=== PATIENT | male | born 1935 | race Caucasian/White ===

== ENCOUNTER 2016-11-02 01:30 | Inpatient (IN) | payer MEDICARE, OTHER ==
[2016-11-02] MEDS ORDERED: methylPREDNISolone SOD SUCC* 125 MG 2 ML VIAL IV ONE (01:32)
[2016-11-02] MEDS ORDERED: Albuterol/Ipratropium NEB.SOL* Albuterol 2.5 MG/Ipratropium 0.5 MG 3 ML INH ONE ×2 (01:32→02:02)
[2016-11-02] MEDS ORDERED: NS 0.9% 1000 ML* 1,000 ML IV SCH (01:45)
[2016-11-02 01:57] LABS: Hematocrit 37 % (42-52); Hemoglobin 11.3 g/dl (14.0-18.0); Mean Corpuscular HGB Conc 31 g/dl (31-36); Mean Corpuscular Hemoglobin 25 pg (27-31); Mean Corpuscular Volume 82 fL (80-94); Mean Platelet Volume 8 um3 (7.4-10.4); Red Blood Count 4.49 10^6/ul (4.0-5.4); Red Cell Distribution Width 19 % (10.5-15); White Blood Count 9.9 10^3/ul (3.5-10.8)
[2016-11-02] MEDS ORDERED: Albuterol/Ipratropium NEB.SOL* Albuterol 2.5 MG/Ipratropium 0.5 MG 3 ML ONE (01:59)
[2016-11-02 02:14] LABS: BUN/Creatinine Ratio 19.6 (8-20); C Reactive Protein 116.6 mg/L (< 5.00); EGFR African American 80.7 (>60); EGFR Non-African American 62.8 (>60); Globulin 3.2 g/dL (2-4); Magnesium 1.9 mg/dL (1.9-2.7); Potassium 4.2 mmol/L (3.5-5.0); Total Protein 7.2 g/dL (6.4-8.9)
[2016-11-02] MEDS ORDERED: NS 0.9% 1000 ML* 1,000 ML IV ONE (02:20)
[2016-11-02 02:23] LABS: TSH (Thyroid Stimulating Horm) 2.51 mcIU/mL (0.34-5.60); Troponin I 0.05 ng/mL (<0.04)
[2016-11-02 02:26] LABS: FIO2 100
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
[2016-11-02 02:28] LABS: PCO2 Arterial 42 mmHg (35-45)
[2016-11-02] MEDS ORDERED: CMCS: Melatonin (NF) 3 MG TAB PO PRN (03:17)
[2016-11-02] MEDS ORDERED: Ondansetron INJ* 2 MG/ML VIAL IV PRN (03:17)
[2016-11-02] MEDS ORDERED: Acetaminophen TAB* 325 MG PO PRN (03:17)
[2016-11-02] MEDS ORDERED: Albuterol 2.5 MG/3 ML NEB.SOL* (0.083%) INH PRN (03:17)
[2016-11-02] MEDS ORDERED: Diltiazem DRIP* 100 MG/100 ML ADDV.BAG IVPB ONE ×2 (04:30→04:58)
[2016-11-02] MEDS ORDERED: guaiFENesin ER TAB 600 MG PO PRN (04:53)
--- NOTE | 2016-11-02 04:57 | PN ---
Progress Note - Progress Note Note: Patient attempted to be transitioned from BiPap to VapoTherm. Work of breathing increasing precipitously within 5minutes while he maintained oxygenation. He was able to be re-stabilized back on BiPap. Situation reviewed with Clarissa Patterson MD supervisor telephone clerks re: continued monitoring on BiPap vs intubation given RML pneumonia. Dr Patterson recommended continued BiPap for now with close monitoring and conversion to intubation should he decompensate.
[2016-11-02] MEDS ORDERED: Rosuvastatin (NF) 5 MG TAB PO SCH (05:00)
[2016-11-02] MEDS: cefTRIAXone VIAL(*) 1,000 MG in NS 0.9% 50 ML* 50 ML IVPB SCH (05:07)
[2016-11-02] MEDS: Azithromycin IV(*) 500 MG in NS 0.9% 250 ML* 250 ML IVPB SCH (05:10)
[2016-11-02] MEDS: Levothyroxine TAB* 100 MCG TAB PO SCH (05:46)
[2016-11-02] MEDS ORDERED: Atorvastatin* 10 MG TAB ONE (05:48)
[2016-11-02 05:53] LABS: Hematocrit 33 % (42-52); Hemoglobin 10.2 g/dl (14.0-18.0); Mean Corpuscular HGB Conc 31 g/dl (31-36); Mean Corpuscular Hemoglobin 25 pg (27-31); Mean Corpuscular Volume 81 fL (80-94); Mean Platelet Volume 8 um3 (7.4-10.4); Red Blood Count 4.01 10^6/ul (4.0-5.4); Red Cell Distribution Width 18 % (10.5-15); White Blood Count 10.2 10^3/ul (3.5-10.8)
[2016-11-02 06:01] LABS: Urine Bacteria Absent (Absent); Urine Bilirubin Negative (Negative); Urine Glucose Negative (Negative); Urine Nitrite Negative (Negative)
[2016-11-02 06:12] LABS: BUN/Creatinine Ratio 21.8 (8-20); EGFR Non-African American 70.7 (>60)
[2016-11-02 06:23] LABS: Troponin I 0.22 ng/mL (<0.04)
[2016-11-02 07:02] LABS: Calcium 8.7 mg/dL (8.6-10.3)
--- NOTE | 2016-11-02 07:42 | RAD ---
INDICATION: Shortness of breath. COMPARISON: Comparison is made with a prior study from March 25, 2016. TECHNIQUE: A portable view of the chest was obtained. FINDINGS: The heart is mildly enlarged and unchanged from the prior exam. There is diffuse prominence of the interstitial markings with slightly more focal infiltrates at both lung bases. IMPRESSION: BIBASILAR INFILTRATES.
[2016-11-02] MEDS: Albuterol 2.5 MG/3 ML NEB.SOL* (0.083%) INH SCH ×3 (08:10→19:22)
[2016-11-02] MEDS ORDERED: predniSONE TAB* 20 MG PO SCH (08:30)
--- NOTE | 2016-11-02 08:30 | ED ---
Navi Miller Alok, scribed for Juan A Church MD on 11/02/16 at 0138 . Shortness of Breath - HPI Summary HPI Summary: 81 y/o male presents to the ED BIBA for severe SOB. Pt was given dual nebulizer by EMS en route. EMS recorded no fever. EMS recorded highest O2 sat of 87. Pt states he has been sick for a cough for a while now. PMHx includes asthma, COPD , a fib and CAD. - History of Current Complaint Hx Obtained From: Patient Onset/Duration: Lasting Hours, Still Present Current Severity: Severe Dyspnea At: Rest Alleviating Factors: EMS Tx - Dual Nebulizer Associated Signs & Symptoms: Cough (Nonproductive) - Allergy/Home Medications Allergies/Adverse Reactions: Allergies Allergy/AdvReac Type Severity Reaction Status Date / Time Milk Protein Extract Allergy Unknown Rash Verified 09/10/15 08:55 [From Spiriva] Tiotropium [From Spiriva] Allergy Unknown Rash Verified 09/10/15 08:55 Atorvastatin [From Lipitor] AdvReac Unknown Muscle Ache Verified 09/10/15 08:55 Ezetimibe [From Zetia] AdvReac Unknown Muscle Ache Verified 09/10/15 08:55 Rosuvastatin [From Crestor] AdvReac Unknown Muscle Ache Verified 09/10/15 08:55 Simvastatin [From Zocor] AdvReac Unknown Muscle Ache Verified 09/10/15 08:55 Penicillins [PCN] AdvReac See Comment Verified 09/10/15 09:44 PMH/Surg Hx/FS Hx/Imm Hx Endocrine/Hematology History: Reports: Hx Diabetes, Hx Thyroid Disease Cardiovascular History: Reports: Hx Angina, Hx Coronary Artery Disease, Hx Hypercholesterolemia, Hx Hypertension, Other Cardiovascular Problems/Disorders - cardiomyopathy Denies: Hx Myocardial Infarction, Hx Valvular Heart Disease Respiratory History: Reports: Hx Asthma, Hx Chronic Obstructive Pulmonary Disease (COPD), Hx Lung Cancer History: Denies: Hx Renal Disease Sensory History: Reports: Hx Contacts or Glasses Opthamlomology History: Reports: Hx Contacts or Glasses - Cancer History Cancer Type, Location and Year: throat 2004 Hx Chemotherapy: No Hx Radiation Therapy: Yes - Surgical History Surgery Procedure, Year, and Place: throat for throat cancer 2004 Hx Anesthesia Reactions: No Infectious Disease History: Reports: Hx Hepatitis - HEPATITIS A Denies: Hx Clostridium Difficile, Hx Human Immunodeficiency Virus (HIV), Hx of Known/Suspected MRSA, Hx Shingles, Hx Tuberculosis, Hx Known/Suspected VRE, Hx Known/Suspected VRSA, History Other Infectious Disease - Family History Known Family History: Positive: Other - Mother from rheumatic fever. - Social History Occupation: Retired Alcohol Use: Rare Alcohol Amount: occas glass of wine Substance Use Type: Reports: None Hx Tobacco Use: Yes Smoking Status (MU): Former Smoker Type: Cigarettes Have You Smoked in the Last Year: No Review of Systems Negative: Fever Positive: Shortness Of Breath, Cough All Other Systems Reviewed And Are Negative: Yes Physical Exam Triage Information Reviewed: Yes Vital Signs On Initial Exam: Initial Vital Signs Temp 98 F 11/02/16 01:34 Pulse 135 11/02/16 01:34 Resp 38 11/02/16 01:34 BP 193/149 11/02/16 01:34 Pulse Ox 89 11/02/16 01:34 Vital Signs Reviewed: Yes Appearance: Positive: Ill-Appearing - Mottled, Pain Distress - Severe respiratory distress Skin: Positive: Warm, Skin Color Reflects Adequate Perfusion, Dry Head/Face: Positive: Normal Head/Face Inspection Eyes: Positive: EOMI, ARCENIO ENT: Positive: Normal ENT inspection Neck: Positive: Supple, Nontender Respiratory/Lung Sounds: Positive: Other - Poor air movement Cardiovascular: Positive: Tachycardia Abdomen Description: Positive: Nontender, Soft Bowel Sounds: Positive: Present Musculoskeletal: Positive: Normal, Strength/ROM Intact Neurological: Positive: Normal, Sensory/Motor Intact, Alert, Oriented to Person Place, Time Psychiatric: Positive: Affect/Mood Appropriate Procedures - Central Line Central Line Lumen: triple Central Line Procedure: betadine prep, sterile drapes applied, sterile dressing applied Central Line Position: femoral (R) Anesthesia: Lidocaine Complications: none Central Line Post Position: sutured, good blood return Diagnostics - Vital Signs Vital Signs Temp Pulse Resp BP Pulse Ox 11/02/16 02:04 134 28 107/60 96 11/02/16 02:02 128 28 99/79 95 11/02/16 02:00 30 78/43 11/02/16 01:58 32 11/02/16 01:49 136 11/02/16 01:42 98 F 124 27 108/81 96 11/02/16 01:35 138 35 92 11/02/16 01:34 98 F 135 38 193/149 89 - Laboratory Lab Results: Lab Results 11/02/16 11/02/16 11/02/16 Range/Units 01:45 01:45 01:45 WBC 9.9 (3.5-10.8) 10^3/ul RBC 4.49 (4.0-5.4) 10^6/ul Hgb 11.3 L (14.0-18.0) g/dl Hct 37 L (42-52) % MCV 82 (80-94) fL MCH 25 L (27-31) pg MCHC 31 (31-36) g/dl RDW 19 H (10.5-15) % Plt Count 445 (150-450) 10^3/ul MPV 8 (7.4-10.4) um3 Neut % (Auto) 71.8 (38-83) % Lymph % (Auto) 13.3 L (25-47) % [place] % (Auto) 8.5 (1-9) % Eos % (Auto) 4.5 (0-6) % Baso % (Auto) 1.9 (0-2) % Absolute Neuts (auto) 7.1 (1.5-7.7) 10^3/ul Absolute Lymphs (auto) 1.3 (1.0-4.8) 10^3/ul Absolute Monos (auto) 0.8 (0-0.8) 10^3/ul Absolute Eos (auto) 0.4 (0-0.6) 10^3/ul Absolute Basos (auto) 0.2 (0-0.2) 10^3/ul Absolute Nucleated RBC 0.01 10^3/ul Nucleated RBC % 0.1 INR (Anticoag Therapy) 2.62 H (0.89-1.11) APTT 33.8 (26.0-36.3) seconds Patient Temperature ABG pH (7.35-7.45) ABG pCO2 (35-45) mmHg ABG pO2 (80-100) mmHg ABG HCO3 (19-31) mmol/L ABG O2 Saturation (95-98) % ABG Base Excess (-2.0-2.0) Respiration Rate O2 Delivery Device Ventilator Type Vent Mode FiO2 Inspiratory Time PEEP Pressure Support Pressure Control EPAP IPAP BiPAP Sodium 139 (133-145) mmol/L Potassium 4.2 (3.5-5.0) mmol/L Chloride 104 (101-111) mmol/L Carbon Dioxide 27 (22-32) mmol/L Anion Gap 8 (2-11) mmol/L BUN 22 (6-24) mg/dL Creatinine 1.12 (0.67-1.17) mg/dL Est GFR ( Amer) 80.7 (>60) Est GFR (Non-Af Amer) 62.8 (>60) BUN/Creatinine Ratio 19.6 (8-20) Glucose 323 H (70-100) mg/dL Hemoglobin A1c (Less than 6.0) % Lactic Acid (0.5-2.0) mmol/L Calcium 9.0 (8.6-10.3) mg/dL Magnesium 1.9 (1.9-2.7) mg/dL Total Bilirubin 1.00 (0.2-1.0) mg/dL AST 12 L (13-39) U/L ALT 9 (7-52) U/L Alkaline Phosphatase 68 (34-104) U/L Total Creatine Kinase 87 (10-223) U/L CK-MB (CK-2) 9.0 H (0.6-6.3) ng/mL Troponin I 0.05 H* (<0.04) ng/mL C-Reactive Protein 116.60 H (< 5.00) mg/L B-Natriuretic Peptide ( - 100) pg/mL Total Protein 7.2 (6.4-8.9) g/dL Albumin 4.0 (3.2-5.2) g/dL Globulin 3.2 (2-4) g/dL Albumin/Globulin Ratio 1.3 (1-3) Lipase 34 (11.0-82.0) U/L TSH 2.51 (0.34-5.60) mcIU/mL 11/02/16 11/02/16 11/02/16 Range/Units 01:45 01:45 01:45 WBC (3.5-10.8) 10^3/ul RBC (4.0-5.4) 10^6/ul Hgb (14.0-18.0) g/dl Hct (42-52) % MCV (80-94) fL MCH (27-31) pg MCHC (31-36) g/dl RDW (10.5-15) % Plt Count (150-450) 10^3/ul MPV (7.4-10.4) um3 Neut % (Auto) (38-83) % Lymph % (Auto) (25-47) % [place] % (Auto) (1-9) % Eos % (Auto) (0-6) % Baso % (Auto) (0-2) % Absolute Neuts (auto) (1.5-7.7) 10^3/ul Absolute Lymphs (auto) (1.0-4.8) 10^3/ul Absolute Monos (auto) (0-0.8) 10^3/ul Absolute Eos (auto) (0-0.6) 10^3/ul Absolute Basos (auto) (0-0.2) 10^3/ul Absolute Nucleated RBC 10^3/ul Nucleated RBC % INR (Anticoag Therapy) (0.89-1.11) APTT (26.0-36.3) seconds Patient Temperature ABG pH (7.35-7.45) ABG pCO2 (35-45) mmHg ABG pO2 (80-100) mmHg ABG HCO3 (19-31) mmol/L ABG O2 Saturation (95-98) % ABG Base Excess (-2.0-2.0) Respiration Rate O2 Delivery Device Ventilator Type Vent Mode FiO2 Inspiratory Time PEEP Pressure Support Pressure Control EPAP IPAP BiPAP Sodium (133-145) mmol/L Potassium (3.5-5.0) mmol/L Chloride (101-111) mmol/L Carbon Dioxide (22-32) mmol/L Anion Gap (2-11) mmol/L BUN (6-24) mg/dL Creatinine (0.67-1.17) mg/dL Est GFR ( Amer) (>60) Est GFR (Non-Af Amer) (>60) BUN/Creatinine Ratio (8-20) Glucose (70-100) mg/dL Hemoglobin A1c 6.9 H (Less than 6.0) % Lactic Acid 2.3 H* (0.5-2.0) mmol/L Calcium (8.6-10.3) mg/dL Magnesium (1.9-2.7) mg/dL Total Bilirubin (0.2-1.0) mg/dL AST (13-39) U/L ALT (7-52) U/L Alkaline Phosphatase (34-104) U/L Total Creatine Kinase (10-223) U/L CK-MB (CK-2) (0.6-6.3) ng/mL Troponin I (<0.04) ng/mL C-Reactive Protein (< 5.00) mg/L B-Natriuretic Peptide 411 H ( - 100) pg/mL Total Protein (6.4-8.9) g/dL Albumin (3.2-5.2) g/dL Globulin (2-4) g/dL Albumin/Globulin Ratio (1-3) Lipase (11.0-82.0) U/L TSH (0.34-5.60) mcIU/mL 11/02/16 Range/Units 02:21 WBC (3.5-10.8) 10^3/ul RBC (4.0-5.4) 10^6/ul Hgb (14.0-18.0) g/dl Hct (42-52) % MCV (80-94) fL MCH (27-31) pg MCHC (31-36) g/dl RDW (10.5-15) % Plt Count (150-450) 10^3/ul MPV (7.4-10.4) um3 Neut % (Auto) (38-83) % Lymph % (Auto) (25-47) % [place] % (Auto) (1-9) % Eos % (Auto) (0-6) % Baso % (Auto) (0-2) % Absolute Neuts (auto) (1.5-7.7) 10^3/ul Absolute Lymphs (auto) (1.0-4.8) 10^3/ul Absolute Monos (auto) (0-0.8) 10^3/ul Absolute Eos (auto) (0-0.6) 10^3/ul Absolute Basos (auto) (0-0.2) 10^3/ul Absolute Nucleated RBC 10^3/ul Nucleated RBC % INR (Anticoag Therapy) (0.89-1.11) APTT (26.0-36.3) seconds Patient Temperature Not Reportable ABG pH 7.36 (7.35-7.45) ABG pCO2 42 (35-45) mmHg ABG pO2 341 H (80-100) mmHg ABG HCO3 23.6 (19-31) mmol/L ABG O2 Saturation 100.0 H (95-98) % ABG Base Excess -1.7 (-2.0-2.0) Respiration Rate Not Reportable O2 Delivery Device Bipap Ventilator Type Not Reportable Vent Mode Not Reportable FiO2 100 Inspiratory Time Not Reportable PEEP Not Reportable Pressure Support Not Reportable Pressure Control Not Reportable EPAP Not Reportable IPAP Not Reportable BiPAP Not Reportable Sodium (133-145) mmol/L Potassium (3.5-5.0) mmol/L Chloride (101-111) mmol/L Carbon Dioxide (22-32) mmol/L Anion Gap (2-11) mmol/L BUN (6-24) mg/dL Creatinine (0.67-1.17) mg/dL Est GFR ( Amer) (>60) Est GFR (Non-Af Amer) (>60) BUN/Creatinine Ratio (8-20) Glucose (70-100) mg/dL Hemoglobin A1c (Less than 6.0) % Lactic Acid (0.5-2.0) mmol/L Calcium (8.6-10.3) mg/dL Magnesium (1.9-2.7) mg/dL Total Bilirubin (0.2-1.0) mg/dL AST (13-39) U/L ALT (7-52) U/L Alkaline Phosphatase (34-104) U/L Total Creatine Kinase (10-223) U/L CK-MB (CK-2) (0.6-6.3) ng/mL Troponin I (<0.04) ng/mL C-Reactive Protein (< 5.00) mg/L B-Natriuretic Peptide ( - 100) pg/mL Total Protein (6.4-8.9) g/dL Albumin (3.2-5.2) g/dL Globulin (2-4) g/dL Albumin/Globulin Ratio (1-3) Lipase (11.0-82.0) U/L TSH (0.34-5.60) mcIU/mL Result Diagrams: 11/02/16 05:40 11/02/16 05:40 Lab Statement: Any lab studies that have been ordered have been reviewed, and results considered in the medical decision making process. - Radiology CXR Xray Interpretation: Positive (See Comments) - No comment. Radiology Interpretation Completed By: ED Physician - Dr. Church - EKG 0142 Cardiac Rate: Tachycardia - 142 bpm EKG Rhythm: Sinus Tachycardia Course/Dx - Course Assessment/Plan: ADMIT HOSPITALIST GUARDED - Diagnoses Provider Diagnoses: Respiratory failure, acute, COPD (chronic obstructive pulmonary disease), CHF ( congestive heart failure) - Physician Notifications Discussed Care of Patient With: Dr. Bellamy @ 0214 - Will admit pt - Critical Care Time Critical Care Time: 30-74 min Discharge - Discharge Plan Condition: Guarded Disposition: ADMITTED TO [facility] The documentation as recorded by the Navi germain Alok accurately reflects the service I personally performed and the decisions made by me, Juan A Church MD.
[2016-11-02] MEDS ORDERED: Metoprolol Tartrate TAB* 25 MG PO SCH (09:00)
[2016-11-02] MEDS: Aspirin Low Dose CHEW TAB* 81 MG PO SCH (09:37)
[2016-11-02] MEDS: Clopidogrel TAB* 75 MG PO SCH (09:37)
[2016-11-02] MEDS: Docusate CAP* 100 MG PO SCH ×2 (09:37→20:09)
[2016-11-02] MEDS: CMCS: Pantoprazole TAB (NF) 40 MG TAB PO SCH (09:38)
[2016-11-02] MEDS ORDERED: NS 0.9% 1000 ML* 2,000 ML IV ONE (11:10)
--- NOTE | 2016-11-02 11:15 | PN ---
Progress Note - Progress Note Note: CRITICAL CARE MEDICINE Date: 11/02/16 Time: 1030 SUBJECTIVE: Patient seen and examined. PHYSICAL EXAM: Vital Signs: Reviewed. Neurologic: awake, communicating. HEENT: pupils equal. Sclera anicteric. Trachea midline. Cardiovascular: S1 S2, irr Respiratory: coarse bl with rales Abdomen: Soft, nt. No r/g/r. Extremities: Warm. Access: fem cvc LABS: Reviewed. IMAGING: Reviewed. MEDICATIONS: Reviewed. ASSESSMENT: 81 M Acute hypoxic resp failure Septic shock sec to CAP Aspiration pneumonitis Emphysema ALTHEA on nocturnal O2 chronically Afib rvr, on chronic anticoag PLAN: Neurologic: stable enough. prn morphine Cardiovascular: Perfusiing but high metabolic demands. Afib rvr sec to wob. on low dose cardizem for now. Receiving volume and will still need today. Bolus now and then cut back if volume met. Respiratory: wob too high. MV close to 20 lpm, on 60% with bipap. still early and dry in his course. discussed early intubation needs today and he expresses understanding. Desires to have his come in first, and I discussed with her on the phone and she is on her way. Gastrointestinal: npo for now. ogt post intubation and early nutrition. Renal/Metabolic: stable, f/u needs. travis Infectious Disease: on ceftriaxone and azithro. adequete as this is much more likely aspiration and nonbacterial, but keep at present. Can obtain better sputum with trach aspirate to f/u. Hematology: stable, can stay on his xeralto Endocrine: may benefit from low dose steroid course Musculoskeletal: bedrest Psych/Social: will update on arrival Supportive and preventative care as ordered. SUP: H2 VTE prophylaxis: xeralto Travis catheter given critical illness, monitoring needs for accurate assessment of MARII and KDIGO criteria for critically ill patients and to avoid potential harms of urinary retention, skin breakdown/ulcers. Disposition: ICU Code Status: Full presently Critical Care Time: 35min Bakari Newton DO
[2016-11-02] MEDS ORDERED: Propofol* 100 ML ONE (11:28)
[2016-11-02] MEDS ORDERED: fentaNYL* 50 MCG/ML 5 ML VIAL (250 MCG VIAL) ONE (11:36)
[2016-11-02] MEDS ORDERED: Propofol* 10 MG/ML 20 ML BTL IV PUSH ONE (11:40)
[2016-11-02] MEDS ORDERED: fentaNYL* 50 MCG/ML 2 ML VIAL (100 MCG VIAL) IV SLOW PU PRN (11:48)
[2016-11-02] MEDS: Propofol* 100 ML IV SCH ×2 (11:50→20:33)
[2016-11-02] MEDS ORDERED: Diltiazem TAB* 30 MG PO SCH (12:00)
[2016-11-02] MEDS ORDERED: fentaNYL* 50 MCG/ML 2 ML VIAL (100 MCG VIAL) ONE ×2 (12:38→15:01)
[2016-11-02] MEDS: fentaNYL* 50 MCG/ML 2 ML VIAL (100 MCG VIAL) ONE ×2 (12:41→12:58)
[2016-11-02] MEDS: Mometasone/Formoter 200/5 MDI INH SCH ×2 (12:55→19:10)
[2016-11-02] MEDS: NS 0.9% 1000 ML* 1,000 ML IV SCH (13:12)
[2016-11-02] MEDS: CMC: Rosuvastatin (NF) 5 MG TAB PO SCH (14:26)
[2016-11-02] MEDS: Chlorhexidine MOUTHWASH 0.12%* 15 ML UDC TOPICAL SCH ×4 (14:26→23:44)
--- NOTE | 2016-11-02 14:52 | RAD ---
Indication: Post intubation. Comparison: 0155 hours November 02, 2016. Technique: Upright AP 1400 hours Report: Endotracheal tube tip is 6 cm above the Cheryl. Nasogastric tube passes through the level of the esophagogastric junction and outside caudally. Small to moderate RIGHT pneumothorax with the pleural line displaced 1.7 cm from the parietal pleura laterally is new compared with the 0155 hours exam of the same date. Negative for mediastinal shift. Elevated lung volumes and coarse interstitial markings as well as patchy upper lung zone rarefaction. Alveolar opacity at the bilateral lung bases may represent atelectasis or inflammatory infiltrate. Cardiomegaly. Unremarkable central pulmonary vasculature. IMPRESSION: 1. New small to moderate RIGHT pneumothorax without associated mediastinal shift. 2. Stigmata of advanced chronic obstructive pulmonary disease and emphysema with bibasilar atelectasis versus inflammatory infiltrates. 3. The endotracheal tube could be advanced. Results discussed with Dr. Newton 11/02/2016 2:30 PM EDT
[2016-11-02] MEDS ORDERED: fentaNYL* 50 MCG/ML 2 ML VIAL (100 MCG VIAL) IV SLOW PU ONE (14:59)
--- NOTE | 2016-11-02 15:34 | PN ---
Progress Note - Progress Note Note: CRITICAL CARE MEDICINE PROCEDURE NOTE DATE OF PROCEDURE: SERVICE: Critical Care Medicine LOCATION OF PROCEDURE: ICU PROCEDURE: Chest tube placement PROCEDURALIST: Dr. Newton Consent obtain: Unable to obtain. Called patient's but did not answer nor call back from message left. A reasonable person would consent to this procedure need and procedure deemed emergent. Time out held: Yes INDICATION: RIGHT Pneumothorax PROCEDURE: Oxygenation maintained and vitals monitored. Patient in supine position Site and side marked with initials and date. Pre-medication with fentanyl 50mcg total for pain. Chlorhexidine prep x 2 at site and full sterile drape, gown, and gloves utilized. Total 10ml 1% lidocaine utilized locally. Small incision via scalpel at skin. Standard sterile technique utilized. Needle retracted when air aspirated via advanced negative pressure technique. Catheter was inserted to 15cm and heimlick valve applied. Minimal to Nil blood loss. Site covered with tegaderm and re-enforced with tape. Portable chest x-ray pending. Patient otherwise tolerated well. Bakari Newton DO
--- NOTE | 2016-11-02 15:59 | RAD ---
HISTORY: Follow-up pneumothorax COMPARISONS: November 02, 2016 at 12:50 PM VIEWS:1: Single frontal portable view of the chest at 3:50 PM FINDINGS: LINES AND TUBES: An endotracheal tube is noted with the tip overlying the trachea at the level clavicles. A gastric tube is noted. The side port is in the left upper quadrant in a prepyloric position. There is a right-sided chest tube. CARDIOMEDIASTINAL SILHOUETTE: The cardiomediastinal silhouette is normal for portable technique. PLEURA: There is trace residual right apical pneumothorax, decreased from the previous examination. LUNG PARENCHYMA: There is confluent alveolar opacification lung bases bilaterally. There is a diffuse reticular pattern with indistinct pulmonary vessels. ABDOMEN: The upper abdomen is clear. There is no subphrenic gas. BONES AND SOFT TISSUES: No bone or soft tissue abnormalities are noted. IMPRESSION: 1. LINES AND TUBES ABOVE. 2. TRACE RESIDUAL RIGHT APICAL PNEUMOTHORAX. 3. PULMONARY INTERSTITIAL EDEMA WITH BIBASILAR AIRSPACE DISEASE
[2016-11-02] MEDS: Rivaroxaban TAB(*) 20 MG TAB PO SCH (17:32)
[2016-11-02] MEDS: Insulin REGULAR(*) 1 UNITS UNIT SUBCUT SCH (17:46)
[2016-11-02] MEDS ORDERED: Norepinephrine 16MCG/ML IVPRE* 4,000 MCG/250 ML BAG IV SCH (19:30)
[2016-11-02] MEDS ORDERED: Norepinephrine VIAL* 1 MG/ML 4 ML VIAL ONE (19:43)
[2016-11-02] MEDS: Hydrocortisone INJ* 100 MG VIAL IV SCH (21:49)
[2016-11-03] MEDS: Insulin REGULAR(*) 1 UNITS UNIT SUBCUT SCH ×4 (00:21→17:48)
[2016-11-03] MEDS: Albuterol 2.5 MG/3 ML NEB.SOL* (0.083%) INH SCH ×4 (00:33→19:31)
[2016-11-03] MEDS ORDERED: Norepinephrine VIAL* 4 MG in NS 0.9% 250 ML* 246 ML IVPB SCH ×2 (01:30→09:42)
[2016-11-03] MEDS: NS 0.9% 1000 ML* 1,000 ML IV SCH (02:15)
--- NOTE | 2016-11-03 03:39 | PRO ---
DATE OF PROCEDURE: 11/02/16 - ROOM #ICU-08 SERVICE: Critical Care Medicine. LOCATION OF PROCEDURE: ICU. PROCEDURE PERFORMED: Endotracheal intubation. PROCEDURALIST: Janet Clemens NP, Dr. Newton supervised. CONSENT OBTAINED: Yes. TIME-OUT HELD: None indicated. INDICATION: Acute respiratory failure secondary to COPD exacerbation. DESCRIPTION OF PROCEDURE: Oxygenation was maintained and vitals were monitored. The patient was placed in the supine position. He was pre-medicated with 200 mcg of fentanyl and 50 mg of propofol. The GlideScope #3 was inserted with a grade 3 view. An 8.0 endotracheal tube was inserted to 24 at the lip. He had good chest rise with breath sounds bilaterally. No air movement heard over the stomach. He had positive color change on his end-tidal CO2. The patient tolerated the procedure well. TIME SPENT: Critical care time spent was approximately 30 minutes with [place] [id number]/[facility] #: [id number] MTDD
[2016-11-03] MEDS: Propofol* 100 ML IV SCH ×4 (04:13→23:38)
[2016-11-03] MEDS: Azithromycin IV(*) 500 MG in NS 0.9% 250 ML* 250 ML IVPB SCH (04:14)
[2016-11-03] MEDS: Chlorhexidine MOUTHWASH 0.12%* 15 ML UDC TOPICAL SCH ×5 (04:14→20:29)
[2016-11-03] MEDS: Hydrocortisone INJ* 100 MG VIAL IV SCH ×4 (04:14→20:29)
[2016-11-03] MEDS: cefTRIAXone VIAL(*) 1,000 MG in NS 0.9% 50 ML* 50 ML IVPB SCH (05:54)
[2016-11-03 06:07] LABS: Hematocrit 31 % (42-52); Hemoglobin 9.6 g/dl (14.0-18.0); Mean Corpuscular HGB Conc 31 g/dl (31-36); Mean Corpuscular Hemoglobin 25 pg (27-31); Mean Corpuscular Volume 82 fL (80-94); Mean Platelet Volume 8 um3 (7.4-10.4); Red Blood Count 3.79 10^6/ul (4.0-5.4); Red Cell Distribution Width 19 % (10.5-15); White Blood Count 13.1 10^3/ul (3.5-10.8)
[2016-11-03 06:23] LABS: BUN/Creatinine Ratio 30.1 (8-20); Calcium 7.7 mg/dL (8.6-10.3); EGFR African American 114.1 (>60); EGFR Non-African American 88.7 (>60); Magnesium 1.8 mg/dL (1.9-2.7); Phosphorus 3.1 mg/dL (2.5-5.0); Potassium 4.6 mmol/L (3.5-5.0)
[2016-11-03] MEDS: Levothyroxine TAB* 100 MCG TAB PO SCH (06:27)
[2016-11-03 06:42] LABS: Troponin I 0.08 ng/mL (<0.04)
--- NOTE | 2016-11-03 07:53 | RAD ---
Indication: Follow-up pneumothorax Comparison: November 02, 2016 1447 hours Technique: Upright AP 0615 hours Report: Heimlich valve RIGHT apical chest tube in place. Gross complete resolution of pneumothorax. Diffuse moderate prominence of the interstitial markings. Decreased opacity at the RIGHT lung base most consistent with resolution of atelectasis. Persistent opacity at the LEFT lung base which may represent atelectasis or pneumonia. Suggestion of trace RIGHT and small LEFT dependent pleural effusions without change. Endotracheal tube tip approximately 3.5 cm above the Cheryl. Nasogastric tube passes to the gastric body antrum junction. IMPRESSION: Negative for recurrence of pneumothorax. Persistent opacity at the LEFT lung base which may represent atelectasis or pneumonia. Suggestion of trace RIGHT and small LEFT dependent pleural effusions without change.
[2016-11-03] MEDS: CMCS: Pantoprazole TAB (NF) 40 MG TAB PO SCH (09:03)
[2016-11-03] MEDS: Aspirin Low Dose CHEW TAB* 81 MG PO SCH (09:03)
[2016-11-03] MEDS: Clopidogrel TAB* 75 MG PO SCH (09:03)
[2016-11-03] MEDS: Docusate CAP* 100 MG PO SCH ×3 (09:04→20:36)
[2016-11-03] MEDS: Mometasone/Formoter 200/5 MDI INH SCH ×2 (09:05→19:32)
[2016-11-03] MEDS ORDERED: Magnesium Sulfate 2 GM IV* 2 GM/50 ML BAG IVPB ONE (09:45)
--- NOTE | 2016-11-03 10:48 | PN ---
Progress Note - Progress Note Note: CRITICAL CARE MEDICINE Date: 11/03/16 Time: 930 SUBJECTIVE: Patient seen and examined. PHYSICAL EXAM: Vital Signs: Reviewed. Neurologic: awake, communicating. HEENT: pupils equal. Sclera anicteric. Trachea midline. Cardiovascular: S1 S2, irr Respiratory: coarse byut better bl fine rales Abdomen: Soft, nt. No r/g/r. Extremities: Warm. Access: fem cvc LABS: Reviewed. IMAGING: Reviewed. MEDICATIONS: Reviewed. ASSESSMENT: 81 M Acute hypoxic resp failure Septic shock sec to CAP Aspiration pneumonitis Emphysema Cardiac demand ischemia/NSTEMI type 2 ALTHEA on nocturnal O2 chronically Afib rvr, on chronic anticoag Spont Right Pneumothorax sec to emphysema and ppv Relative adrenal insuff PLAN: Neurologic: rass -2. gtt, prns Cardiovascular: Perfusing. Hr better. troponins down and no surprise for demand ischemia but high metabolic demands; but better. Afib rate control. May still need levo especially in his setting of pulm htn and hopefully can come off post vent liberation tomorrow. Respiratory: wob better. cpap today. not ready to liberate yet today but hopefully tomorrow to HFo2. needs chest tube for now. Gastrointestinal: tf. sup. Renal/Metabolic: better. bun up post steroids. travis Infectious Disease: on ceftriaxone and azithro for CAP. cx ngtd Hematology: stable, on his xeralto Endocrine: pulse steroid course Musculoskeletal: bedrest today Psych/Social: updated Supportive and preventative care as ordered. SUP: H2 VTE prophylaxis: xeralto Travis catheter given critical illness, monitoring needs for accurate assessment of MARII and KDIGO criteria for critically ill patients and to avoid potential harms of urinary retention, skin breakdown/ulcers. Disposition: ICU Code Status: Full Critical Care Time: 35min Bakari Newton DO
[2016-11-03] MEDS ORDERED: Insulin GLARGINE(*) 1 UNITS UNIT SUBCUT ONE (12:00)
[2016-11-03] MEDS ORDERED: Norepinephrine 16MCG/ML IVPRE* 4,000 MCG/250 ML BAG IV SCH (16:00)
[2016-11-03] MEDS: Rivaroxaban TAB(*) 20 MG TAB PO SCH (17:16)
[2016-11-04] MEDS: Insulin REGULAR(*) 1 UNITS UNIT SUBCUT SCH ×4 (00:08→18:06)
[2016-11-04] MEDS: Chlorhexidine MOUTHWASH 0.12%* 15 ML UDC TOPICAL SCH ×5 (00:09→14:46)
[2016-11-04] MEDS: Albuterol 2.5 MG/3 ML NEB.SOL* (0.083%) INH SCH ×4 (01:37→20:22)
[2016-11-04] MEDS: Hydrocortisone INJ* 100 MG VIAL IV SCH ×3 (02:28→15:18)
[2016-11-04] MEDS: Azithromycin IV(*) 500 MG in NS 0.9% 250 ML* 250 ML IVPB SCH (04:07)
[2016-11-04 05:43] LABS: Hematocrit 29 % (42-52); Hemoglobin 9.1 g/dl (14.0-18.0); Mean Corpuscular HGB Conc 32 g/dl (31-36); Mean Corpuscular Hemoglobin 26 pg (27-31); Mean Corpuscular Volume 82 fL (80-94); Mean Platelet Volume 8 um3 (7.4-10.4); Red Blood Count 3.52 10^6/ul (4.0-5.4); Red Cell Distribution Width 19 % (10.5-15); White Blood Count 11.9 10^3/ul (3.5-10.8)
[2016-11-04] MEDS: cefTRIAXone VIAL(*) 1,000 MG in NS 0.9% 50 ML* 50 ML IVPB SCH (05:49)
[2016-11-04 06:26] LABS: BUN/Creatinine Ratio 28.9 (8-20); Calcium 8.2 mg/dL (8.6-10.3); EGFR African American 126.3 (>60); EGFR Non-African American 98.2 (>60); Magnesium 2.5 mg/dL (1.9-2.7); Phosphorus 2.6 mg/dL (2.5-5.0); Potassium 4.8 mmol/L (3.5-5.0)
[2016-11-04] MEDS: Levothyroxine TAB* 100 MCG TAB PO SCH (07:13)
[2016-11-04] MEDS: Aspirin Low Dose CHEW TAB* 81 MG PO SCH (07:57)
[2016-11-04] MEDS: Lansoprazole SOLUTAB* 30 MG G TUBE SCH (07:57)
[2016-11-04] MEDS: Clopidogrel TAB* 75 MG PO SCH (07:57)
[2016-11-04] MEDS: Docusate CAP* 100 MG PO SCH ×2 (08:16→21:13)
[2016-11-04] MEDS ORDERED: Furosemide IV* 10 MG/ML VIAL (40 MG) IV SLOW PU ONE (08:41)
--- NOTE | 2016-11-04 09:11 | PN ---
Progress Note - Progress Note Note: CRITICAL CARE MEDICINE Date: 11/04/16 Time: 800 SUBJECTIVE: Patient seen and examined. off levo; tf held PHYSICAL EXAM: Vital Signs: Reviewed. Neurologic: awake, communicating but lethargic on prop HEENT: pupils equal. Sclera anicteric. Trachea midline. Cardiovascular: S1 S2, irr Respiratory: distant; ct in place; cpap 10/10 Abdomen: Soft, nt. Extremities: Warm. Access: fem cvc LABS: Reviewed. IMAGING: Reviewed. MEDICATIONS: Reviewed. ASSESSMENT: 81 M Acute hypoxic resp failure Septic shock sec to CAP Aspiration pneumonitis Emphysema Cardiac demand ischemia/NSTEMI type 2 ALTHEA on nocturnal O2 chronically Afib rvr, on chronic anticoag Spont Right Pneumothorax sec to emphysema and ppv Relative adrenal insuff PLAN: Neurologic: rass -1, lighten further. Cardiovascular: Perfusing. lasix today. will f/u afib rate control needs. remains off levo Respiratory: michael high level cpap and wob dissipated. liberate today to HFO2 to help flow states. chest tube out later today or tomorrow perhaps. Gastrointestinal: tf held. sup. eval swallow post liberation Renal/Metabolic: stable, lasix today Infectious Disease: on ceftriaxone and azithro for course for CAP and can dc C3 and simply complete 5 days azithro. Hematology: stable, xeralto Endocrine: pulse steroid course taper Musculoskeletal: oob today Psych/Social: updated yesterday Supportive and preventative care as ordered. SUP: H2 VTE prophylaxis: xeralto Humphreys catheter out later today Disposition: ICU Code Status: Full Critical Care Time: 35min Bakari Newton DO
[2016-11-04] MEDS: CMC: Rosuvastatin (NF) 5 MG TAB PO SCH (12:53)
[2016-11-04] MEDS: Mometasone/Formoter 200/5 MDI INH SCH ×2 (14:46→20:23)
[2016-11-04] MEDS: Rivaroxaban TAB(*) 20 MG TAB PO SCH (15:26)
[2016-11-05] MEDS: Insulin REGULAR(*) 1 UNITS UNIT SUBCUT SCH ×4 (00:05→17:50)
[2016-11-05] MEDS: Albuterol 2.5 MG/3 ML NEB.SOL* (0.083%) INH SCH ×4 (01:18→19:59)
[2016-11-05] MEDS: Azithromycin IV(*) 500 MG in NS 0.9% 250 ML* 250 ML IVPB SCH (04:45)
[2016-11-05] MEDS: Levothyroxine TAB* 100 MCG TAB PO SCH (06:08)
[2016-11-05] MEDS: Mometasone/Formoter 200/5 MDI INH SCH ×2 (07:43→20:00)
[2016-11-05] MEDS: Aspirin Low Dose CHEW TAB* 81 MG PO SCH (08:14)
[2016-11-05] MEDS: Clopidogrel TAB* 75 MG PO SCH (08:15)
[2016-11-05] MEDS: predniSONE TAB* 20 MG PO SCH (08:15)
[2016-11-05] MEDS: Docusate CAP* 100 MG PO SCH (08:15)
[2016-11-05] MEDS: Lansoprazole SOLUTAB* 30 MG G TUBE SCH (08:16)
--- NOTE | 2016-11-05 08:29 | RAD ---
Indication: Follow-up pneumothorax. Hypoxic respiratory failure. Cardiac disease and COPD. Comparison: November 03, 2016 Technique: Upright AP 0633 hours Report: Endotracheal tube and nasogastric tube no longer present. Interval enlargement of RIGHT pneumothorax with the pleural line now visible at the level of the posterior segment of the RIGHT fourth rib. Heimlich valve RIGHT apical chest tube remains in place. Negative for significant mediastinal shift. Increased consolidation at the bilateral lung bases increased consolidation at the bilateral lung bases may represent atelectasis given relative decreased lung volumes or inflammatory infiltrates. Small bilateral pleural effusions appear increased. Upper normal heart size. Grossly unremarkable central pulmonary vasculature. IMPRESSION: Interval enlargement of RIGHT pneumothorax with the pleural line now visible at the level of the posterior segment of the RIGHT fourth rib.
[2016-11-05] MEDS ORDERED: Furosemide IV* 10 MG/ML VIAL (40 MG) IV SLOW PU ONE (09:58)
[2016-11-05] MEDS: Potassium Chlor TAB* 20 MEQ TAB.ER PO SCH ×2 (10:46→21:40)
[2016-11-05] MEDS ORDERED: Docusate CAP* 100 MG PO PRN (10:47)
--- NOTE | 2016-11-05 11:04 | PN ---
Progress Note - Progress Note Note: CRITICAL CARE MEDICINE Date: 11/05/16 Time: 900 SUBJECTIVE: Patient seen and examined. PHYSICAL EXAM: Vital Signs: Reviewed. Neurologic: awake, communicating and improved. HEENT: pupils equal. Sclera anicteric. Trachea midline. Cardiovascular: S1 S2, irr, tachy Respiratory: distant; and dec on R with few crackles in R bases. ct in place. 8L Abdomen: Soft, nt. Extremities: Warm. Dep edema Access: fem cvc intact LABS: Reviewed. IMAGING: Reviewed. CXR with inc ptx, despite ct in place. Further atelectasis and fluid sequestration to R base (reviewed cxr with pts ) MEDICATIONS: Reviewed. ASSESSMENT: 81 M Acute hypoxic resp failure Septic shock sec to CAP Aspiration pneumonitis Emphysema Cardiac demand ischemia/NSTEMI type 2 ALTHEA on nocturnal O2 chronically Afib rvr, on chronic anticoag Spont Right Pneumothorax sec to emphysema and ppv Relative adrenal insuff PLAN: Neurologic: stable. Cardiovascular: Perfusing. lasix again today. start back on bb as he needs to maintain rate control Respiratory: weaning on O2 but still needs some flow. Avoiding ppv. ct to suction today. repeat cxr. IS. puljaleel gutiérrez. Gastrointestinal: passed swallow. advance diet. Renal/Metabolic: stable, lasix today with k and f/u labs in am. kelley travis Infectious Disease: azithro to complete after saad dose. this really isn't an abx fix Hematology: stable, on xeralto Endocrine: prednisone taper. glu better. no long acting insulin needs. Musculoskeletal: oob today and pt eval/ Psych/Social: updated Supportive and preventative care as ordered. SUP: H2 VTE prophylaxis: xeralto Disposition: ICU today and potential floor 24-48h Code Status: Full Critical Care Time: 32min Bakari Newton DO
[2016-11-05] MEDS: Metoprolol Tartrate TAB* 25 MG PO SCH ×2 (11:55→21:36)
[2016-11-05] MEDS: PARoxetine HCL TAB* 10 MG PO SCH (11:55)
[2016-11-05] MEDS: Famotidine TAB* 20 MG PO SCH (17:04)
[2016-11-05] MEDS: Rivaroxaban TAB(*) 20 MG TAB PO SCH (17:04)
[2016-11-05] MEDS ORDERED: Fluticasone-Salmeterol 100-50* DISKUS INH SCH (21:00)
[2016-11-06] MEDS: Insulin REGULAR(*) 1 UNITS UNIT SUBCUT SCH ×5 (00:10→20:55)
[2016-11-06] MEDS: Albuterol 2.5 MG/3 ML NEB.SOL* (0.083%) INH SCH ×4 (00:51→19:46)
[2016-11-06] MEDS: Azithromycin IV(*) 500 MG in NS 0.9% 250 ML* 250 ML IVPB SCH (04:30)
[2016-11-06 05:19] LABS: Hematocrit 30 % (42-52); Hemoglobin 9.5 g/dl (14.0-18.0); Mean Corpuscular HGB Conc 32 g/dl (31-36); Mean Corpuscular Hemoglobin 25 pg (27-31); Mean Corpuscular Volume 80 fL (80-94); Mean Platelet Volume 7 um3 (7.4-10.4); Red Blood Count 3.75 10^6/ul (4.0-5.4); Red Cell Distribution Width 19 % (10.5-15); White Blood Count 9.7 10^3/ul (3.5-10.8)
[2016-11-06 05:34] LABS: BUN/Creatinine Ratio 33.3 (8-20); Calcium 8.4 mg/dL (8.6-10.3); EGFR African American 117.3 (>60); EGFR Non-African American 91.2 (>60); Magnesium 1.9 mg/dL (1.9-2.7); Phosphorus 2.5 mg/dL (2.5-5.0); Potassium 4.4 mmol/L (3.5-5.0)
[2016-11-06] MEDS: Levothyroxine TAB* 100 MCG TAB PO SCH (05:45)
[2016-11-06] MEDS: Clopidogrel TAB* 75 MG PO SCH (08:44)
[2016-11-06] MEDS: Metoprolol Tartrate TAB* 25 MG PO SCH ×2 (08:44→20:54)
[2016-11-06] MEDS: Aspirin Low Dose CHEW TAB* 81 MG PO SCH (08:44)
[2016-11-06] MEDS: PARoxetine HCL TAB* 10 MG PO SCH (08:44)
[2016-11-06] MEDS: predniSONE TAB* 20 MG PO SCH (08:44)
[2016-11-06] MEDS: Potassium Chlor TAB* 20 MEQ TAB.ER PO SCH (08:44)
[2016-11-06] MEDS: Mometasone/Formoter 200/5 MDI INH SCH ×2 (08:57→19:46)
--- NOTE | 2016-11-06 09:19 | RAD ---
Indication: Follow-up atelectasis. Comparison: 0544 hours November 05, 2016 Technique: Upright AP 1210 hours Report: The RIGHT pneumothorax has resolved. Heimlich valve RIGHT apical chest tube remains in place. Only mild improvement in opacities in the bilateral mid to lower lung zones despite mildly improved lung volumes. Small bilateral pleural effusions without change. Upper normal limits heart size. The central pulmonary vasculature is mildly prominent. IMPRESSION: 1. Resolved RIGHT pneumothorax. 2. Persistent lower lung zone opacities despite improved lung volumes. Consider pulmonary edema as well as inflammatory infiltrates.
--- NOTE | 2016-11-06 11:47 | PN ---
Progress Note - Progress Note Note: CRITICAL CARE MEDICINE Date: 11/06/16 Time: 900 SUBJECTIVE: Patient seen and examined. PHYSICAL EXAM: Vital Signs: Reviewed. Neurologic: awake, communicating well. HEENT: pupils equal. Sclera anicteric. Trachea midline. Cardiovascular: S1 S2, irr, tachy Respiratory: distant but good Abdomen: Soft, nt. Extremities: Warm. Dep edema better. Access: fem site well and line out. LABS: Reviewed. IMAGING: Reviewed. MEDICATIONS: Reviewed. ASSESSMENT: 81 M Acute hypoxic resp failure Septic shock sec to CAP Aspiration pneumonitis Emphysema Cardiac demand ischemia/NSTEMI type 2 ALTHEA on nocturnal O2 chronically Afib rvr, on chronic anticoag Spont Right Pneumothorax sec to emphysema and ppv Relative adrenal insuff PLAN: Neurologic: stable. Cardiovascular: Perfusing. hr better back on his bb that he had recently been weaned off of. would keep as is for now and outpt revisit with Dr. Munoz. lasix iv given last two days but allow him to handle from now. consider prn. Respiratory: weaning on O2 but still with high needs but improving dynamics. ct to water seal today. repeat cxr in am tomorrow. If well, can dc chest tube at that time. IS. pulm toliet continued. Gastrointestinal: doing well with diet. Renal/Metabolic: stable. Infectious Disease: azithro completing. Hematology: stable, on xeralto Endocrine: prednisone taper. glu ok. on his t4 Musculoskeletal: oob today and pt eval Psych/Social: updated Supportive and preventative care as ordered. SUP: H2 VTE prophylaxis: xeralto Disposition: can transfer to floor; hopefully can meet disposition mon out of hosp come wednesday Code Status: Full Critical Care Time: 25min Bakari Newton DO
[2016-11-06] MEDS: CMC: Rosuvastatin (NF) 5 MG TAB PO SCH (12:34)
[2016-11-06] MEDS: Famotidine TAB* 20 MG PO SCH (16:45)
[2016-11-06] MEDS: Rivaroxaban TAB(*) 20 MG TAB PO SCH (16:45)
[2016-11-07] MEDS: Albuterol 2.5 MG/3 ML NEB.SOL* (0.083%) INH SCH ×2 (03:13→07:21)
[2016-11-07] MEDS: Levothyroxine TAB* 100 MCG TAB PO SCH (05:39)
[2016-11-07] MEDS: Mometasone/Formoter 200/5 MDI INH SCH (07:18)
[2016-11-07] MEDS: Insulin REGULAR(*) 1 UNITS UNIT SUBCUT SCH ×4 (08:35→22:03)
[2016-11-07] MEDS ORDERED: Mometasone/Formoter 200/5 MDI INH SCH (09:00)
--- NOTE | 2016-11-07 09:00 | PN ---
Subjective Date of Service: 11/07/16 Interval History: Mild cough, not productive. Walks some. Good appetite. No new c/o. Objective Active Medications: Acetaminophen (Tylenol Tab*) 650 mg PO Q6H PRN PRN Reason: FEVER/PAIN Last Admin: 11/05/16 08:15 Dose: 650 mg Albuterol (Ventolin 2.5 Mg/3 Ml Neb.Maria Luisa*) 2.5 mg INH Q2H PRN PRN Reason: SOB/WHEEZING Last Admin: 11/02/16 04:11 Dose: 2.5 mg Albuterol (Ventolin 2.5 Mg/3 Ml Neb.Maria Luisa*) 2.5 mg INH [id number] AWAKE [facility] Last Admin: 11/07/16 07:21 Dose: 2.5 mg Aspirin (Aspirin Low Dose Tab*) 81 mg PO DAILY [facility] Last Admin: 11/06/16 08:44 Dose: 81 mg Clopidogrel Bisulfate (Plavix Tab*) 75 mg PO DAILY [facility] Last Admin: 11/06/16 08:44 Dose: 75 mg Docusate Sodium (Colace Cap*) 200 mg PO BID PRN PRN Reason: CONSTIPATION Famotidine (Pepcid Tab*) 20 mg PO QPM [facility] Last Admin: 11/06/16 16:45 Dose: 20 mg Guaifenesin (Mucinex*) 600 mg PO DAILY PRN PRN Reason: COUGH Last Admin: 11/02/16 05:46 Dose: 600 mg Insulin Human Regular (Insulin Regular(*)) 0 units SUBCUT ACHS [facility] PRN Reason: Protocol Last Admin: 11/07/16 08:35 Dose: Not Given Levothyroxine Sodium (Synthroid Tab*) 100 mcg PO DAILY@0600 [facility] Last Admin: 11/07/16 05:39 Dose: 100 mcg Melatonin (Melatonin (Nf)) 3 mg PO BEDTIME PRN; Protocol PRN Reason: Sleep Metoprolol Tartrate (Lopressor Tab*) 25 mg PO BID [facility] Last Admin: 11/06/16 20:54 Dose: 25 mg Mometasone Furoate/Formoterol Fumar (Dulera 200/5 Mdi*) 2 puff INH BID [facility] Last Admin: 11/07/16 07:18 Dose: 2 puff Ondansetron HCl (Zofran Inj*) 4 mg IV Q6H PRN PRN Reason: NAUSEA Paroxetine HCl (Paxil Tab*) 10 mg PO DAILY [facility] Last Admin: 11/06/16 08:44 Dose: 10 mg Prednisone (Deltasone Tab*) 10 mg PO DAILY [facility] Rivaroxaban (Xarelto (*)) 20 mg PO DAILY@1700 [facility] Last Admin: 11/06/16 16:45 Dose: 20 mg Rosuvastatin Calcium (Crestor (Nf)) 5 mg PO MoWeFr@0900 [facility] PRN Reason: Protocol Last Admin: 11/06/16 12:34 Dose: 5 mg Vital Signs 11/06/16 11/06/16 11/06/16 08:57 08:58 09:00 Temperature Pulse Rate 96 23 73 Respiratory 23 88 25 Rate Blood Pressure 127/73 (mmHg) O2 Sat by Pulse 88 98 100 Oximetry 11/06/16 11/06/16 11/06/16 10:00 11:00 12:00 Temperature 98.7 F Pulse Rate 86 77 83 Respiratory 24 23 22 Rate Blood Pressure 107/89 101/62 100/64 (mmHg) O2 Sat by Pulse 100 100 91 Oximetry 11/06/16 11/06/16 11/06/16 13:00 13:30 14:21 Temperature 97.5 F Pulse Rate 90 84 120 Respiratory 22 20 22 Rate Blood Pressure 93/60 90/53 (mmHg) O2 Sat by Pulse 91 92 100 Oximetry 11/06/16 11/06/16 11/06/16 14:37 15:37 16:42 Temperature 97.5 F 97.6 F Pulse Rate 94 84 Respiratory 22 20 Rate Blood Pressure 90/53 91/54 (mmHg) O2 Sat by Pulse 100 96 95 Oximetry 11/06/16 11/06/16 11/06/16 19:48 20:00 20:09 Temperature 97.0 F Pulse Rate 93 90 Respiratory 16 20 20 Rate Blood Pressure 113/54 (mmHg) O2 Sat by Pulse 96 93 Oximetry 11/06/16 11/06/16 11/07/16 20:45 23:22 00:22 Temperature 97.0 F 97.5 F Pulse Rate 78 Respiratory 18 Rate Blood Pressure 114/59 (mmHg) O2 Sat by Pulse 98 96 Oximetry 11/07/16 11/07/16 03:42 07:21 Temperature 97.5 F Pulse Rate 83 81 Respiratory 18 17 Rate Blood Pressure 121/71 (mmHg) O2 Sat by Pulse 92 97 Oximetry Oxygen Devices in Use Now: Nasal Cannula Appearance: Alert, sitting up in bed. In good spirits. Looks comfortable. Eyes: No Scleral Icterus Ears/Nose/Mouth/Throat: Clear Oropharnyx, Mucous Membranes Moist Neck: NL Appearance and Movements; NL JVP, No Thyroid Enlargement, Masses Respiratory: Clear to Auscultation, Clear to Percussion Cardiovascular: NL Sounds; No Murmurs; No JVD, RRR, No Edema, - Extremities: No Edema, No Clubbing, Cyanosis, - Skin: No Rash or Ulcers, No Nodules or Sclerosis, - Neurological: Alert and Oriented x 3, NL Sensation Result Diagrams: 11/06/16 05:08 11/06/16 05:08 Additional Lab and Data: Lab Results 11/02/16 11/02/16 11/02/16 Range/Units 01:45 01:45 01:45 WBC 9.9 (3.5-10.8) 10^3/ul RBC 4.49 (4.0-5.4) 10^6/ul Hgb 11.3 L (14.0-18.0) g/dl Hct 37 L (42-52) % MCV 82 (80-94) fL MCH 25 L (27-31) pg MCHC 31 (31-36) g/dl RDW 19 H (10.5-15) % Plt Count 445 (150-450) 10^3/ul MPV 8 (7.4-10.4) um3 Neut % (Auto) 71.8 (38-83) % Lymph % (Auto) 13.3 L (25-47) % Dodge % (Auto) 8.5 (1-9) % Eos % (Auto) 4.5 (0-6) % Baso % (Auto) 1.9 (0-2) % Absolute Neuts (auto) 7.1 (1.5-7.7) 10^3/ul Absolute Lymphs (auto) 1.3 (1.0-4.8) 10^3/ul Absolute Monos (auto) 0.8 (0-0.8) 10^3/ul Absolute Eos (auto) 0.4 (0-0.6) 10^3/ul Absolute Basos (auto) 0.2 (0-0.2) 10^3/ul Absolute Nucleated RBC 0.01 10^3/ul Nucleated RBC % 0.1 INR (Anticoag Therapy) 2.62 H (0.89-1.11) APTT 33.8 (26.0-36.3) seconds Patient Temperature ABG pH (7.35-7.45) ABG pCO2 (35-45) mmHg ABG pO2 (80-100) mmHg ABG HCO3 (19-31) mmol/L ABG O2 Saturation (95-98) % ABG Base Excess (-2.0-2.0) Respiration Rate O2 Delivery Device Ventilator Type Vent Mode FiO2 Inspiratory Time PEEP Pressure Support Pressure Control EPAP IPAP BiPAP Sodium 139 (133-145) mmol/L Potassium 4.2 (3.5-5.0) mmol/L Chloride 104 (101-111) mmol/L Carbon Dioxide 27 (22-32) mmol/L Anion Gap 8 (2-11) mmol/L BUN 22 (6-24) mg/dL Creatinine 1.12 (0.67-1.17) mg/dL Est GFR ( Amer) 80.7 (>60) Est GFR (Non-Af Amer) 62.8 (>60) BUN/Creatinine Ratio 19.6 (8-20) Glucose 323 H (70-100) mg/dL Hemoglobin A1c (Less than 6.0) % Lactic Acid (0.5-2.0) mmol/L Calcium 9.0 (8.6-10.3) mg/dL Magnesium 1.9 (1.9-2.7) mg/dL Total Bilirubin 1.00 (0.2-1.0) mg/dL AST 12 L (13-39) U/L ALT 9 (7-52) U/L Alkaline Phosphatase 68 (34-104) U/L Total Creatine Kinase 87 (10-223) U/L CK-MB (CK-2) 9.0 H (0.6-6.3) ng/mL Troponin I 0.05 H* (<0.04) ng/mL C-Reactive Protein 116.60 H (< 5.00) mg/L B-Natriuretic Peptide ( - 100) pg/mL Total Protein 7.2 (6.4-8.9) g/dL Albumin 4.0 (3.2-5.2) g/dL Globulin 3.2 (2-4) g/dL Albumin/Globulin Ratio 1.3 (1-3) Lipase 34 (11.0-82.0) U/L TSH 2.51 (0.34-5.60) mcIU/mL 11/02/16 11/02/16 11/02/16 Range/Units 01:45 01:45 01:45 WBC (3.5-10.8) 10^3/ul RBC (4.0-5.4) 10^6/ul Hgb (14.0-18.0) g/dl Hct (42-52) % MCV (80-94) fL MCH (27-31) pg MCHC (31-36) g/dl RDW (10.5-15) % Plt Count (150-450) 10^3/ul MPV (7.4-10.4) um3 Neut % (Auto) (38-83) % Lymph % (Auto) (25-47) % Dodge % (Auto) (1-9) % Eos % (Auto) (0-6) % Baso % (Auto) (0-2) % Absolute Neuts (auto) (1.5-7.7) 10^3/ul Absolute Lymphs (auto) (1.0-4.8) 10^3/ul Absolute Monos (auto) (0-0.8) 10^3/ul Absolute Eos (auto) (0-0.6) 10^3/ul Absolute Basos (auto) (0-0.2) 10^3/ul Absolute Nucleated RBC 10^3/ul Nucleated RBC % INR (Anticoag Therapy) (0.89-1.11) APTT (26.0-36.3) seconds Patient Temperature ABG pH (7.35-7.45) ABG pCO2 (35-45) mmHg ABG pO2 (80-100) mmHg ABG HCO3 (19-31) mmol/L ABG O2 Saturation (95-98) % ABG Base Excess (-2.0-2.0) Respiration Rate O2 Delivery Device Ventilator Type Vent Mode FiO2 Inspiratory Time PEEP Pressure Support Pressure Control EPAP IPAP BiPAP Sodium (133-145) mmol/L Potassium (3.5-5.0) mmol/L Chloride (101-111) mmol/L Carbon Dioxide (22-32) mmol/L Anion Gap (2-11) mmol/L BUN (6-24) mg/dL Creatinine (0.67-1.17) mg/dL Est GFR ( Amer) (>60) Est GFR (Non-Af Amer) (>60) BUN/Creatinine Ratio (8-20) Glucose (70-100) mg/dL Hemoglobin A1c 6.9 H (Less than 6.0) % Lactic Acid 2.3 H* (0.5-2.0) mmol/L Calcium (8.6-10.3) mg/dL Magnesium (1.9-2.7) mg/dL Total Bilirubin (0.2-1.0) mg/dL AST (13-39) U/L ALT (7-52) U/L Alkaline Phosphatase (34-104) U/L Total Creatine Kinase (10-223) U/L CK-MB (CK-2) (0.6-6.3) ng/mL Troponin I (<0.04) ng/mL C-Reactive Protein (< 5.00) mg/L B-Natriuretic Peptide 411 H ( - 100) pg/mL Total Protein (6.4-8.9) g/dL Albumin (3.2-5.2) g/dL Globulin (2-4) g/dL Albumin/Globulin Ratio (1-3) Lipase (11.0-82.0) U/L TSH (0.34-5.60) mcIU/mL 11/02/16 Range/Units 02:21 WBC (3.5-10.8) 10^3/ul RBC (4.0-5.4) 10^6/ul Hgb (14.0-18.0) g/dl Hct (42-52) % MCV (80-94) fL MCH (27-31) pg MCHC (31-36) g/dl RDW (10.5-15) % Plt Count (150-450) 10^3/ul MPV (7.4-10.4) um3 Neut % (Auto) (38-83) % Lymph % (Auto) (25-47) % Dodge % (Auto) (1-9) % Eos % (Auto) (0-6) % Baso % (Auto) (0-2) % Absolute Neuts (auto) (1.5-7.7) 10^3/ul Absolute Lymphs (auto) (1.0-4.8) 10^3/ul Absolute Monos (auto) (0-0.8) 10^3/ul Absolute Eos (auto) (0-0.6) 10^3/ul Absolute Basos (auto) (0-0.2) 10^3/ul Absolute Nucleated RBC 10^3/ul Nucleated RBC % INR (Anticoag Therapy) (0.89-1.11) APTT (26.0-36.3) seconds Patient Temperature Not Reportable ABG pH 7.36 (7.35-7.45) ABG pCO2 42 (35-45) mmHg ABG pO2 341 H (80-100) mmHg ABG HCO3 23.6 (19-31) mmol/L ABG O2 Saturation 100.0 H (95-98) % ABG Base Excess -1.7 (-2.0-2.0) Respiration Rate Not Reportable O2 Delivery Device Bipap Ventilator Type Not Reportable Vent Mode Not Reportable FiO2 100 Inspiratory Time Not Reportable PEEP Not Reportable Pressure Support Not Reportable Pressure Control Not Reportable EPAP Not Reportable IPAP Not Reportable BiPAP Not Reportable Sodium (133-145) mmol/L Potassium (3.5-5.0) mmol/L Chloride (101-111) mmol/L Carbon Dioxide (22-32) mmol/L Anion Gap (2-11) mmol/L BUN (6-24) mg/dL Creatinine (0.67-1.17) mg/dL Est GFR ( Amer) (>60) Est GFR (Non-Af Amer) (>60) BUN/Creatinine Ratio (8-20) Glucose (70-100) mg/dL Hemoglobin A1c (Less than 6.0) % Lactic Acid (0.5-2.0) mmol/L Calcium (8.6-10.3) mg/dL Magnesium (1.9-2.7) mg/dL Total Bilirubin (0.2-1.0) mg/dL AST (13-39) U/L ALT (7-52) U/L Alkaline Phosphatase (34-104) U/L Total Creatine Kinase (10-223) U/L CK-MB (CK-2) (0.6-6.3) ng/mL Troponin I (<0.04) ng/mL C-Reactive Protein (< 5.00) mg/L B-Natriuretic Peptide ( - 100) pg/mL Total Protein (6.4-8.9) g/dL Albumin (3.2-5.2) g/dL Globulin (2-4) g/dL Albumin/Globulin Ratio (1-3) Lipase (11.0-82.0) U/L TSH (0.34-5.60) mcIU/mL Microbiology and Other Data: Microbiology 11/06/16 20:30 Gram Stain - Final Sputum Expectorated 11/02/16 05:35 Legionella Urinary Antigen - Final Urine Negative Legionella Streptococcus pneumoniae Ag Screen - Final Negative S. pneumo Antigen 11/02/16 05:50 Nasal Screen MRSA (PCR)([place]) - Final Nasal Mrsa Positive 11/02/16 05:50 Influenza Types A,B Antigen ([place]) - Final Nasal Specimen received for Influenza A/B Molecular testing Assess/Plan/Problems-Billing Assessment: - Patient Problems (1) CAP (community acquired pneumonia) Current Visit: Yes Status: Acute Code(s): J18.9 - PNEUMONIA, UNSPECIFIED ORGANISM SNOMED Code(s): 094512632 Comment: He had 3 days IV ceftriaxone, 5 days IV azithromycin. Stable. (2) COPD (chronic obstructive pulmonary disease) Current Visit: No Status: Acute Code(s): J44.9 - CHRONIC OBSTRUCTIVE PULMONARY DISEASE, UNSPECIFIED SNOMED Code(s): 81244030 Comment: Continue albuterol by [facility] PRN. Resume Advair. I spoke to his and she will bring in his inhaler. Change guaifenesin to scheduled bid. Taper prednisone. (3) Pneumothorax Current Visit: Yes Status: Acute Code(s): J93.9 - PNEUMOTHORAX, UNSPECIFIED SNOMED Code(s): 17082641 Comment: Dr. Newton to manage CT. (4) Hyperglycemia Current Visit: Yes Status: Acute Code(s): R73.9 - HYPERGLYCEMIA, UNSPECIFIED SNOMED Code(s): 21045461 Comment: Should improve as prednisone tapered. Note A1C 6.9% 11/02/16. (5) Hypothyroid Current Visit: Yes Status: Acute Code(s): E03.9 - HYPOTHYROIDISM, UNSPECIFIED SNOMED Code(s): 82721645 Comment: Continue home dose levo. Note TSH wnl 11/02/16. (6) PAF (paroxysmal atrial fibrillation) Current Visit: Yes Status: Acute Code(s): I48.0 - PAROXYSMAL ATRIAL FIBRILLATION SNOMED Code(s): 289509047 Comment: Continue rivaroxaban.
--- NOTE | 2016-11-07 09:04 | PN ---
Progress Note - Progress Note Note: Time spent on patient cre over 45 minutes.
[2016-11-07] MEDS: PARoxetine HCL TAB* 10 MG PO SCH (09:13)
[2016-11-07] MEDS: Aspirin Low Dose CHEW TAB* 81 MG PO SCH (09:13)
[2016-11-07] MEDS: Clopidogrel TAB* 75 MG PO SCH (09:13)
[2016-11-07] MEDS: predniSONE TAB* 10 MG PO SCH (09:13)
[2016-11-07] MEDS: Metoprolol Tartrate TAB* 25 MG PO SCH ×2 (09:13→22:02)
[2016-11-07] MEDS: guaiFENesin ER TAB 600 MG PO SCH ×2 (09:15→22:02)
--- NOTE | 2016-11-07 11:41 | PN ---
Progress Note - Progress Note Note: CRITICAL CARE MEDICINE Date: 11/07/16 Time: 1130 CXR today with maybe sliver of residual ptx. chest tube pulled. tegaderm dressing placed. pt and updated in the watchful signs. repeat cxr in am for f/u. remains on O2. Dr. Quesada aware. No charge. Bakari Newton,
--- NOTE | 2016-11-07 13:07 | RAD ---
INDICATION: Follow-up pneumothorax status post chest tube placement COMPARISON: Multiple previous chest x-rays, most recently dated November 05, 2016 TECHNIQUE: Single AP portable view of the chest was obtained. FINDINGS: Image quality is compromised due to the relative inferiority of a portable chest x-ray. Again noted is an 8-Bengali chest tube overlying the right lateral upper lung. There is evidence of a tiny pneumothorax. There is persistent elevation of the left hemidiaphragm with blunting of the left costophrenic angle. IMPRESSION: Evidence of tiny persistent right-sided pneumothorax in the presence of an 8-Bengali chest tube.
[2016-11-07] MEDS: Rivaroxaban TAB(*) 20 MG TAB PO SCH (17:15)
[2016-11-07] MEDS: Famotidine TAB* 20 MG PO SCH (17:17)
[2016-11-07] MEDS: MDI INH SCH (22:38)
[2016-11-07] MEDS: FLUTICAS INH SCH (22:38)
[2016-11-07] MEDS: SALMET INH SCH (22:38)
[2016-11-08] MEDS: Levothyroxine TAB* 100 MCG TAB PO SCH (05:42)
[2016-11-08 05:54] LABS: Hematocrit 31 % (42-52); Hemoglobin 9.8 g/dl (14.0-18.0); Mean Corpuscular HGB Conc 32 g/dl (31-36); Mean Corpuscular Hemoglobin 25 pg (27-31); Mean Corpuscular Volume 80 fL (80-94); Mean Platelet Volume 8 um3 (7.4-10.4); Red Blood Count 3.87 10^6/ul (4.0-5.4); Red Cell Distribution Width 18 % (10.5-15); White Blood Count 8.4 10^3/ul (3.5-10.8)
[2016-11-08 06:15] LABS: BUN/Creatinine Ratio 34.2 (8-20); Calcium 8.7 mg/dL (8.6-10.3); EGFR African American 126.3 (>60); EGFR Non-African American 98.2 (>60); Potassium 4.3 mmol/L (3.5-5.0)
[2016-11-08] MEDS: Insulin REGULAR(*) 1 UNITS UNIT SUBCUT SCH ×2 (07:13→12:37)
[2016-11-08] MEDS: SALMET INH SCH (07:54)
[2016-11-08] MEDS: MDI INH SCH (07:54)
[2016-11-08] MEDS: FLUTICAS INH SCH (07:54)
[2016-11-08] MEDS: Aspirin Low Dose CHEW TAB* 81 MG PO SCH (07:57)
[2016-11-08] MEDS: guaiFENesin ER TAB 600 MG PO SCH (07:57)
[2016-11-08] MEDS: Clopidogrel TAB* 75 MG PO SCH (07:57)
[2016-11-08] MEDS: predniSONE TAB* 10 MG PO SCH (07:57)
[2016-11-08] MEDS: Metoprolol Tartrate TAB* 25 MG PO SCH (07:57)
[2016-11-08] MEDS: PARoxetine HCL TAB* 10 MG PO SCH (07:58)
[2016-11-08 11:54] VITALS: BP 100/54
--- NOTE | 2016-11-08 13:10 | RAD ---
INDICATION: Follow-up pneumothorax after chest tube removal. COMPARISON: Most recent comparison chest x-ray dated November 07, 2016 TECHNIQUE: Single AP portable view of the chest was obtained. FINDINGS: Image quality is compromised due to the relative inferiority of a portable chest x-ray. The heart and mediastinum exhibit normal size and contour. There has been interval removal of the 8-Monegasque right upper chest tube. There is no significant residual pneumothorax. There is a small degree of right costophrenic angle blunting as well as density continue to obscure the left hemidiaphragm and left costophrenic angle. Visualized bones are normal for the patient's age. IMPRESSION: No significant pneumothorax status post chest tube removal. Persistent left greater than right pleural effusions may be present.
--- NOTE | 2016-11-08 13:48 | PN ---
Subjective Date of Service: 11/08/16 Interval History: Pt is feeling well. He states he is ready to go home today. He denies any significant SOB. He states he has walked in the halls without difficulty. He has some cough with a scant amount of sputum. Objective Active Medications: Acetaminophen (Tylenol Tab*) 650 mg PO Q6H PRN PRN Reason: FEVER/PAIN Last Admin: 11/05/16 08:15 Dose: 650 mg Albuterol (Ventolin 2.5 Mg/3 Ml Neb.Maria Luisa*) 2.5 mg INH Q2H PRN PRN Reason: SOB/WHEEZING Last Admin: 11/02/16 04:11 Dose: 2.5 mg Aspirin (Aspirin Low Dose Tab*) 81 mg PO DAILY [facility] Last Admin: 11/08/16 07:57 Dose: 81 mg Clopidogrel Bisulfate (Plavix Tab*) 75 mg PO DAILY [facility] Last Admin: 11/08/16 07:57 Dose: 75 mg Docusate Sodium (Colace Cap*) 200 mg PO BID PRN PRN Reason: CONSTIPATION Famotidine (Pepcid Tab*) 20 mg PO QPM [facility] Last Admin: 11/07/16 17:17 Dose: 20 mg Guaifenesin (Mucinex*) 600 mg PO BID [facility] Last Admin: 11/08/16 07:57 Dose: 600 mg Insulin Human Regular (Insulin Regular(*)) 0 units SUBCUT ACHS [facility] PRN Reason: Protocol Last Admin: 11/08/16 12:37 Dose: Not Given Levothyroxine Sodium (Synthroid Tab*) 100 mcg PO DAILY@0600 [facility] Last Admin: 11/08/16 05:42 Dose: 100 mcg Metoprolol Tartrate (Lopressor Tab*) 25 mg PO BID [facility] Last Admin: 11/08/16 07:57 Dose: 25 mg Ondansetron HCl (Zofran Inj*) 4 mg IV Q6H PRN PRN Reason: NAUSEA Paroxetine HCl (Paxil Tab*) 10 mg PO DAILY [facility] Last Admin: 11/08/16 07:58 Dose: 10 mg Prednisone (Deltasone Tab*) 10 mg PO DAILY [facility] Last Admin: 11/08/16 07:57 Dose: 10 mg Rivaroxaban (Xarelto (*)) 20 mg PO DAILY@1700 [facility] Last Admin: 11/07/16 17:15 Dose: 20 mg Rosuvastatin Calcium (Crestor (Nf)) 5 mg PO MoWeFr@0900 [facility] PRN Reason: Protocol Last Admin: 11/06/16 12:34 Dose: 5 mg Fluticasone/Salmeterol (Advair Hfa 115/21 (Nf)) 1 puff INH BID BRYN PRN Reason: Protocol Last Admin: 11/08/16 07:54 Dose: 1 puff Vital Signs 11/07/16 11/07/16 11/07/16 15:49 16:00 19:53 Temperature 97.8 F 95.1 F Pulse Rate 41 73 Respiratory 19 Rate Blood Pressure 103/63 119/59 (mmHg) O2 Sat by Pulse 98 96 98 Oximetry 11/07/16 11/07/16 11/08/16 22:00 23:46 03:50 Temperature 97.5 F 97.6 F Pulse Rate 81 80 Respiratory 20 18 22 Rate Blood Pressure 131/86 105/85 (mmHg) O2 Sat by Pulse 87 97 Oximetry 11/08/16 11/08/16 11/08/16 05:47 07:56 08:00 Temperature Pulse Rate 82 Respiratory 18 18 Rate Blood Pressure (mmHg) O2 Sat by Pulse 92 94 Oximetry 11/08/16 11/08/16 11/08/16 08:12 08:22 11:47 Temperature 97.6 F 97.2 F Pulse Rate 80 72 Respiratory 13 Rate Blood Pressure 107/64 100/54 (mmHg) O2 Sat by Pulse 100 98 Oximetry Oxygen Devices in Use Now: Nasal Cannula - 81% on RA, 91% on 3L Appearance: Elderly male sitting up on the edge of the bed, NAD Eyes: No Scleral Icterus Ears/Nose/Mouth/Throat: Mucous Membranes Moist Neck: - - voice is raspy but he states that is chronic Respiratory: Symmetrical Chest Expansion and Respiratory Effort, Clear to Auscultation - diminished breath sounds in all lung paz Cardiovascular: NL Sounds; No Murmurs; No JVD, No Edema, - - irregularly irregular, controlled rate Abdominal: NL Sounds; No Tenderness; No Distention Extremities: No Clubbing, Cyanosis Skin: No Rash or Ulcers, No Nodules or Sclerosis Neurological: Alert and Oriented x 3 Result Diagrams: 11/08/16 05:23 11/08/16 05:23 Additional Lab and Data: Lab Results 05/07/2111/02/16 11/02/16 Range/Units 01:45 01:45 01:45 WBC 9.9 (3.5-10.8) 10^3/ul RBC 4.49 (4.0-5.4) 10^6/ul Hgb 11.3 L (14.0-18.0) g/dl Hct 37 L (42-52) % MCV 82 (80-94) fL MCH 25 L (27-31) pg MCHC 31 (31-36) g/dl RDW 19 H (10.5-15) % Plt Count 445 (150-450) 10^3/ul MPV 8 (7.4-10.4) um3 Neut % (Auto) 71.8 (38-83) % Lymph % (Auto) 13.3 L (25-47) % [place] % (Auto) 8.5 (1-9) % Eos % (Auto) 4.5 (0-6) % Baso % (Auto) 1.9 (0-2) % Absolute Neuts (auto) 7.1 (1.5-7.7) 10^3/ul Absolute Lymphs (auto) 1.3 (1.0-4.8) 10^3/ul Absolute Monos (auto) 0.8 (0-0.8) 10^3/ul Absolute Eos (auto) 0.4 (0-0.6) 10^3/ul Absolute Basos (auto) 0.2 (0-0.2) 10^3/ul Absolute Nucleated RBC 0.01 10^3/ul Nucleated RBC % 0.1 INR (Anticoag Therapy) 2.62 H (0.89-1.11) APTT 33.8 (26.0-36.3) seconds Patient Temperature ABG pH (7.35-7.45) ABG pCO2 (35-45) mmHg ABG pO2 (80-100) mmHg ABG HCO3 (19-31) mmol/L ABG O2 Saturation (95-98) % ABG Base Excess (-2.0-2.0) Respiration Rate O2 Delivery Device Ventilator Type Vent Mode FiO2 Inspiratory Time PEEP Pressure Support Pressure Control EPAP IPAP BiPAP Sodium 139 (133-145) mmol/L Potassium 4.2 (3.5-5.0) mmol/L Chloride 104 (101-111) mmol/L Carbon Dioxide 27 (22-32) mmol/L Anion Gap 8 (2-11) mmol/L BUN 22 (6-24) mg/dL Creatinine 1.12 (0.67-1.17) mg/dL Est GFR ( Amer) 80.7 (>60) Est GFR (Non-Af Amer) 62.8 (>60) BUN/Creatinine Ratio 19.6 (8-20) Glucose 323 H (70-100) mg/dL Hemoglobin A1c (Less than 6.0) % Lactic Acid (0.5-2.0) mmol/L Calcium 9.0 (8.6-10.3) mg/dL Magnesium 1.9 (1.9-2.7) mg/dL Total Bilirubin 1.00 (0.2-1.0) mg/dL AST 12 L (13-39) U/L ALT 9 (7-52) U/L Alkaline Phosphatase 68 (34-104) U/L Total Creatine Kinase 87 (10-223) U/L CK-MB (CK-2) 9.0 H (0.6-6.3) ng/mL Troponin I 0.05 H* (<0.04) ng/mL C-Reactive Protein 116.60 H (< 5.00) mg/L B-Natriuretic Peptide ( - 100) pg/mL Total Protein 7.2 (6.4-8.9) g/dL Albumin 4.0 (3.2-5.2) g/dL Globulin 3.2 (2-4) g/dL Albumin/Globulin Ratio 1.3 (1-3) Lipase 34 (11.0-82.0) U/L TSH 2.51 (0.34-5.60) mcIU/mL 11/02/16 11/02/16 11/02/16 Range/Units 01:45 01:45 01:45 WBC (3.5-10.8) 10^3/ul RBC (4.0-5.4) 10^6/ul Hgb (14.0-18.0) g/dl Hct (42-52) % MCV (80-94) fL MCH (27-31) pg MCHC (31-36) g/dl RDW (10.5-15) % Plt Count (150-450) 10^3/ul MPV (7.4-10.4) um3 Neut % (Auto) (38-83) % Lymph % (Auto) (25-47) % [place] % (Auto) (1-9) % Eos % (Auto) (0-6) % Baso % (Auto) (0-2) % Absolute Neuts (auto) (1.5-7.7) 10^3/ul Absolute Lymphs (auto) (1.0-4.8) 10^3/ul Absolute Monos (auto) (0-0.8) 10^3/ul Absolute Eos (auto) (0-0.6) 10^3/ul Absolute Basos (auto) (0-0.2) 10^3/ul Absolute Nucleated RBC 10^3/ul Nucleated RBC % INR (Anticoag Therapy) (0.89-1.11) APTT (26.0-36.3) seconds Patient Temperature ABG pH (7.35-7.45) ABG pCO2 (35-45) mmHg ABG pO2 (80-100) mmHg ABG HCO3 (19-31) mmol/L ABG O2 Saturation (95-98) % ABG Base Excess (-2.0-2.0) Respiration Rate O2 Delivery Device Ventilator Type Vent Mode FiO2 Inspiratory Time PEEP Pressure Support Pressure Control EPAP IPAP BiPAP Sodium (133-145) mmol/L Potassium (3.5-5.0) mmol/L Chloride (101-111) mmol/L Carbon Dioxide (22-32) mmol/L Anion Gap (2-11) mmol/L BUN (6-24) mg/dL Creatinine (0.67-1.17) mg/dL Est GFR ( Amer) (>60) Est GFR (Non-Af Amer) (>60) BUN/Creatinine Ratio (8-20) Glucose (70-100) mg/dL Hemoglobin A1c 6.9 H (Less than 6.0) % Lactic Acid 2.3 H* (0.5-2.0) mmol/L Calcium (8.6-10.3) mg/dL Magnesium (1.9-2.7) mg/dL Total Bilirubin (0.2-1.0) mg/dL AST (13-39) U/L ALT (7-52) U/L Alkaline Phosphatase (34-104) U/L Total Creatine Kinase (10-223) U/L CK-MB (CK-2) (0.6-6.3) ng/mL Troponin I (<0.04) ng/mL C-Reactive Protein (< 5.00) mg/L B-Natriuretic Peptide 411 H ( - 100) pg/mL Total Protein (6.4-8.9) g/dL Albumin (3.2-5.2) g/dL Globulin (2-4) g/dL Albumin/Globulin Ratio (1-3) Lipase (11.0-82.0) U/L TSH (0.34-5.60) mcIU/mL 11/02/16 Range/Units 02:21 WBC (3.5-10.8) 10^3/ul RBC (4.0-5.4) 10^6/ul Hgb (14.0-18.0) g/dl Hct (42-52) % MCV (80-94) fL MCH (27-31) pg MCHC (31-36) g/dl RDW (10.5-15) % Plt Count (150-450) 10^3/ul MPV (7.4-10.4) um3 Neut % (Auto) (38-83) % Lymph % (Auto) (25-47) % [place] % (Auto) (1-9) % Eos % (Auto) (0-6) % Baso % (Auto) (0-2) % Absolute Neuts (auto) (1.5-7.7) 10^3/ul Absolute Lymphs (auto) (1.0-4.8) 10^3/ul Absolute Monos (auto) (0-0.8) 10^3/ul Absolute Eos (auto) (0-0.6) 10^3/ul Absolute Basos (auto) (0-0.2) 10^3/ul Absolute Nucleated RBC 10^3/ul Nucleated RBC % INR (Anticoag Therapy) (0.89-1.11) APTT (26.0-36.3) seconds Patient Temperature Not Reportable ABG pH 7.36 (7.35-7.45) ABG pCO2 42 (35-45) mmHg ABG pO2 341 H (80-100) mmHg ABG HCO3 23.6 (19-31) mmol/L ABG O2 Saturation 100.0 H (95-98) % ABG Base Excess -1.7 (-2.0-2.0) Respiration Rate Not Reportable O2 Delivery Device Bipap Ventilator Type Not Reportable Vent Mode Not Reportable FiO2 100 Inspiratory Time Not Reportable PEEP Not Reportable Pressure Support Not Reportable Pressure Control Not Reportable EPAP Not Reportable IPAP Not Reportable BiPAP Not Reportable Sodium (133-145) mmol/L Potassium (3.5-5.0) mmol/L Chloride (101-111) mmol/L Carbon Dioxide (22-32) mmol/L Anion Gap (2-11) mmol/L BUN (6-24) mg/dL Creatinine (0.67-1.17) mg/dL Est GFR ( Amer) (>60) Est GFR (Non-Af Amer) (>60) BUN/Creatinine Ratio (8-20) Glucose (70-100) mg/dL Hemoglobin A1c (Less than 6.0) % Lactic Acid (0.5-2.0) mmol/L Calcium (8.6-10.3) mg/dL Magnesium (1.9-2.7) mg/dL Total Bilirubin (0.2-1.0) mg/dL AST (13-39) U/L ALT (7-52) U/L Alkaline Phosphatase (34-104) U/L Total Creatine Kinase (10-223) U/L CK-MB (CK-2) (0.6-6.3) ng/mL Troponin I (<0.04) ng/mL C-Reactive Protein (< 5.00) mg/L B-Natriuretic Peptide ( - 100) pg/mL Total Protein (6.4-8.9) g/dL Albumin (3.2-5.2) g/dL Globulin (2-4) g/dL Albumin/Globulin Ratio (1-3) Lipase (11.0-82.0) U/L TSH (0.34-5.60) mcIU/mL Microbiology and Other Data: Microbiology 11/06/16 20:30 Gram Stain - Final Sputum Expectorated 11/02/16 05:35 Legionella Urinary Antigen - Final Urine Negative Legionella Streptococcus pneumoniae Ag Screen - Final Negative S. pneumo Antigen 11/02/16 05:50 Nasal Screen MRSA (PCR)([facility]) - Final Nasal Mrsa Positive 11/02/16 05:50 Influenza Types A,B Antigen ([place]) - Final Nasal Specimen received for Influenza A/B Molecular testing Assess/Plan/Problems-Billing Mr Williamson is an 81 yo M who has a h/o COPD, afib, CAD, type II DM, HTN and h/o laryngeal cancer who presented to the ER wtih c/o SOB and was admitted for septic shock secondary to RML pneumonia. - Patient Problems (1) Pneumothorax Current Visit: Yes Status: Acute Code(s): J93.9 - PNEUMOTHORAX, UNSPECIFIED SNOMED Code(s): 48863174 Comment: Secondary to emphysema and being on PPV. Chest tube was removed yesterday-CXR today does not show any pneumothorax. (2) Septic shock Current Visit: Yes Status: Acute Code(s): A41.9 - SEPSIS, UNSPECIFIED ORGANISM; R65.21 - SEVERE SEPSIS WITH SEPTIC SHOCK SNOMED Code(s): 05714114 Comment: Secondary to community acquirred pneumonia. Resolved. (3) CAP (community acquired pneumonia) Current Visit: Yes Status: Acute Code(s): J18.9 - PNEUMONIA, UNSPECIFIED ORGANISM SNOMED Code(s): 411803098 Comment: The patient had 3 days IV ceftriaxone and 5 days IV azithromycin. His respiratory status is stable. No fevers and WBC count is normal. Will continue to taper prednisone. (4) NSTEMI (non-ST elevated myocardial infarction) Current Visit: Yes Status: Acute Code(s): I21.4 - NON-ST ELEVATION (NSTEMI) MYOCARDIAL INFARCTION SNOMED Code(s): 588321106 Comment: Type II NSTEMI-demand mediated. No further work up has been done at this time. He will need to follow up with Dr. Munoz as an outpatient for further evaluation. (5) COPD (chronic obstructive pulmonary disease) Current Visit: Yes Status: Acute Code(s): J44.9 - CHRONIC OBSTRUCTIVE PULMONARY DISEASE, UNSPECIFIED SNOMED Code(s): 41315474 Comment: Continue advair and prn albuterol. Taper prednisone. (6) PAF (paroxysmal atrial fibrillation) Current Visit: Yes Status: Acute Code(s): I48.0 - PAROXYSMAL ATRIAL FIBRILLATION SNOMED Code(s): 878576255 Comment: Rate is controlled. Continue rivaroxaban. (7) Hyperglycemia Current Visit: Yes Status: Acute Code(s): R73.9 - HYPERGLYCEMIA, UNSPECIFIED SNOMED Code(s): 97786178 Comment: The patient is not on any therapy as an outpatient for DM. I will ask that he follow up with his PCP to discuss the need to be on a hypoglycemic. (8) Hypothyroid Current Visit: Yes Status: Acute Code(s): E03.9 - HYPOTHYROIDISM, UNSPECIFIED SNOMED Code(s): 34823603 Comment: Continue home dose of synthroid. (9) Afib Current Visit: No Status: Acute Code(s): I48.91 - UNSPECIFIED ATRIAL FIBRILLATION SNOMED Code(s): 01348074 Comment: Continue xarelto and metoprolol (10) HTN (hypertension) Current Visit: Yes Status: Acute Code(s): I10 - ESSENTIAL (PRIMARY) HYPERTENSION SNOMED Code(s): 26602628 Comment: BP is under excellent control on current regimen. (11) CAD (coronary artery disease) Current Visit: Yes Status: Acute Code(s): I25.10 - ATHSCL HEART DISEASE OF [place] CORONARY ARTERY W/O ANG PCTRS SNOMED Code(s): 63149403 Comment: Continue metoprolol, ASA and plavix. He has not been able to tolerate statins. (12) DVT prophylaxis Current Visit: Yes Status: Acute Code(s): NIY8165 - SNOMED Code(s): 270223455 Comment: xarelto (13) Full code status Current Visit: Yes Status: Acute Code(s): Z78.9 - OTHER SPECIFIED HEALTH STATUS SNOMED Code(s): 620657059
--- NOTE | 2016-11-08 22:50 | DS ---
DISCHARGE SUMMARY: DATE OF ADMISSION: 11/02/16 DATE OF DISCHARGE: 11/08/16 PRIMARY CARE PROVIDER: Dr. Flores. APN: Dr. Munoz. PRINCIPAL DIAGNOSES: 1. Septic shock secondary to community-acquired pneumonia - sputum grew Staph aureus, identified on the day of discharge. 2. Iatrogenic pneumothorax following initiation of positive pressure ventilation. SECONDARY DIAGNOSES: 1. Paroxysmal atrial fibrillation. 2. Coronary artery disease. 3. Ischemic cardiomyopathy. 4. Chronic obstructive pulmonary disease. 5. Type 2 diabetes. 6. Hypertension. 7. History of anticardiolipin antibody. 8. History of laryngeal carcinoma status post radiation. DISCHARGE MEDICATIONS: 1. Advair 115/21 one puff inhaled twice daily. 2. Coenzyme Q10, 100 mg p.o. daily. 3. Plavix 75 mg p.o. daily. 4. Albuterol 2 puffs inhaled q.4 hours p.r.n. shortness of breath. 5. Albuterol 1 neb inhaled at bedtime p.r.n. shortness of breath. 6. Protonix 40 mg p.o. daily. 7. Synthroid 100 mcg p.o. daily. 8. Xarelto 20 mg p.o. daily. 9. Guaifenesin ER 600 mg p.o. b.i.d. 10. Crestor 5 mg p.o. Wednesday, Wednesday, Wednesday. 11. Prednisone 10 mg p.o. daily x2 days and 5 mg p.o. daily x2 days. 12. Bactrim DS 1 tab p.o. b.i.d. x7 days. 13. Paxil 10 mg p.o. daily. 14. Metoprolol tartrate 25 mg p.o. b.i.d. 15. Aspirin 81 mg p.o. daily. HOSPITAL COURSE: Mr. Williamson is an 81-year-old male with a known history of COPD who uses O2 nocturnally, who presents to the emergency room with complaints of shortness of breath. The patient was admitted for septic shock secondary to pneumonia. The patient ultimately required intubation after he failed BiPAP. The patient following the initiation of mechanical ventilation developed a right pneumothorax. A chest tube was ultimately placed. The patient did actually quite well while mechanically ventilated. He was treated with 3 days of IV ceftriaxone and 5 days of IV azithromycin. He was ultimately able to be liberated from the ventilator. His septic shock resolved. The patient was transferred to the medical floor on 11/07/16. At that point, the patient was feeling much improved. He had his chest tube removed on the morning of . On 11/08/16, on the day of discharge, the patient was feeling quite well. He had been up and ambulating in the hallway without any difficulty. He denied any shortness of breath. It did become clear that the patient was going to require 3 L of oxygen continuously while awake and based on the nocturnal desaturation study that revealed him to be markedly hypoxic on 4 L of oxygen while sleeping, it was recommended he increase this to 6 L while sleeping. The patient again was treated with ceftriaxone for 3 days and azithromycin for 5 days. His sputum from 11/06/16 ultimately grew out Staph aureus, which was reported on 11/08/16. I sent a prescription for Bactrim DS one tab p.o. b.i.d. x7 days, so the patient effectively treats the Staph aureus that grew from his sputum. The patient will need to start this tomorrow morning and I will contact him with the recommendation to go to the pharmacy to picker the antibiotics. In the meantime, the patient should re-present to the emergency room if he has any fevers, chills, worsening shortness of breath, or any other concerning symptoms. The patient did have a chest x-ray on the day of discharge that revealed no evidence of pneumothorax status post removal of the chest tube. In terms of the patient's chronic medical conditions, he has been maintained on his usual home medication regimen. The patient will need to follow up with his primary care provider early this week and with Dr. Munoz in the near future. FOLLOWUP CONCERNS: The patient is being discharged to home today, 11/08/16. ACTIVITY: Activity level is as tolerated. DIET: Consistent carbohydrate. CONDITION ON DISCHARGE: Stable. TIME SPENT: Thirty five minutes was spent discharging this patient. CC: Dr. Flores; Dr. Munoz* [id number]/[facility] #: [id number] MTDD
== END 2016-11-08 16:30 | disposition home or self-care (01) | DRG 871 ==
LOC: ED 01:30 → ICU 02:29 → SSU 11-06 14:25
PROVIDERS: ADMIT Hospitalist; ATTEND Hospitalist
PROC: 0BH17EZ Insertion of Endotracheal Airway into Trachea, Via Natural or Artificial Opening (ICD-10-PCS; principal; 2016-11-02)
PROC: 0DH67UZ Insertion of Feeding Device into Stomach, Via Natural or Artificial Opening (ICD-10-PCS; 2016-11-02)
PROC: 5A1945Z Respiratory Ventilation, 24-96 Consecutive Hours (ICD-10-PCS; 2016-11-02)
PROC: 0W9930Z Drainage of Right Pleural Cavity with Drainage Device, Percutaneous Approach (ICD-10-PCS; 2016-11-02)
PROC: 5A09357 Assistance with Respiratory Ventilation, Less than 24 Consecutive Hours, Continuous Positive Airway Pressure (ICD-10-PCS; 2016-11-02)
PROC: 06HM33Z Insertion of Infusion Device into Right Femoral Vein, Percutaneous Approach (ICD-10-PCS; 2016-11-02)
PROC: 0WP9X0Z Removal of Drainage Device from Right Pleural Cavity, External Approach (ICD-10-PCS; 2016-11-07)
DX: A41.9 Sepsis, unspecified organism (principal); I21.4 Non-ST elevation (NSTEMI) myocardial infarction; J96.01 Acute respiratory failure with hypoxia; J44.0 Chronic obstructive pulmonary disease with (acute) lower respiratory infection; R65.21 Severe sepsis with septic shock; I11.0 Hypertensive heart disease with heart failure; J18.9 Pneumonia, unspecified organism; E11.65 Type 2 diabetes mellitus with hyperglycemia; I50.9 Heart failure, unspecified; J44.1 Chronic obstructive pulmonary disease with (acute) exacerbation; E27.40 Unspecified adrenocortical insufficiency; J93.83 Other pneumothorax; I48.0 Paroxysmal atrial fibrillation; I25.10 Atherosclerotic heart disease of native coronary artery without angina pectoris; E78.00 Pure hypercholesterolemia, unspecified; E03.9 Hypothyroidism, unspecified; G47.33 Obstructive sleep apnea (adult) (pediatric); I25.5 Ischemic cardiomyopathy; B95.61 Methicillin susceptible Staphylococcus aureus infection as the cause of diseases classified elsewhere; Z85.118 Personal history of other malignant neoplasm of bronchus and lung; Z88.0 Allergy status to penicillin; Z88.8 Allergy status to other drugs, medicaments and biological substances; Z91.011 Allergy to milk products; Z92.3 Personal history of irradiation; Z86.19 Personal history of other infectious and parasitic diseases; Z84.89 Family history of other specified conditions; Z87.891 Personal history of nicotine dependence; Z95.5 Presence of coronary angioplasty implant and graft; Z85.21 Personal history of malignant neoplasm of larynx; Z83.3 Family history of diabetes mellitus; Z82.49 Family history of ischemic heart disease and other diseases of the circulatory system; Z79.82 Long term (current) use of aspirin; Z79.01 Long term (current) use of anticoagulants; Z79.02 Long term (current) use of antithrombotics/antiplatelets; Z99.81 Dependence on supplemental oxygen; I45.6 Pre-excitation syndrome
CPT/HCPCS: 36415; 36600; 71010; 80048; 80053; 81003; 81015; 82550; 82553; 82803; 83036; 83605; 83690; 83735; 83880; 84100; 84443; 84484; 85025; 85027; 85610; 85730; 86140; 87070; 87077; 87186; 87205; 87502; 87641; 87899; 93005; 93226; 94003; 94640; 94660; 94760; 94762; A9270-GY; J0456; J0696; J1720; J1940; J2704; J2930; J3010; J7512

== ENCOUNTER 2016-11-11 16:44 | Inpatient (IN) | payer MEDICARE, OTHER ==
[2016-11-11 17:06] LABS: Hematocrit 37 % (42-52); Mean Corpuscular HGB Conc 30 g/dl (31-36); Mean Corpuscular Hemoglobin 25 pg (27-31); Mean Corpuscular Volume 85 fL (80-94); Mean Platelet Volume 8 um3 (7.4-10.4); Red Blood Count 4.33 10^6/ul (4.0-5.4); Red Cell Distribution Width 18 % (10.5-15); White Blood Count 12.8 10^3/ul (3.5-10.8)
[2016-11-11 17:18] LABS: Albumin 3.8 g/dL (3.2-5.2); C Reactive Protein 22.58 mg/L (< 5.00); Calcium 8.9 mg/dL (8.6-10.3); EGFR African American 67.4 (>60); EGFR Non-African American 52.4 (>60); Globulin 2.8 g/dL (2-4); Magnesium 2.2 mg/dL (1.9-2.7); Potassium 4.4 mmol/L (3.5-5.0); Total Bilirubin 0.8 mg/dL (0.2-1.0); Total Protein 6.6 g/dL (6.4-8.9)
[2016-11-11 17:20] LABS: Add Diff/Slide Review? Slide Review Added; Comments Flag Yes; Troponin I 0.01 ng/mL (<0.04)
[2016-11-11 17:41] LABS: Hypochromasia 2+; Polychromasia 1+
[2016-11-11 17:42] LABS: Burr Cells 1+; Macrocytosis 1+
[2016-11-11 17:58] LABS: PCO2 Arterial 84 mmHg (35-45)
[2016-11-11 18:06] LABS: TSH (Thyroid Stimulating Horm) 2.58 mcIU/mL (0.34-5.60)
--- NOTE | 2016-11-11 18:06 | RAD ---
Indication: Shortness of breath. Recent RIGHT chest tube removal. History of chronic obstructive pulmonary disease. Comparison: November 08, 2016 Technique: Upright AP 1656 hours Report: Elevated lung volumes with coarse interstitial markings without gross change. Moderately large RIGHT pneumothorax with the pleural line displaced up to 3.8 cm from the lateral parietal pleura at the upper lung zone. Associated leftward mediastinal shift. Mild cardiomegaly. No gross abnormality of the central pulmonary vasculature. IMPRESSION: Moderately large RIGHT pneumothorax with leftward mediastinal shift. Stigmata of advanced chronic obstructive pulmonary disease. Results discussed with Dr. Church 11/11/2016 6:00 PM EDT
--- NOTE | 2016-11-11 18:29 | RAD ---
Indication: Respiratory distress. RIGHT pneumothorax with leftward mediastinal shift on 1656 hours exam of the same date. Comparison: 1656 hours exam of the same date. Technique: Sitting AP and lateral chest views. Report: No conspicuous chest tube. No significant change in moderately large RIGHT pneumothorax with the pleural line displaced 3.6 cm from the lateral parietal pleura at the upper lung zone. Associated partial atelectasis of the RIGHT lung and mild leftward mediastinal shift. Small to moderate bilateral pleural effusions. Mild cardiomegaly. No gross abnormality of the central pulmonary vasculature. IMPRESSION: Unchanged moderately large RIGHT pneumothorax with mild leftward mediastinal shift.
[2016-11-11] MEDS ORDERED: Ipratropium 0.5MG/2.5ML NEB* 0.5 MG/2.5 ML NEB.SOLN INH PRN (18:41)
[2016-11-11] MEDS ORDERED: Albuterol 2.5 MG/3 ML NEB.SOL* (0.083%) INH PRN (18:41)
[2016-11-11] MEDS ORDERED: NS 0.9% 1000 ML* 1,000 ML IV ONE ×2 (18:46→18:51)
[2016-11-11] MEDS ORDERED: Vancomycin(*) 1,250 MG in NS 0.9% 250 ML* 250 ML IVPB ONE (19:00)
[2016-11-11] MEDS ORDERED: Rosuvastatin (NF) 5 MG TAB PO SCH (19:00)
[2016-11-11] MEDS ORDERED: Cefepime(*) 1 GM in NS 0.9% 50 ML* 50 ML IVPB SCH (19:00)
[2016-11-11] MEDS ORDERED: Vancomycin per Pharmacy* NOTE FOLLOW UP PRN (19:06)
[2016-11-11 19:07] LABS: EPAP 5; FIO2 80; IPAP 10
[2016-11-11 19:12] LABS: PCO2 Arterial 62 mmHg (35-45)
[2016-11-11] MEDS ORDERED: NS 0.9% 50 ML* 50 ML ONE (19:16)
--- NOTE | 2016-11-11 19:19 | ED ---
Navi Miller Alok, scribed for Efraín Crisostomo MD on 11/11/16 at 1713 . Shortness of Breath - HPI Summary HPI Summary: 81M presents to the ED BIBA after sudden onset of SOB and cyanosis while in the bathroom minutes ago. Pt was last here 3 days ago for SOB. During his hospitalization, he required intubation and ventilation and subsequently developed a right pneumothorax. This was treated with A Heimlich valve and improved. Following that he was extubated and tolerated BiPap. Since he went home 3 days ago pt has been on 3L O2 in the day and 6L O2 at night. Pt takes Xarelto. PMHx includes COPD and A Fib. PSHx includes cardiac stent one year ago. Pt is a former tobacco smoker with h/o throat CA. Full Code called at 1645. - History of Current Complaint Chief Complaint: EDShortnessOfBreath Hx Obtained From: Family/Humidifier Operator Onset/Duration: Sudden Onset, Lasting Minutes, Still Present Timing: Constant Current Severity: Moderate - Allergy/Home Medications Allergies/Adverse Reactions: Allergies Allergy/AdvReac Type Severity Reaction Status Date / Time Milk Protein Extract Allergy Unknown Rash Verified 09/10/15 08:55 [From Spiriva] Tiotropium [From Spiriva] Allergy Unknown Rash Verified 09/10/15 08:55 Atorvastatin [From Lipitor] AdvReac Unknown Muscle Ache Verified 09/10/15 08:55 Ezetimibe [From Zetia] AdvReac Unknown Muscle Ache Verified 09/10/15 08:55 Rosuvastatin [From Crestor] AdvReac Unknown Muscle Ache Verified 09/10/15 08:55 Simvastatin [From Zocor] AdvReac Unknown Muscle Ache Verified 09/10/15 08:55 Penicillins [PCN] AdvReac See Comment Verified 09/10/15 09:44 Home Medications: Home Medications Albuterol 2.5MG/3ML (0.083%)* [Ventolin 2.5 MG/3 ML NEB.KADY*] 2.5 mg INH .Q4-6H PRN 11/11/16 [History Confirmed 11/11/16] Clopidogrel TAB* [Plavix TAB*] 75 mg PO DAILY 11/11/16 [History Confirmed ] Furosemide TAB* [Lasix TAB*] 20 mg PO DAILY 11/11/16 [History Confirmed 11/11/16 ] Ipratropium 0.5MG/2.5ML NEB* [Atrovent 0.5 MG NEB.KADY*] 0.5 mg INH BID PRN 11/11 [History Confirmed 11/11/16] LevoCETirizine TAB (NF) [Xyzal TAB (NF)] 5 mg PO DAILY 11/11/16 [History Confirmed 11/11/16] Mometasone/Formoter 100/5 MDI* [Dulera 100/5 MDI*] 2 puff INH BID 11/11/16 [ History Confirmed 11/11/16] Multiple Vitamins W/ Minerals [Eye Vitamins & Minerals] 1 tab PO BID 11/11/16 [ History Confirmed 11/11/16] Rosuvastatin (NF) [Crestor (NF)] 5 mg PO MOWEFR 11/11/16 [History Confirmed 04/20] guaiFENesin ER TAB [Mucinex*] 600 mg PO BID PRN 11/11/16 [History Confirmed 04/20] PMH/Surg Hx/FS Hx/Imm Hx Endocrine/Hematology History: Reports: Hx Diabetes, Hx Thyroid Disease Cardiovascular History: Reports: Hx Angina, Hx Congestive Heart Failure, Hx Coronary Artery Disease, Hx Hypercholesterolemia, Hx Hypertension, Other Cardiovascular Problems/Disorders - cardiomyopathy, CAD/ IDDM/ CARDIAC CATH W/ STENT Denies: Hx Myocardial Infarction, Hx Valvular Heart Disease Respiratory History: Reports: Hx Asthma, Hx Chronic Obstructive Pulmonary Disease (COPD), Hx Lung Cancer History: Denies: Hx Renal Disease Musculoskeletal History: Reports: Hx Arthritis Sensory History: Reports: Hx Contacts or Glasses Denies: Hx Hearing Aid Opthamlomology History: Reports: Hx Contacts or Glasses Neurological History: Denies: Hx Dementia - Cancer History Cancer Type, Location and Year: throat 2004 Hx Chemotherapy: No Hx Radiation Therapy: Yes - Surgical History Surgery Procedure, Year, and Place: throat for throat cancer 2004 Hx Anesthesia Reactions: No Infectious Disease History: Yes Infectious Disease History: Reports: Hx Hepatitis - HEPATITIS A Denies: Hx Clostridium Difficile, Hx Human Immunodeficiency Virus (HIV), Hx of Known/Suspected MRSA, Hx Shingles, Hx Tuberculosis, Hx Known/Suspected VRE, Hx Known/Suspected VRSA, History Other Infectious Disease, Traveled Outside the [place] in Last 30 Days - Family History Known Family History: Positive: Other - Mother from rheumatic fever. - Social History Occupation: Retired Lives: With Family Alcohol Use: Rare Alcohol Amount: occas glass of wine Substance Use Type: Reports: None Hx Tobacco Use: Yes Smoking Status (MU): Former Smoker Type: Cigarettes Have You Smoked in the Last Year: No Review of Systems Positive: Skin Diaphoresis, Other - cyanosis. Negative: Fever Positive: Shortness Of Breath All Other Systems Reviewed And Are Negative: Yes Physical Exam Triage Information Reviewed: Yes Vital Signs On Initial Exam: Initial Vitals Temp Pulse Resp BP Pulse Ox 97.1 F 108 32 150/84 89 11/11/16 16:57 11/11/16 16:57 11/11/16 16:57 11/11/16 16:57 11/11/16 16:57 Vital Signs Reviewed: Yes Appearance: Positive: Well-Appearing Skin: Positive: Diaphoretic Head/Face: Positive: Normal Head/Face Inspection Eyes: Positive: Normal ENT: Positive: Normal ENT inspection Neck: Positive: Supple, Nontender Respiratory/Lung Sounds: Positive: Other - No breath sounds right. Using accesory muscles to breath. Tachpnic. Trachea Midline Cardiovascular: Positive: Tachycardia Abdomen Description: Positive: Nontender, Soft Bowel Sounds: Positive: Present Musculoskeletal: Positive: Normal Neurological: Positive: Normal Psychiatric: Positive: Normal, Affect/Mood Appropriate Diagnostics - Vital Signs Vital Signs Temp Pulse Resp BP Pulse Ox 11/11/16 16:57 97.1 F 108 32 150/84 89 - Laboratory Lab Results: Lab Results 11/11/16 11/11/16 11/11/16 Range/Units 16:53 16:53 16:53 WBC 12.8 H (3.5-10.8) 10^3/ul RBC 4.33 (4.0-5.4) 10^6/ul Hgb 11.0 L (14.0-18.0) g/dl Hct 37 L (42-52) % MCV 85 (80-94) fL MCH 25 L (27-31) pg MCHC 30 L (31-36) g/dl RDW 18 H (10.5-15) % Plt Count 546 H D (150-450) 10^3/ul MPV 8 (7.4-10.4) um3 Neut % (Auto) 73.1 (38-83) % Lymph % (Auto) 18.8 L (25-47) % [place] % (Auto) 6.5 (1-9) % Eos % (Auto) 1.0 (0-6) % Baso % (Auto) 0.6 (0-2) % Absolute Neuts (auto) 9.3 H (1.5-7.7) 10^3/ul Absolute Lymphs (auto) 2.4 (1.0-4.8) 10^3/ul Absolute Monos (auto) 0.8 (0-0.8) 10^3/ul Absolute Eos (auto) 0.1 (0-0.6) 10^3/ul Absolute Basos (auto) 0.1 (0-0.2) 10^3/ul Absolute Nucleated RBC 0.02 10^3/ul Nucleated RBC % 0.1 Normal RBC Morphology Not Reportable Polychromasia 1+ Hypochromasia 2+ Macrocytosis 1+ Daisy Cells 1+ INR (Anticoag Therapy) 1.33 H (0.89-1.11) APTT 26.5 (26.0-36.3) seconds Patient Temperature ABG pH (7.35-7.45) ABG pCO2 (35-45) mmHg ABG pO2 (80-100) mmHg ABG HCO3 (19-31) mmol/L ABG O2 Saturation (95-98) % ABG Base Excess (-2.0-2.0) Respiration Rate O2 Delivery Device Ventilator Type Vent Mode FiO2 Inspiratory Time PEEP Pressure Support Pressure Control EPAP IPAP BiPAP Sodium 139 (133-145) mmol/L Potassium 4.4 (3.5-5.0) mmol/L Chloride 99 L (101-111) mmol/L Carbon Dioxide 27 (22-32) mmol/L Anion Gap 13 H (2-11) mmol/L BUN 21 (6-24) mg/dL Creatinine 1.31 H (0.67-1.17) mg/dL Est GFR ( Amer) 67.4 (>60) Est GFR (Non-Af Amer) 52.4 (>60) BUN/Creatinine Ratio 16.0 (8-20) Glucose 315 H (70-100) mg/dL Lactic Acid (0.5-2.0) mmol/L Calcium 8.9 (8.6-10.3) mg/dL Magnesium 2.2 (1.9-2.7) mg/dL Total Bilirubin 0.80 (0.2-1.0) mg/dL AST 39 (13-39) U/L ALT 26 (7-52) U/L Alkaline Phosphatase 68 (34-104) U/L Total Creatine Kinase 115 (10-223) U/L CK-MB (CK-2) 8.6 H (0.6-6.3) ng/mL Troponin I 0.01 (<0.04) ng/mL C-Reactive Protein 22.58 H (< 5.00) mg/L B-Natriuretic Peptide ( - 100) pg/mL Total Protein 6.6 (6.4-8.9) g/dL Albumin 3.8 (3.2-5.2) g/dL Globulin 2.8 (2-4) g/dL Albumin/Globulin Ratio 1.4 (1-3) Lipase 49 (11.0-82.0) U/L TSH 2.58 (0.34-5.60) mcIU/mL 11/11/16 11/11/16 11/11/16 Range/Units 16:53 16:53 17:40 WBC (3.5-10.8) 10^3/ul RBC (4.0-5.4) 10^6/ul Hgb (14.0-18.0) g/dl Hct (42-52) % MCV (80-94) fL MCH (27-31) pg MCHC (31-36) g/dl RDW (10.5-15) % Plt Count (150-450) 10^3/ul MPV (7.4-10.4) um3 Neut % (Auto) (38-83) % Lymph % (Auto) (25-47) % [place] % (Auto) (1-9) % Eos % (Auto) (0-6) % Baso % (Auto) (0-2) % Absolute Neuts (auto) (1.5-7.7) 10^3/ul Absolute Lymphs (auto) (1.0-4.8) 10^3/ul Absolute Monos (auto) (0-0.8) 10^3/ul Absolute Eos (auto) (0-0.6) 10^3/ul Absolute Basos (auto) (0-0.2) 10^3/ul Absolute Nucleated RBC 10^3/ul Nucleated RBC % Normal RBC Morphology Polychromasia Hypochromasia Macrocytosis Daisy Cells INR (Anticoag Therapy) (0.89-1.11) APTT (26.0-36.3) seconds Patient Temperature ABG pH 7.13 L* (7.35-7.45) ABG pCO2 84 H* (35-45) mmHg ABG pO2 229 H (80-100) mmHg ABG HCO3 23.0 (19-31) mmol/L ABG O2 Saturation 100.3 H (95-98) % ABG Base Excess -2.5 L (-2.0-2.0) Respiration Rate O2 Delivery Device Ventilator Type Vent Mode FiO2 Inspiratory Time PEEP Pressure Support Pressure Control EPAP IPAP BiPAP Sodium (133-145) mmol/L Potassium (3.5-5.0) mmol/L Chloride (101-111) mmol/L Carbon Dioxide (22-32) mmol/L Anion Gap (2-11) mmol/L BUN (6-24) mg/dL Creatinine (0.67-1.17) mg/dL Est GFR ( Amer) (>60) Est GFR (Non-Af Amer) (>60) BUN/Creatinine Ratio (8-20) Glucose (70-100) mg/dL Lactic Acid 7.9 H* (0.5-2.0) mmol/L Calcium (8.6-10.3) mg/dL Magnesium (1.9-2.7) mg/dL Total Bilirubin (0.2-1.0) mg/dL AST (13-39) U/L ALT (7-52) U/L Alkaline Phosphatase (34-104) U/L Total Creatine Kinase (10-223) U/L CK-MB (CK-2) (0.6-6.3) ng/mL Troponin I (<0.04) ng/mL C-Reactive Protein (< 5.00) mg/L B-Natriuretic Peptide 1503 H ( - 100) pg/mL Total Protein (6.4-8.9) g/dL Albumin (3.2-5.2) g/dL Globulin (2-4) g/dL Albumin/Globulin Ratio (1-3) Lipase (11.0-82.0) U/L TSH (0.34-5.60) mcIU/mL /04/20 Range/Units 19:01 WBC (3.5-10.8) 10^3/ul RBC (4.0-5.4) 10^6/ul Hgb (14.0-18.0) g/dl Hct (42-52) % MCV (80-94) fL MCH (27-31) pg MCHC (31-36) g/dl RDW (10.5-15) % Plt Count (150-450) 10^3/ul MPV (7.4-10.4) um3 Neut % (Auto) (38-83) % Lymph % (Auto) (25-47) % [place] % (Auto) (1-9) % Eos % (Auto) (0-6) % Baso % (Auto) (0-2) % Absolute Neuts (auto) (1.5-7.7) 10^3/ul Absolute Lymphs (auto) (1.0-4.8) 10^3/ul Absolute Monos (auto) (0-0.8) 10^3/ul Absolute Eos (auto) (0-0.6) 10^3/ul Absolute Basos (auto) (0-0.2) 10^3/ul Absolute Nucleated RBC 10^3/ul Nucleated RBC % Normal RBC Morphology Polychromasia Hypochromasia Macrocytosis Daisy Cells INR (Anticoag Therapy) (0.89-1.11) APTT (26.0-36.3) seconds Patient Temperature Not Reportable ABG pH Pending (7.35-7.45) ABG pCO2 Pending (35-45) mmHg ABG pO2 Pending (80-100) mmHg ABG HCO3 Pending (19-31) mmol/L ABG O2 Saturation Pending (95-98) % ABG Base Excess Pending (-2.0-2.0) Respiration Rate Not Reportable O2 Delivery Device Bipap Ventilator Type Not Reportable Vent Mode Not Reportable FiO2 80 Inspiratory Time Not Reportable PEEP Not Reportable Pressure Support Not Reportable Pressure Control Not Reportable EPAP 5 IPAP 10 BiPAP Not Reportable Sodium (133-145) mmol/L Potassium (3.5-5.0) mmol/L Chloride (101-111) mmol/L Carbon Dioxide (22-32) mmol/L Anion Gap (2-11) mmol/L BUN (6-24) mg/dL Creatinine (0.67-1.17) mg/dL Est GFR ( Amer) (>60) Est GFR (Non-Af Amer) (>60) BUN/Creatinine Ratio (8-20) Glucose (70-100) mg/dL Lactic Acid (0.5-2.0) mmol/L Calcium (8.6-10.3) mg/dL Magnesium (1.9-2.7) mg/dL Total Bilirubin (0.2-1.0) mg/dL AST (13-39) U/L ALT (7-52) U/L Alkaline Phosphatase (34-104) U/L Total Creatine Kinase (10-223) U/L CK-MB (CK-2) (0.6-6.3) ng/mL Troponin I (<0.04) ng/mL C-Reactive Protein (< 5.00) mg/L B-Natriuretic Peptide ( - 100) pg/mL Total Protein (6.4-8.9) g/dL Albumin (3.2-5.2) g/dL Globulin (2-4) g/dL Albumin/Globulin Ratio (1-3) Lipase (11.0-82.0) U/L TSH (0.34-5.60) mcIU/mL Result Diagrams: 11/11/16 16:53 11/11/16 16:53 Lab Statement: Any lab studies that have been ordered have been reviewed, and results considered in the medical decision making process. - Radiology CXR Xray Interpretation: Positive (See Comments) - IMPRESSION: Moderately large RIGHT pneumothorax with leftward mediastinal shift. Stigmata of advanced chronic obstructive pulmonary disease. Radiology Interpretation Completed By: Radiologist CXR 17:17 Xray Interpretation: Positive (See Comments) - IMPRESSION: Unchanged moderately large RIGHT pneumothorax with mild leftward mediastinal shift. Radiology Interpretation Completed By: Radiologist - EKG 1701 Cardiac Rate: Tachycardia - Borderline Tachycardia. 93 bpm EKG Rhythm: Atrial Fibrillation ST Segment: Non-Specific - changes Course/Dx - Course Course Of Treatment: Mr. Williamson came in in extremis with accessory muscle use and retractions. He was not moving the right side of his chest well and with no breath sounds on that side. BiPap at 10/[address] Mann came and put in another Heimlich valve. He was admitted to the ICU. - Diagnoses Provider Diagnoses: Pneumothorax on right, Respiratory insufficiency - Physician Notifications Discussed Care of Patient With: Dr. Mann (Surgery) @ 1656 - Discussed pt condition, request heimlich valve. Dr. Newton (ICU) @ 1710 - no responce, already left building, will call hospitalist. Dr. Mann (Surgery) @ 1714 - request chest PA & LAT. Dr. Kahn (Hospitalist) @ 1802 - discussed pt respiratory failure and need for admit. Dr. Tanner (Hospitalist) @ 1848 - Will admit pt - Critical Care Time Critical Care Time: 30-74 min Discharge - Discharge Plan Condition: Fair Disposition: ADMITTED TO [facility] The documentation as recorded by the Navi germain Alok accurately reflects the service I personally performed and the decisions made by me, Efraín Crisostomo MD.
--- NOTE | 2016-11-11 19:33 | RAD ---
Indication: RIGHT pneumothorax. Post chest tube placement. Comparison: 1809 hours of the same date. Technique: Upright AP 1850 hours Report: Complete radiographic resolution of RIGHT pneumothorax post apical Heimlich valve chest tube placement. Associated interval partial resolution of RIGHT lung atelectasis. Decreased leftward mediastinal shift. Bilateral prominent interstitial markings. Small RIGHT and moderate LEFT pleural effusions. Mild cardiomegaly. Unremarkable central pulmonary vasculature. IMPRESSION: Complete radiographic resolution of RIGHT pneumothorax post apical Heimlich valve chest tube placement.
[2016-11-11 21:00] LABS: EPAP 5; FIO2 60; IPAP 14; PCO2 Arterial 60 mmHg (35-45)
[2016-11-11] MEDS ORDERED: Metoprolol Tartrate TAB* 25 MG PO SCH (21:00)
[2016-11-11 21:43] LABS: Urine Bacteria 1+ (Absent); Urine Bilirubin Negative (Negative); Urine Glucose Negative (Negative); Urine Nitrite Negative (Negative)
--- NOTE | 2016-11-11 23:32 | HP ---
CC: Dr. Dayne Flores HISTORY AND PHYSICAL: DATE OF ADMISSION: 11/11/16 PRIMARY CARE PHYSICIAN: Dr. Dayne Flores. CHIEF COMPLAINT: Shortness of breath. HISTORY OF PRESENT ILLNESS: Mr. Williamson is an 81-year-old man with a past medical history of hypertension; ischemic cardiomyopathy, with last EF on record 30% to 35%; paroxysmal atrial fibrillation; CAD; COPD, on around-the- clock oxygen; type 2 diabetes; history of laryngeal cancer, status post radiation; history of anticardiolipin antibody; recent admission for septic shock and respiratory failure secondary to community-acquired pneumonia due to MRSA, who presents to the hospital just 3 days after discharge with respiratory symptoms. History obtained mostly from the patient's as the patient was on BiPAP at the time of examination. She reports that since discharge, his breathing has been "okay." He had been ambulating and eating and drinking well over the past 2 days. They did picker and packer prescription for Bactrim that was prescribed by Dr. Abad on discharge and he has been taking it. The patient did seem more fatigued today. He had planned on taking a shower. His states that he went to the bathroom and he was in there for a long time, when she went to check on him, he seemed very short of breath and was turning blue. The patient told his to call their daughter, Delia, who came over and saw the patient and recommended they go in ambulance. He was bought to the emergency department and in the ED, was requiring a significant amount of oxygen. Initial blood gas showed significant respiratory acidosis and a chest x - ray showed recurrence of a right-sided pneumothorax that was read as moderately large. Dr. Mann was consulted and he came to the bedside urgently and placed a Heimlich valve. The patient had a repeat blood gas with improvement. Blood pressures were somewhat erratic when taken in the ED with the systolics reaching the 80s and 70s. The patient seemed to respond to 1 L of IV fluids. PAST MEDICAL HISTORY: Hypertension; ischemic cardiomyopathy with an EF of 35%; COPD, on home oxygen; type 2 diabetes; proximal atrial fibrillation; history of anticardiolipin antibody; history of laryngeal carcinoma, status post radiation. HOME MEDICATIONS: 1. Guaifenesin 600 mg by mouth 2 times daily as needed for cough and congestion. 2. Paxil 10 mg by mouth daily. 3. Metoprolol tartrate 25 mg by mouth 2 times daily. 4. Protonix 40 mg by mouth daily. 5. Multivitamin 1 tablet by mouth 2 times daily. 6. Levocetirizine 5 mg by mouth daily. 7. Dulera 2 puffs inhaled 2 times daily. 8. Plavix 75 mg by mouth daily. 9. Lasix 20 mg by mouth daily. 10. Synthroid 100 mcg by mouth daily. 11. Albuterol sulfate 2 puffs inhaled every 4 hours as needed for shortness of breath or wheezing. 12. Xarelto 20 mg by mouth daily. 13. Rosuvastatin 5 mg by mouth Wednesday, Wednesday, and Wednesday. 14. Coenzyme Q 1000 mg by mouth daily. 15. Atrovent 0.5 mg inhaled 2 times daily as needed for shortness of breath or wheezing. 16. Albuterol 2.5 mg inhaled every 4 to 6 hours as needed for shortness of breath or wheezing. ALLERGIES: To MILK PROTEIN EXTRACT, TIOTROPIUM, ATORVASTATIN, EZETIMIBE, ROSUVASTATIN, SIMVASTATIN, AND PENICILLIN. FAMILY HISTORY: Significant for type 2 diabetes, hypertension, and CAD. SOCIAL HISTORY: The patient is a former smoker. No alcohol or recreational drugs. Lives at home with his . He is a full code. REVIEW OF SYSTEMS: A 12-point review of systems is negative except for that as noted in the HPI. PHYSICAL EXAMINATION GENERAL: The patient is an elderly man, sitting in bed with BiPAP in place, in moderate respiratory distress. VITAL SIGNS: On admission, temperature 97.1, heart rate of 108, respiratory rate of 32, O2 saturation 75% on 15 L nonrebreather, blood pressure 150/84. HEENT: BiPAP in place, dry mucous membranes. LUNGS: The patient with a prolonged respiratory phase, absent breath sounds in the right anterior upper lung paz. CARDIOVASCULAR: Irregularly irregular, normal rate, unable to appreciate murmur. ABDOMEN: Soft, nontender, nondistended. Bowel sounds positive. EXTREMITIES: The patient with 2+ pitting edema in bilateral lower extremities. NEURO: The patient is alert, oriented. No focal neurological deficits. SKIN: Dry. Cool in the extremities. DIAGNOSTIC STUDIES/LAB DATA: White blood cell count of 12.8, hematocrit of 37 , platelets of 546. INR 1.33. Initial blood gas: pH of 7.13, PCO2 of 84, PO2 of 229, bicarb of 23. Sodium of 139, potassium of 4.4, chloride of 99, carbon dioxide 27, BUN of 21, creatinine 1.31, glucose of 315, lactic acid of 7.9. Troponin of 0.01. CRP of 22. B-natriuretic peptide of 1503. TSH of 2.58. Lipase of 49. Initial chest x-ray personally reviewed showed a moderately large right pneumothorax with leftward mediastinal shift, stigmata of advanced COPD. Post chest tube placement showed complete resolution of pneumothorax. ASSESSMENT AND PLAN: Acute combined hypoxic and hypercarbic respiratory failure secondary to pneumothorax in an 81-year-old man with a past medical history of hypertension; ischemic cardiomyopathy; severe chronic obstructive pulmonary disease, on chronic O2; type 2 diabetes; paroxysmal atrial fibrillation. 1. Acute combined hypoxic and hypercarbic respiratory failure secondary to pneumothorax. Appreciate Surgery's assistance. The patient shows complete resolution of pneumothorax on portable imaging. Blood gases improved on the repeat. We will continue the patient on BiPAP overnight, and we will plan on weaning him off tomorrow. He did have some hypotension after the chest tube was placed and received 1 L of IV fluids. We will try to hold on additional fluids for now with hx of of ICM, bolus as needed. I do not think the patient is having chronic obstructive pulmonary disease exacerbation. We will get a Pulmonology consult in the morning and we will discuss any alternative therapies that the patient may undergo to try to prevent these recurrent respiratory issues and hospitalizations. The patient has had Palliative Care consult in the past and he and his were not responsive to it. We will discuss this again with the family tomorrow. 2. Hypotension. The patient had systolics in the 70s to 80s briefly in the emergency department that seemed to respond to IV fluids after 1 L bolus. We will hold on additional fluids for now if able and will only bolus if the patient becomes hypotensive. I would like to try to avoid causing any further fluid overload as the patient has a poor EF and significant peripheral edema. 3. Recent methicillin-resistant Staphylococcus aureus pneumonia. Seems like this is probably adequately treated. CRP is down from previous. I will cover for now with vancomycin and cefepime in the acute phase. I will check a procalcitonin. May be able to stop antibiotics tomorrow. The patient only has a minimally elevated leukocytosis and has been taking his Bactrim. 4. Acute kidney injury. The patient's creatinine is up to 1.31 from 0.76 a few days ago. He received some IV fluid in the emergency department. We will recheck BMP in the morning. 5. Lactic acidosis. Probably driven more by hypoxia than hypovolemia/shock, was 7.9. As the patient is stabilized, we will recheck now. He has also received 1 liter of IV fluids. 6. History of ischemic cardiomyopathy. We will hold the patient's home metoprolol for now in the setting of hypotension. May be able to restart tomorrow. We will continue Plavix. 7. Paroxysmal atrial fibrillation. Continue Xarelto, holding metoprolol. 8. Hypothyroidism. Continue home Synthroid. 9. DVT prophylaxis. Xarelto. 10. Code status. The patient is a full code. TIME SPENT: Total time spent on this admission 75 minutes, with over half the time spent [id number] with the patient in counseling and coordinating care. [id number]/[facility] #: [id number] RM
[2016-11-11] MEDS: Insulin REGULAR(*) 1 UNITS UNIT SUBCUT SCH (23:42)
[2016-11-11] MEDS ORDERED: NS 0.9% 250 ML* 250 ML IV ONE (23:56)
[2016-11-12 00:30] LABS: EPAP 5; FIO2 35; IPAP 16; Resp Rate 16
[2016-11-12 00:33] LABS: PCO2 Arterial 50 mmHg (35-45)
[2016-11-12] MEDS: Vancomycin(*) 1,000 MG in NS 0.9% 250 ML* 250 ML IVPB SCH ×2 (03:21→11:51)
--- NOTE | 2016-11-12 04:02 | CONS ---
CC: [facility]; Dr. Chin, Pulmonology; Dr. Dayne Flores SURGICAL CONSULTATION AND PROCEDURE NOTE: DATE OF CONSULT/PROCEDURE: 11/11/16 HISTORY: I was contacted by the emergency room doctors to evaluate Mr. Williamson, an 81-year-old gentle man with a recent diagnosis of pneumonia, admitted to [facility] on 11/02/16, seen by the ICU and worked up with diagnosis of pneumonia and respiratory distress. The patient's hospital course is co mplicated with a right- sided pneumothorax possibly secondary to bowel trauma. The patient underwen t a chest tube placement by the ICU team and this small bore tube was removed prior to patient's dis charge. According to patient's , he was discharged home on Bactrim. He had been taking it regularly and had a couple of good days, which got worse earlier today when patient had shortness of breath and c hest pain. He had even checked his blood pressure early in the day and heart rate and these were wi thin normal limits, but the patient presented to the emergency room and workup including labs and vi bernice signs were evaluated. The patient underwent a chest x-ray which showed a moderately large right -sided pneumothorax with leftward mediastinal shift. The patient was placed on a positive airway pressure by the respiratory therapist. Labs were drawn a nd these were reviewed, as well as patient's chemistry level and blood gas. The patient answers questions with some difficulty. His is helpful. He feels somewhat better since being treated by the respiratory therapist at this point. PAST MEDICAL HISTORY: Reviewed. REVIEW OF SYSTEMS: On review of systems, shortness of breath is described. Chest pain is described . No significant weight loss or weight gain. The patient had been eating at home, urinating okay, but taking a low amount of drink according to the patient' s . PHYSICAL EXAM: Elderly gentleman lying on stretcher with CPAP machine on, in some distress. Answer s questions appropriately. His voice is hoarse. He is using his accessory muscles to breathe. Tra cullen shows no midline shift. Chest reveals no lung sounds on the right at the apices. No wheezing on the left side. Abdomen within normal limits. DIAGNOSTIC DATA: Labs reviewed, described as above. Chest x-ray as above. IMPRESSION: Right-sided pneumothorax of unclear etiology. This does not represent a spontaneous pn eumothorax, but rather a sequela to pervious admission and pneumothorax and pneumonia. We do not se e fluid collection to represent a parapneumonic effusion and I do not feel the patient would warrant a chest tube at this time, but rather additional workup. I did recommend a Heimlich valve chest tu be just to be aware of the radiographic mediastinal shift and the patient's tachypnea and to protect them against the possibility of needing to be intubated later on in this hospital course, but I do recommend Dr. Chin's evaluation. He may well require ICU admission and Infectious Disease to help with treatment of pneumonia. PROCEDURE REPORT: After obtaining informed consent from the and discussing the case with both her and her , the right upper chest was prepped and draped sterilely. Injection with lidocai ne along the proposed incision was carried out. This incision was made and a [place] Heimlich valv e type tubing was then inserted into the right chest with ease. Air escaped and this was connected with Heimlich valve and then on to a Pleur-Evac. Sterile dressing was applied after this was suture d to the skin. The patient tolerated the procedure well. As I dictate this, it has been brought to my attention that there is pleural fluid coming out throug h this tube which is not entirely surprising. I would prefer to culture this and obtain chest CT an d pulmonology evaluation prior to any additional intervention, namely with a large bore tube or othe rwise. I will discuss this case with Dr. Terry, Thoracic Surgery as well and we will continue to follow wh ile the patient is hospitalized. [id number]/[facility] #: [id number]
[2016-11-12 05:18] LABS: Hematocrit 26 % (42-52); Hemoglobin 8.1 g/dl (14.0-18.0); Mean Corpuscular HGB Conc 31 g/dl (31-36); Mean Corpuscular Hemoglobin 25 pg (27-31); Mean Corpuscular Volume 82 fL (80-94); Mean Platelet Volume 7 um3 (7.4-10.4); Red Blood Count 3.23 10^6/ul (4.0-5.4); Red Cell Distribution Width 17 % (10.5-15); White Blood Count 9.1 10^3/ul (3.5-10.8)
[2016-11-12 05:29] LABS: BUN/Creatinine Ratio 21.1 (8-20); Calcium 7.7 mg/dL (8.6-10.3); EGFR African American 103.9 (>60); EGFR Non-African American 80.8 (>60); Potassium 4.8 mmol/L (3.5-5.0)
[2016-11-12] MEDS: Insulin REGULAR(*) 1 UNITS UNIT SUBCUT SCH (05:43)
[2016-11-12] MEDS: Levothyroxine TAB* 100 MCG TAB PO SCH (06:14)
[2016-11-12] MEDS ORDERED: Dextrose 50% Syringe 50 ML* 25 GM/50 ML SYRINGE IV PUSH PRN (08:57)
--- NOTE | 2016-11-12 09:04 | PN ---
Subjective Date of Service: 11/12/16 Interval History: Patient seen this morning. Weaned off of BiPAP, on 5L. Says he is feeling much better today. Says she coughed up a "big gob" of mucous overnight, but otherwise has not been coughing much at all. No fever or chills. Not hungry. Discussed recurrent hospitalizations and the fact that the it seems like there is an overall decline, expressed my concern about his recurrent episodes of respiratory failure requiring either BiPAP or intubation and now the recurrent episodes of PTX. Asked if he wants to continue coming to the hospital so frequently and he said no. Offered to have the palliative care team speak again with him. Family History: Unchanged from Admission Social History: Unchanged from Admission Past Medical History: Unchanged from Admission Objective Active Medications: Albuterol (Ventolin 2.5 Mg/3 Ml Neb.Maria Luisa*) 2.5 mg INH .Q4-6H PRN Cetirizine HCl (Zyrtec*) 10 mg PO QPM [facility] Clopidogrel Bisulfate (Plavix Tab*) 75 mg PO DAILY [facility] Coenzyme Q10 (Coenzyme Q10 (Nf)) 2 cap PO DAILY [facility] Dextrose (D50w Syringe 50 Ml*) 12.5 gm IV PUSH .FOR FS < 60 - SS PRN Guaifenesin (Mucinex*) 600 mg PO BID PRN Cefepime HCl 1 gm/ Sodium (Chloride) 50 mls @ 100 mls/hr IVPB Q24H [facility] Vancomycin HCl 1,000 mg/ (Sodium Chloride) 250 mls @ 166.667 mls/hr IVPB Q8H [facility] Insulin Human Lispro (Humalog*) 0 - 5 units SUBCUT AC [facility] Ipratropium [place] (Atrovent 0.5 Mg Neb.Maria Luisa*) 0.5 mg INH BID PRN Levothyroxine Sodium (Synthroid Tab*) 100 mcg PO 0600 [facility] Mometasone Furoate/Formoterol Fumar (Dulera 100/5 Mdi*) 2 puff INH BID [facility] Paroxetine HCl (Paxil Tab*) 10 mg PO DAILY [facility] Pharmacy Consult (Vancomycin Per Pharmacy*) 1 note FOLLOW UP . PRN Pharmacy Profile Note (Vancomycin Trough Check) 1 note FOLLOW UP 1999 ONE Rivaroxaban (Xarelto (*)) 20 mg PO DAILY@1700 [facility] Vital Signs 11/11/16 11/11/16 11/11/16 18:38 18:45 19:00 Temperature Pulse Rate Respiratory 24 20 24 Rate Blood Pressure 87/61 70/37 112/77 (mmHg) O2 Sat by Pulse Oximetry 11/11/16 11/11/16 11/11/16 20:26 20:30 20:45 Temperature Pulse Rate 64 Respiratory 23 23 23 Rate Blood Pressure 75/35 92/44 (mmHg) O2 Sat by Pulse 94 Oximetry 11/12/16 06:00 Temperature 99.3 F Pulse Rate 71 Respiratory 22 Rate Blood Pressure 96/45 (mmHg) O2 Sat by Pulse 94 Oximetry Oxygen Devices in Use Now: Nasal Cannula - 5L Appearance: Elderly, M, laying in bed in NAD Eyes: No Scleral Icterus Ears/Nose/Mouth/Throat: - - Dry MM Neck: NL Appearance and Movements; NL JVP Respiratory: Symmetrical Chest Expansion and Respiratory Effort, - - Diminished BS in upper lobes, prolonged expiratory phase, some expiratory wheezing in LML field, absent BS in B/L lower lung paz. Heimlich valve in place in R anterior chest Cardiovascular: - - IRIR, normal rate Abdominal: NL Sounds; No Tenderness; No Distention Lymphatic: No Cervical Adenopathy Extremities: - - B/L LE edema to moon Skin: No Rash or Ulcers, - - Warm Neurological: Alert and Oriented x 3 Lines/Tubes/Other Access: Clean, Dry and Intact Chest Tube Result Diagrams: 11/12/16 05:07 11/12/16 05:07 Microbiology and Other Data: Microbiology 11/11/16 20:08 Nasal Screen MRSA (PCR)([facility]) - Final Nasal Mrsa Positive Assess/Plan/Problems-Billing Assessment: Acute on chronic combined hypoxic and hypercarbic respiratory failure 2/2 PTX in an 81 yo M with hx of HTN, CAD s/p PCI, ICM EF 30%, severe O2-dependent COPD , DM, pAF on xarelto and recent admission for respiratory failure requiring intubation 2/2 MRSA PNA with course complicated by PTX - Patient Problems (1) Acute respiratory failure with hypoxia and hypercarbia Current Visit: No Comment: on chronic, 2/2 PTX. Improving. ABG improved, weaned to salter. Seems unlikely that infection is playing a role, will send pleural fluid for culture, likely stop ABx today. Do not appreciate evidence of COPD exacerbation, hold on systemic steroids. (2) Pneumothorax Current Visit: No Comment: Recurred after recent hospitalization and improvement. S/P heimlich valve by Dr. Mann on 11/11, fluid output ~150 cc overnight. Will ask Pulmonology to consult ?any other therapies to offer, ? benefit of consideration for VATS or perhaps more aggressive push for palliative care. CT scan not yet read but shows significant effusions likely 2/ 2 IVF given on admission and overnight. (3) Hypotension Current Visit: Yes Comment: SBPs stable in 90s. Hold on additional IVF at this time. Holding home Metoprolol. (4) MARII (acute kidney injury) Current Visit: Yes Comment: Resolved (5) Ischemic cardiomyopathy Current Visit: Yes Comment: Holding Metoprolol. Continue Plavix. Holding Lasix. (6) Afib Current Visit: No Comment: Continue xarelto. Holding metoprolol (7) COPD (chronic obstructive pulmonary disease) Current Visit: No Comment: Continue home inhalers/nebs. Pulm consult pending. Have placed palliative care consult. (8) DVT prophylaxis Current Visit: No Comment: xarelto (9) MRSA pneumonia Current Visit: Yes Comment: Present on last admission. Seems like it was adequately treated during and after recent hospitalization. CRP down and procalcitonin negative. Pleural fluid culture/GS pending, will probably stop ABx today. (10) Full code status Current Visit: No Status and Disposition: Inpatient for respiratory failure, PTX
[2016-11-12] MEDS: Mometasone/Formoter 100/5 MDI INH SCH ×2 (09:10→19:45)
--- NOTE | 2016-11-12 09:16 | RAD ---
HISTORY: Pneumothorax COMPARISONS: None TECHNIQUE: Multiple contiguous axial CT scans of the chest were obtained without intravenous contrast. Coronal and sagittal multiplanar reformations are also submitted for review. FINDINGS: The study is limited by the lack of intravenous contrast. This limits evaluation of the solid organs and vasculature. NECK AND THYROID: The lower neck and thyroid are unremarkable. CHEST WALL: There is no lower cervical, axillary, or supraclavicular lymphadenopathy by size criteria. HEART AND PERICARDIUM: The heart is unremarkable. AORTA AND PULMONARY VASCULATURE: The aorta and pulmonary vasculature are normal. MEDIASTINUM: There is no mediastinal lymphadenopathy by size criteria. ENRIKE: There is no hilar lymphadenopathy by size criteria. AIRWAY AND ESOPHAGUS: The airway is unremarkable, without endobronchial filling defect. The esophagus is grossly normal. LUNG PARENCHYMA: There is extensive centrilobular emphysematous change. There is compressive atelectasis of the left lower lobe. PLEURA: There is a small right-sided pneumothorax. There are large bilateral pleural effusions UPPER ABDOMEN: The upper abdomen is unremarkable. BONES AND SOFT TISSUES: Degenerative changes are noted of the spine OTHER: Small right-sided chest tube is noted. IMPRESSION: 1. EMPHYSEMA. 2. SMALL RIGHT PNEUMOTHORAX. 3. LARGE BILATERAL PLEURAL EFFUSIONS WITH COMPRESSIVE ATELECTASIS OF THE LEFT LOWER LOBE
[2016-11-12] MEDS: Clopidogrel TAB* 75 MG PO SCH (09:18)
[2016-11-12] MEDS: PARoxetine HCL TAB* 10 MG PO SCH (09:18)
[2016-11-12] MEDS: COENZYME Q10 200 MG PO SCH (09:27)
[2016-11-12] MEDS: Insulin LISPRO* 1 UNITS UNIT SUBCUT SCH ×3 (12:35→20:53)
--- NOTE | 2016-11-12 14:18 | CONS ---
PULMONARY CONSULTATION REPORT: DATE OF CONSULTATION: 11/12/16 CONSULTED REQUESTED BY: Dr. Kahn. REASON FOR CONSULTATION: Recurrent pneumothorax. HISTORY OF PRESENT ILLNESS: The patient is an 81-year-old male with history of hypertension, ischemic cardiomyopathy with EF of 32% to 35%, paroxysmal atrial fibrillation, severe COPD with significant paraseptal and centrilobular emphysema, O2 dependent, type 2 diabetes, laryngeal cancer, status post radiation, recent admission for pneumothorax, respiratory failure from community -acquired pneumonia due to MRSA. The patient was recently hospitalized for acute hypoxemic respiratory failure, requiring BiPAP due to MRSA pneumonia. The patient had a complicated hospital course with pneumothorax. Had chest tube placement placed. The patient had chest tube removed and was discharged home. The patient returns with acute onset of shortness of breath and cyanosis. The patient was doing well since discharge until this acute episode happened. The patient was noted to have moderate-sized right pneumothorax again. The patient had Heimlich valve placed by Dr. Mann in the emergency room. The patient was admitted to the ICU and is being closely monitored. The patient still continues to have air leak. I have personally reviewed CT chest performed on this admission in comparison with his prior chest x-rays. The patient with significant emphysematous changes again. No mediastinal or hilar adenopathy noted. There is evidence of a small right-sided pneumothorax. The patient also with moderate to large sized bilateral pleural effusions. The patient also with atelectasis of the left lower lobe. The patient reports improvement in symptoms currently. PAST MEDICAL HISTORY: 1. Recent hypoxemic respiratory failure secondary to MRSA pneumonia. 2. Recent pneumothorax. 3. Systolic CHF with EF of 35%. 4. Hypertension. 5. Severe emphysema on home O2. 6. Type 2 diabetes. 7. Atrial fibrillation. 8. History of anticardiolipin antibody. 9. Laryngeal carcinoma, status post radiation. MEDICATIONS AT HOME: 1. Guaifenesin 600 mg 2 times a day. 2. Paxil 10 mg daily. 3. Metoprolol 25 mg b.i.d. 4. Protonix 40 mg daily. 5. Multivitamin 1 tablet 2 times a day. 6. Levocetirizine 5 mg daily. 7. Dulera 2 puffs twice daily. 8. Plavix 75 mg daily. 9. Lasix 20 mg daily. 10. Synthroid 100 mcg daily. 12. Albuterol 2 puffs q.4h. 13. Xarelto 20 mg daily. 14. Rosuvastatin 5 mg Wednesday, Wednesday, and Wednesday. 15. Coenzyme Q 1000 mg by mouth daily. 16. Atrovent 0.5 mg 2 times daily. 17. Albuterol 2.5 mg q.4-6h. as needed. ALLERGIES: MILK PROTEIN EXTRACT, TIOTROPIUM, ATORVASTATIN, EZETIMIBE, ROSUVASTATIN, SIMVASTATIN, PENICILLIN. FAMILY HISTORY: Type 2 diabetes, hypertension, CAD. SOCIAL HISTORY: Former smoker. No alcohol or drug abuse. Lives at home with . REVIEW OF SYSTEMS: A 14-point review of systems performed as per HPI. PHYSICAL EXAM: The patient in bed in no apparent distress, not using accessory muscles. Vital Signs: Temperature 99.1, pulse rate 79 beats per minute, respiratory rate 19, O2 sat 92% on 30% FiO2, blood pressure 106/87. HEENT: Pupils equal and reactive to light, mucous membranes dry. Lungs: Prolonged respiratory phase, diminished air entry bilaterally, decreased air entry in the bases bilaterally. Cardiovascular: Irregular. No appreciable murmur. Abdomen : Soft, nontender, nondistended. Bowel sounds present. Extremities: 2+ edema in the lower extremities. Neurological: Alert, awake, and oriented x3. No focal deficits. Skin: No edema. DIAGNOSTIC STUDIES/LAB DATA: Hemoglobin 8.1, hematocrit 26, WBC count 9.1, platelet count 314. INR 1.33. ABG showed pH of 7.39, pCO2 50, pO2 75, bicarb 28.6, O2 sat 98% on 35% FiO2, and the patient was on BiPAP of 16/[address] scan of the chest as described above in HPI. IMPRESSION AND RECOMMENDATIONS: 81-year-old male with history of severe emphysema, history of laryngeal cancer, systolic congestive heart failure with second admission over the past 2 weeks for recurrent pneumothorax. The patient is status post chest tube placement for pneumothorax. The patient is currently not in any kind of distress. Repeat CT chest shows small pneumothorax on the right side. The patient still continues to have significant air leak. Continue with O2 supplementation. Continue with bronchodilators. Given significant comorbidities and the fact that he might not tolerate a VATS pleurodesis, I have recommended a Heimlich valve for relief of pneumothorax and remove it when air leak seals off. I am concerned about recurrence in the future and his labile status might make him not a candidate for aggressive measures like a VATS pleurodesis. Once his pleural effusion resolves on the right side, chemical pleurodesis could be an option through the chest tube. Will discuss this with Surgery. I have had discussion regarding palliative care with the patient. His was not present at that time. The patient would want to have the discussion with his before he would decide. He agreed that it is important for him to be comfortable towards the end of the life and sometimes aggressive measures might be futile and just prolong the suffering. I would focus on more of comfort care approach, treat acute episodes and then make him comfortable without much aggressive measures. I have returned when was available at bedside. I have discussed with his in the room again, regarding his current condition, prognosis and advance directives. She is not in favor of comfort measures at this time. She is in favor of agressive measures and believes that he will survive these measures as he was functional according to her until now. TIME SPENT: Total time spent is 70 minutes with half of the time [id number] with patient and his in counseling and coordinating the care. [id number]/[facility] #: [id number] RM
[2016-11-12] MEDS ORDERED: Morphine ORAL CONCENTRATE* 5 MG/0.25 ML ORAL.SYRIN SL PRN (16:01)
[2016-11-12] MEDS: Cetirizine* 10 MG TAB PO SCH (18:05)
[2016-11-12] MEDS: Rivaroxaban TAB(*) 20 MG TAB PO SCH (18:06)
--- NOTE | 2016-11-12 19:43 | CONS ---
PALLIATIVE CARE CONSULTATION: DATE OF CONSULT: 11/12/16 PRIMARY CARE PHYSICIAN: Dayne Flores DO REQUESTING PHYSICIAN FOR CONSULT: Randolph Kahn MD HOSPITAL COURSE: This is an 81-year-old male with a past medical history of severe COPD, who was recently admitted 3 days prior to this admission with respiratory failure requiring intubation, readmitted 3 days later on the with shortness of breath. He also has a history of ischemic cardiomyopathy with an ejection fraction of 30% to 35%. The patient arrived via EMS on BiPAP. Apparently, he became acutely short of breath prior to doing well after his discharge. In the emergency room, the patient was noted to have right-sided pneumothorax. Dr. Mann did an urgent Heimlich valve. The patient was on BiPAP last night and he is now switched to Salter at 5 L. The patient has been intubated 3 times in the past, back in August 2015, back in March of 2016 , and again this month in November. Prior to his admission this month, he had been doing relatively well, only needing oxygen at bedtime and getting out of the house on a daily basis since his discharge that was on the . He was requiring 3 L at rest and 6 L at bedtime. The patient is now ambulating with a walker. Due to this [id number] size pneumothorax, Pulmonary was consulted, who did not feel that with all his significant medical comorbidities , he is a candidate for the VATS pleurodesis and he may be a candidate for chemical pleurodesis, but overall, with his significant comorbidities to reevaluate with Palliative Care. The patient states his breathing is close to his baseline. He denies any pain at this time. I did discuss his code status, which the states his MOLST form is on his refrigerator and she states he reviewed it with Dr. Flores and it is a DNR trial intubation. I did ask him if he would want to be intubated again and he said he did not know and the was unsure either. I discussed with his comorbidities and his significant lung disease that he is eligible for hospice and ideally, he could go home with hospice if he is getting around with a walker and his is around as well. This did cause a lot of anxiety for both of them and they had a hard time discussing much further. They do want to consider it as they realized the significance of his medical problems and will talk about it amongst themselves further. I did go into details about the hospice benefits aiming to improve quality and symptom control and trying to keep him home and avoid recurrent admissions, which did not mean we would not treat his symptoms. Otherwise, the patient's remaining review of systems is negative. PAST MEDICAL HISTORY: As mentioned, recent admission from November 02 to November 08 for respiratory failure and also complicated by pneumothorax requiring intubation. 1. Ischemic cardiomyopathy with an ejection fraction of 30% to 35%. 2. Coronary artery disease with a PCI, stent placement in September 2015. 3. Severe end-stage COPD, on 3 L continuous, 6 L at night prior to this admission. 4. Paroxysmal atrial fibrillation. 5. History of laryngeal carcinoma, status post chemotherapy and radiation 12 years ago. 6. History of SVT. 7. Diabetes. 8. Hypertension. 9. History of cholelithiasis. 10. History of anticardiolipin antibody. INPATIENT MEDICATIONS: 1. Albuterol q.4 to 6 hours. 2. Zyrtec 10 mg at bedtime. 3. Plavix 75 mg daily. 4. Coenzyme Q10 2 caps daily. 5. Lispro sliding scale. 6. Ipratropium b.i.d. as needed. 7. Levothyroxine 100 mcg daily. 8. Cefepime 1 g q.24. 9. Mometasone/formoterol 2 puffs inhaled b.i.d. 10. Paroxetine 10 mg daily. 11. Rivaroxaban 20 mg daily. 12. Vancomycin 1000 mg q.8 hours. 13. Guaifenesin ER 600 mg p.o. b.i.d. as needed. ALLERGIES: MILK PROTEIN EXTRACT, TIOTROPIUM, ATORVASTATIN, EZETIMIBE, ROSUVASTATIN, SIMVASTATIN, PENICILLIN. FAMILY HISTORY: Mother from rheumatic fever. Father from black lungs. SOCIAL HISTORY: The patient lives at home with his , Jasmin, who is his healthcare proxy. Home phone number [phone]. Cell phone [phone]. He quit smoking in . When asked how long and how much, he said too long and too much. No history of alcohol or illicit drug use. He has 3 children and several grandchildren. The patient's MOLST form which is at home states he is a DNR trial intubation. REVIEW OF SYSTEMS: As mentioned in the HPI. PHYSICAL EXAM: Vitals: Temp 99.4, pulse rate is 93, respiratory rate 22, oxygen saturation 90% on 5 L, blood pressure 110/49. General: Frail, elderly man, in no acute significant distress. HEENT: Pupils equal and reactive. Anicteric. Head: Normocephalic. Oropharynx: Mucous membranes are dry. Neck: Supple. No lymphadenopathy. Respiratory: Poor aeration. Diminished breath sounds. Prolonged expiratory phase with bilateral expiratory wheezing. Cardiac : Irregularly irregular rate and rhythm. Soft systolic murmur heard throughout. Abdomen: Soft, nontender, nondistended. Extremities: Trace pretibial edema. +1 DPs. Neurologic: Alert and oriented x3. No focal neurologic deficits. The patient with a raspy voice that is chronic from his laryngeal cancer. DIAGNOSTIC STUDIES/LAB DATA: White count 9, hemoglobin 8, hematocrit 26, platelets 314. INR 1.33. Sodium 139, potassium 4.8, chloride 107, bicarb 27, BUN 19, creatinine 0.9, glucose 159. Chest CT from November 12 shows emphysema, small right pneumothorax, large bilateral pleural effusions with compression, compressive atelectasis of the left lower lobe. ASSESSMENT AND PLAN: This is an 81-year-old male with a past medical history of recurrent admissions with respiratory distress requiring intubations in the past year, also with a history of ischemic cardiomyopathy with ejection fraction 35%, who presented as a readmission after 3 days of being home with acute-onset shortness of breath, found to have a [id number]-ip-[id number] size pneumothorax, now with a Heimlich valve in place. He is in the ICU. He has some intermittent conversational dyspnea and is ill appearing. We discussed his code status at length. He is not sure if he would want to get intubated again and I discussed that he is eligible for hospice based on his principal diagnosis of end-stage chronic obstructive pulmonary disease, secondary diagnosis of ischemic cardiomyopathy. The and the patient both want to talk about this more at length regarding their choices and their decisions as to what they would want. She is going to bring in his MOLST form from home and I am going to have Kimberly, psychiatric social worker supervisor, reevaluate after they discuss further as they have come up with a decision. We will add low-dose morphine as needed for air hunger, shortness of breath. Thank you for this consultation. I will follow along with you. PATIENT TIME: Greater than 90 minutes spent doing this consultation, more than half the time spent in direct patient contact. CC: Dayne Flores DO* [id number]/[facility] #: [id number] RM
[2016-11-12] MEDS ORDERED: Vancomycin Trough Check NOTE FOLLOW UP ONE (20:00)
[2016-11-13] MEDS: Levothyroxine TAB* 100 MCG TAB PO SCH (06:19)
[2016-11-13 07:24] LABS: Hematocrit 29 % (42-52); Hemoglobin 8.9 g/dl (14.0-18.0); Mean Corpuscular HGB Conc 31 g/dl (31-36); Mean Corpuscular Hemoglobin 25 pg (27-31); Mean Corpuscular Volume 81 fL (80-94); Mean Platelet Volume 7 um3 (7.4-10.4); Red Blood Count 3.54 10^6/ul (4.0-5.4); Red Cell Distribution Width 18 % (10.5-15); White Blood Count 8.4 10^3/ul (3.5-10.8)
[2016-11-13] MEDS: PARoxetine HCL TAB* 10 MG PO SCH (08:16)
[2016-11-13] MEDS: Clopidogrel TAB* 75 MG PO SCH (08:16)
[2016-11-13] MEDS: COENZYME Q10 200 MG PO SCH (08:16)
--- NOTE | 2016-11-13 08:40 | PN ---
Subjective Date of Service: 11/13/16 Interval History: Appetite fair. He denies cough, pain. No new c/o. Family History: Unchanged from Admission Social History: Unchanged from Admission Past Medical History: Unchanged from Admission Objective Active Medications: Albuterol (Ventolin 2.5 Mg/3 Ml Neb.Maria Luisa*) 2.5 mg INH .Q4-6H PRN PRN Reason: SHORTNESS OF BREATH Cetirizine HCl (Zyrtec*) 10 mg PO QPM [facility] Last Admin: 11/12/16 18:05 Dose: 10 mg Clopidogrel Bisulfate (Plavix Tab*) 75 mg PO DAILY [facility] Last Admin: 11/13/16 08:16 Dose: 75 mg Coenzyme Q10 (Coenzyme Q10 (Nf)) 2 cap PO DAILY [facility] Last Admin: 11/13/16 08:16 Dose: Not Given Dextrose (D50w Syringe 50 Ml*) 12.5 gm IV PUSH .FOR FS < 60 - SS PRN PRN Reason: FS < 60 Guaifenesin (Mucinex*) 600 mg PO BID PRN PRN Reason: CONGESTION Insulin Human Lispro (Humalog*) 0 - 5 units SUBCUT AC [facility] PRN Reason: Protocol Last Admin: 11/12/16 20:53 Dose: 1 units Ipratropium [place] (Atrovent 0.5 Mg Neb.Maria Luisa*) 0.5 mg INH BID PRN PRN Reason: SHORTNESS OF BREATH Levothyroxine Sodium (Synthroid Tab*) 100 mcg PO 0600 [facility] Last Admin: 11/13/16 06:19 Dose: 100 mcg Mometasone Furoate/Formoterol Fumar (Dulera 100/5 Mdi*) 2 puff INH BID [facility] Last Admin: 11/12/16 19:45 Dose: 2 puff Morphine Sulfate (Morphine Oral Concentrate*) 2 mg SL Q2H PRN PRN Reason: PAIN Paroxetine HCl (Paxil Tab*) 10 mg PO DAILY [facility] Last Admin: 11/13/16 08:16 Dose: 10 mg Rivaroxaban (Xarelto (*)) 20 mg PO DAILY@1700 [facility] Last Admin: 11/12/16 18:06 Dose: 20 mg Vital Signs 11/12/16 11/12/16 11/12/16 09:00 09:30 10:00 Temperature 99.1 F 99.1 F 99.0 F Pulse Rate 81 76 94 Respiratory 19 25 24 Rate Blood Pressure 106/87 100/46 110/56 (mmHg) O2 Sat by Pulse 92 93 92 Oximetry 11/12/16 11/12/16 11/12/16 10:30 11:00 11:30 Temperature 99.1 F 99.3 F Pulse Rate 87 84 Respiratory 22 24 Rate Blood Pressure 99/49 106/43 101/52 (mmHg) O2 Sat by Pulse 93 95 Oximetry 11/12/16 11/12/16 11/12/16 12:00 12:30 13:00 Temperature 99.5 F 99.5 F 99.2 F Pulse Rate 87 73 77 Respiratory 26 22 23 Rate Blood Pressure 89/38 92/46 (mmHg) O2 Sat by Pulse 91 91 97 Oximetry 11/12/16 11/12/16 11/12/16 13:30 14:00 14:36 Temperature 99.1 F 99.1 F 99.4 F Pulse Rate 85 93 Respiratory 24 25 22 Rate Blood Pressure 106/60 100/33 110/49 (mmHg) O2 Sat by Pulse 88 90 Oximetry 11/12/16 11/12/16 11/12/16 15:00 15:30 16:00 Temperature 99.6 F 99.5 F 99.5 F Pulse Rate 86 91 85 Respiratory 23 24 24 Rate Blood Pressure 89/38 108/39 104/56 (mmHg) O2 Sat by Pulse 94 83 95 Oximetry 11/12/16 11/12/16 11/12/16 16:30 17:00 17:30 Temperature 99.5 F 99.6 F 99.6 F Pulse Rate 72 78 84 Respiratory 22 19 20 Rate Blood Pressure 101/61 97/48 116/54 (mmHg) O2 Sat by Pulse 78 100 100 Oximetry 11/12/16 11/12/16 11/12/16 18:00 18:30 19:00 Temperature 99.5 F 99.5 F 99.5 F Pulse Rate 88 93 92 Respiratory 26 21 23 Rate Blood Pressure 132/46 105/38 108/74 (mmHg) O2 Sat by Pulse 100 96 100 Oximetry 11/12/16 11/12/16 11/12/16 19:30 20:00 20:01 Temperature Pulse Rate 111 Respiratory 22 Rate Blood Pressure 98/51 (mmHg) O2 Sat by Pulse 88 Oximetry 11/12/16 11/12/16 11/12/16 21:00 21:57 22:00 Temperature 99.2 F 99.0 F 99.0 F Pulse Rate 76 72 73 Respiratory 24 21 20 Rate Blood Pressure 107/56 112/56 (mmHg) O2 Sat by Pulse 95 99 99 Oximetry 11/12/16 11/13/16 11/13/16 23:00 00:00 01:00 Temperature 98.8 F 98.7 F 98.7 F Pulse Rate 71 73 73 Respiratory 22 20 19 Rate Blood Pressure 108/52 107/62 98/59 (mmHg) O2 Sat by Pulse 99 97 95 Oximetry 11/13/16 11/13/16 11/13/16 02:00 03:00 04:00 Temperature 98.7 F 98.6 F 98.5 F Pulse Rate 72 84 76 Respiratory 18 21 20 Rate Blood Pressure 106/50 120/58 120/57 (mmHg) O2 Sat by Pulse 96 93 94 Oximetry 11/13/16 11/13/16 11/13/16 05:00 06:00 07:00 Temperature 98.5 F 98.4 F 98.4 F Pulse Rate 77 74 98 Respiratory 18 19 22 Rate Blood Pressure 105/51 116/50 138/76 (mmHg) O2 Sat by Pulse 94 95 91 Oximetry Oxygen Devices in Use Now: Nasal Cannula - 5L Appearance: Alert, sitting up in bed. In good spirits. Looks comfortable. Eyes: No Scleral Icterus Ears/Nose/Mouth/Throat: Clear Oropharnyx, Mucous Membranes Moist Neck: NL Appearance and Movements; NL JVP, No Thyroid Enlargement, Masses Respiratory: Symmetrical Chest Expansion and Respiratory Effort, Clear to Auscultation, Clear to Percussion Cardiovascular: NL Sounds; No Murmurs; No JVD, RRR, No Edema, - Extremities: No Edema, No Clubbing, Cyanosis, - Skin: No Rash or Ulcers, No Nodules or Sclerosis, - Neurological: NL Sensation - Oriented to person and place. Good verbal skills. Result Diagrams: 11/13/16 06:55 11/12/16 05:07 Additional Lab and Data: Lab Results 11/11/16 11/11/16 11/11/16 Range/Units 16:53 16:53 16:53 WBC 12.8 H (3.5-10.8) 10^3/ul RBC 4.33 (4.0-5.4) 10^6/ul Hgb 11.0 L (14.0-18.0) g/dl Hct 37 L (42-52) % MCV 85 (80-94) fL MCH 25 L (27-31) pg MCHC 30 L (31-36) g/dl RDW 18 H (10.5-15) % Plt Count 546 H D (150-450) 10^3/ul MPV 8 (7.4-10.4) um3 Neut % (Auto) 73.1 (38-83) % Lymph % (Auto) 18.8 L (25-47) % [place] % (Auto) 6.5 (1-9) % Eos % (Auto) 1.0 (0-6) % Baso % (Auto) 0.6 (0-2) % Absolute Neuts (auto) 9.3 H (1.5-7.7) 10^3/ul Absolute Lymphs (auto) 2.4 (1.0-4.8) 10^3/ul Absolute Monos (auto) 0.8 (0-0.8) 10^3/ul Absolute Eos (auto) 0.1 (0-0.6) 10^3/ul Absolute Basos (auto) 0.1 (0-0.2) 10^3/ul Absolute Nucleated RBC 0.02 10^3/ul Nucleated RBC % 0.1 Normal RBC Morphology Not Reportable Polychromasia 1+ Hypochromasia 2+ Macrocytosis 1+ [place] Cells 1+ INR (Anticoag Therapy) 1.33 H (0.89-1.11) APTT 26.5 (26.0-36.3) seconds Patient Temperature ABG pH (7.35-7.45) ABG pCO2 (35-45) mmHg ABG pO2 (80-100) mmHg ABG HCO3 (19-31) mmol/L ABG O2 Saturation (95-98) % ABG Base Excess (-2.0-2.0) Respiration Rate O2 Delivery Device Ventilator Type Vent Mode FiO2 Inspiratory Time PEEP Pressure Support Pressure Control EPAP IPAP BiPAP Sodium 139 (133-145) mmol/L Potassium 4.4 (3.5-5.0) mmol/L Chloride 99 L (101-111) mmol/L Carbon Dioxide 27 (22-32) mmol/L Anion Gap 13 H (2-11) mmol/L BUN 21 (6-24) mg/dL Creatinine 1.31 H (0.67-1.17) mg/dL Est GFR ( Amer) 67.4 (>60) Est GFR (Non-Af Amer) 52.4 (>60) BUN/Creatinine Ratio 16.0 (8-20) Glucose 315 H (70-100) mg/dL Lactic Acid (0.5-2.0) mmol/L Calcium 8.9 (8.6-10.3) mg/dL Magnesium 2.2 (1.9-2.7) mg/dL Total Bilirubin 0.80 (0.2-1.0) mg/dL AST 39 (13-39) U/L ALT 26 (7-52) U/L Alkaline Phosphatase 68 (34-104) U/L Total Creatine Kinase 115 (10-223) U/L CK-MB (CK-2) 8.6 H (0.6-6.3) ng/mL Troponin I 0.01 (<0.04) ng/mL C-Reactive Protein 22.58 H (< 5.00) mg/L B-Natriuretic Peptide ( - 100) pg/mL Total Protein 6.6 (6.4-8.9) g/dL Albumin 3.8 (3.2-5.2) g/dL Globulin 2.8 (2-4) g/dL Albumin/Globulin Ratio 1.4 (1-3) Lipase 49 (11.0-82.0) U/L TSH 2.58 (0.34-5.60) mcIU/mL 11/11/16 11/11/16 11/11/16 Range/Units 16:53 16:53 17:40 WBC (3.5-10.8) 10^3/ul RBC (4.0-5.4) 10^6/ul Hgb (14.0-18.0) g/dl Hct (42-52) % MCV (80-94) fL MCH (27-31) pg MCHC (31-36) g/dl RDW (10.5-15) % Plt Count (150-450) 10^3/ul MPV (7.4-10.4) um3 Neut % (Auto) (38-83) % Lymph % (Auto) (25-47) % [place] % (Auto) (1-9) % Eos % (Auto) (0-6) % Baso % (Auto) (0-2) % Absolute Neuts (auto) (1.5-7.7) 10^3/ul Absolute Lymphs (auto) (1.0-4.8) 10^3/ul Absolute Monos (auto) (0-0.8) 10^3/ul Absolute Eos (auto) (0-0.6) 10^3/ul Absolute Basos (auto) (0-0.2) 10^3/ul Absolute Nucleated RBC 10^3/ul Nucleated RBC % Normal RBC Morphology Polychromasia Hypochromasia Macrocytosis [place] Cells INR (Anticoag Therapy) (0.89-1.11) APTT (26.0-36.3) seconds Patient Temperature ABG pH 7.13 L* (7.35-7.45) ABG pCO2 84 H* (35-45) mmHg ABG pO2 229 H (80-100) mmHg ABG HCO3 23.0 (19-31) mmol/L ABG O2 Saturation 100.3 H (95-98) % ABG Base Excess -2.5 L (-2.0-2.0) Respiration Rate O2 Delivery Device Ventilator Type Vent Mode FiO2 Inspiratory Time PEEP Pressure Support Pressure Control EPAP IPAP BiPAP Sodium (133-145) mmol/L Potassium (3.5-5.0) mmol/L Chloride (101-111) mmol/L Carbon Dioxide (22-32) mmol/L Anion Gap (2-11) mmol/L BUN (6-24) mg/dL Creatinine (0.67-1.17) mg/dL Est GFR ( Amer) (>60) Est GFR (Non-Af Amer) (>60) BUN/Creatinine Ratio (8-20) Glucose (70-100) mg/dL Lactic Acid 7.9 H* (0.5-2.0) mmol/L Calcium (8.6-10.3) mg/dL Magnesium (1.9-2.7) mg/dL Total Bilirubin (0.2-1.0) mg/dL AST (13-39) U/L ALT (7-52) U/L Alkaline Phosphatase (34-104) U/L Total Creatine Kinase (10-223) U/L CK-MB (CK-2) (0.6-6.3) ng/mL Troponin I (<0.04) ng/mL C-Reactive Protein (< 5.00) mg/L B-Natriuretic Peptide 1503 H ( - 100) pg/mL Total Protein (6.4-8.9) g/dL Albumin (3.2-5.2) g/dL Globulin (2-4) g/dL Albumin/Globulin Ratio (1-3) Lipase (11.0-82.0) U/L TSH (0.34-5.60) mcIU/mL 11/11/16 Range/Units 19:01 WBC (3.5-10.8) 10^3/ul RBC (4.0-5.4) 10^6/ul Hgb (14.0-18.0) g/dl Hct (42-52) % MCV (80-94) fL MCH (27-31) pg MCHC (31-36) g/dl RDW (10.5-15) % Plt Count (150-450) 10^3/ul MPV (7.4-10.4) um3 Neut % (Auto) (38-83) % Lymph % (Auto) (25-47) % [place] % (Auto) (1-9) % Eos % (Auto) (0-6) % Baso % (Auto) (0-2) % Absolute Neuts (auto) (1.5-7.7) 10^3/ul Absolute Lymphs (auto) (1.0-4.8) 10^3/ul Absolute Monos (auto) (0-0.8) 10^3/ul Absolute Eos (auto) (0-0.6) 10^3/ul Absolute Basos (auto) (0-0.2) 10^3/ul Absolute Nucleated RBC 10^3/ul Nucleated RBC % Normal RBC Morphology Polychromasia Hypochromasia Macrocytosis [place] Cells INR (Anticoag Therapy) (0.89-1.11) APTT (26.0-36.3) seconds Patient Temperature Not Reportable ABG pH Pending (7.35-7.45) ABG pCO2 Pending (35-45) mmHg ABG pO2 Pending (80-100) mmHg ABG HCO3 Pending (19-31) mmol/L ABG O2 Saturation Pending (95-98) % ABG Base Excess Pending (-2.0-2.0) Respiration Rate Not Reportable O2 Delivery Device Bipap Ventilator Type Not Reportable Vent Mode Not Reportable FiO2 80 Inspiratory Time Not Reportable PEEP Not Reportable Pressure Support Not Reportable Pressure Control Not Reportable EPAP 5 IPAP 10 BiPAP Not Reportable Sodium (133-145) mmol/L Potassium (3.5-5.0) mmol/L Chloride (101-111) mmol/L Carbon Dioxide (22-32) mmol/L Anion Gap (2-11) mmol/L BUN (6-24) mg/dL Creatinine (0.67-1.17) mg/dL Est GFR ( Amer) (>60) Est GFR (Non-Af Amer) (>60) BUN/Creatinine Ratio (8-20) Glucose (70-100) mg/dL Lactic Acid (0.5-2.0) mmol/L Calcium (8.6-10.3) mg/dL Magnesium (1.9-2.7) mg/dL Total Bilirubin (0.2-1.0) mg/dL AST (13-39) U/L ALT (7-52) U/L Alkaline Phosphatase (34-104) U/L Total Creatine Kinase (10-223) U/L CK-MB (CK-2) (0.6-6.3) ng/mL Troponin I (<0.04) ng/mL C-Reactive Protein (< 5.00) mg/L B-Natriuretic Peptide ( - 100) pg/mL Total Protein (6.4-8.9) g/dL Albumin (3.2-5.2) g/dL Globulin (2-4) g/dL Albumin/Globulin Ratio (1-3) Lipase (11.0-82.0) U/L TSH (0.34-5.60) mcIU/mL Microbiology and Other Data: Microbiology 11/11/16 20:08 Nasal Screen MRSA (PCR)([facility]) - Final Nasal Mrsa Positive Assess/Plan/Problems-Billing Assessment: 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 Improving. He may be near his new baseline. Pleural fluid C&S from 11/12 pending. (2) PAF (paroxysmal atrial fibrillation) Current Visit: No Status: Acute Code(s): I48.0 - PAROXYSMAL ATRIAL FIBRILLATION SNOMED Code(s): 835042020 Comment: Rate is controlled. Continue rivaroxaban. (3) Hypothyroid Current Visit: No Status: Acute Code(s): E03.9 - HYPOTHYROIDISM, UNSPECIFIED SNOMED Code(s): 50333809 Comment: Continue home dose of synthroid. TSH wnl 11/11/16. (4) CAD (coronary artery disease) Current Visit: No Status: Acute Code(s): I25.10 - ATHSCL HEART DISEASE OF [place] CORONARY ARTERY W/O ANG PCTRS SNOMED Code(s): 62011914 Comment: Continue clopidogrel. I will ask if/why he is not on ASA. He has not been able to tolerate statins. Status and Disposition: Inpatient for respiratory failure, PTX
[2016-11-13] MEDS: Mometasone/Formoter 100/5 MDI INH SCH ×2 (08:52→20:33)
[2016-11-13] MEDS: Insulin LISPRO* 1 UNITS UNIT SUBCUT SCH ×3 (09:03→17:42)
[2016-11-13] MEDS: Cetirizine* 10 MG TAB PO SCH (17:42)
[2016-11-13] MEDS: Rivaroxaban TAB(*) 20 MG TAB PO SCH (17:42)
[2016-11-14] MEDS: Levothyroxine TAB* 100 MCG TAB PO SCH (05:59)
--- NOTE | 2016-11-14 08:11 | PN ---
Subjective Date of Service: 11/14/16 Interval History: When asked, states his breathing is "goog." No other c/o. Family History: Unchanged from Admission Social History: Unchanged from Admission Past Medical History: Unchanged from Admission Objective Active Medications: Albuterol (Ventolin 2.5 Mg/3 Ml Neb.Maria Luisa*) 2.5 mg INH .Q4-6H PRN PRN Reason: SHORTNESS OF BREATH Cetirizine HCl (Zyrtec*) 10 mg PO QPM [facility] Last Admin: 11/13/16 17:42 Dose: 10 mg Clopidogrel Bisulfate (Plavix Tab*) 75 mg PO DAILY [facility] Last Admin: 11/13/16 08:16 Dose: 75 mg Coenzyme Q10 (Coenzyme Q10 (Nf)) 2 cap PO DAILY [facility] Last Admin: 11/13/16 08:16 Dose: Not Given Dextrose (D50w Syringe 50 Ml*) 12.5 gm IV PUSH .FOR FS < 60 - SS PRN PRN Reason: FS < 60 Guaifenesin (Mucinex*) 600 mg PO BID PRN PRN Reason: CONGESTION Insulin Human Lispro (Humalog*) 0 - 5 units SUBCUT AC [facility] PRN Reason: Protocol Last Admin: 11/13/16 17:42 Dose: 1 units Ipratropium [place] (Atrovent 0.5 Mg Neb.Maria Luisa*) 0.5 mg INH BID PRN PRN Reason: SHORTNESS OF BREATH Levothyroxine Sodium (Synthroid Tab*) 100 mcg PO 0600 [facility] Last Admin: 11/14/16 05:59 Dose: 100 mcg Mometasone Furoate/Formoterol Fumar (Dulera 100/5 Mdi*) 2 puff INH BID [facility] Last Admin: 11/13/16 20:33 Dose: 2 puff Morphine Sulfate (Morphine Oral Concentrate*) 2 mg SL Q2H PRN PRN Reason: PAIN Paroxetine HCl (Paxil Tab*) 10 mg PO DAILY [facility] Last Admin: 11/13/16 08:16 Dose: 10 mg Rivaroxaban (Xarelto (*)) 20 mg PO DAILY@1700 [facility] Last Admin: 11/13/16 17:42 Dose: 20 mg Vital Signs 11/13/16 11/13/16 11/13/16 09:00 09:59 11:33 Temperature 98.3 F 97.6 F Pulse Rate 96 104 89 Respiratory 21 23 18 Rate Blood Pressure 138/59 133/69 (mmHg) O2 Sat by Pulse 92 90 96 Oximetry 11/13/16 11/13/16 11/13/16 11:55 15:40 19:33 Temperature 97.6 F 97.5 F 97.5 F Pulse Rate 89 107 91 Respiratory 18 24 20 Rate Blood Pressure 133/69 126/62 119/54 (mmHg) O2 Sat by Pulse 96 98 95 Oximetry 11/13/16 11/14/16 11/14/16 20:00 00:00 04:20 Temperature 97.8 F 98.3 F Pulse Rate 134 82 Respiratory 20 17 16 Rate Blood Pressure 143/58 116/66 (mmHg) O2 Sat by Pulse 97 98 Oximetry Oxygen Devices in Use Now: Nasal Cannula - 5L Appearance: Alert, sitting up in bed. In good spirits. Looks comfortable. Eyes: No Scleral Icterus Neck: NL Appearance and Movements; NL JVP, No Thyroid Enlargement, Masses Respiratory: Symmetrical Chest Expansion and Respiratory Effort, Clear to Percussion, - - Diminished BS both bases Cardiovascular: NL Sounds; No Murmurs; No JVD, RRR, No Edema, - Extremities: No Edema, No Clubbing, Cyanosis, - Skin: No Rash or Ulcers, No Nodules or Sclerosis, - Neurological: Alert and Oriented x 3, NL Sensation Result Diagrams: 11/13/16 06:55 11/12/16 05:07 Additional Lab and Data: Lab Results 11/11/16 11/11/16 11/11/16 Range/Units 16:53 16:53 16:53 WBC 12.8 H (3.5-10.8) 10^3/ul RBC 4.33 (4.0-5.4) 10^6/ul Hgb 11.0 L (14.0-18.0) g/dl Hct 37 L (42-52) % MCV 85 (80-94) fL MCH 25 L (27-31) pg MCHC 30 L (31-36) g/dl RDW 18 H (10.5-15) % Plt Count 546 H D (150-450) 10^3/ul MPV 8 (7.4-10.4) um3 Neut % (Auto) 73.1 (38-83) % Lymph % (Auto) 18.8 L (25-47) % [place] % (Auto) 6.5 (1-9) % Eos % (Auto) 1.0 (0-6) % Baso % (Auto) 0.6 (0-2) % Absolute Neuts (auto) 9.3 H (1.5-7.7) 10^3/ul Absolute Lymphs (auto) 2.4 (1.0-4.8) 10^3/ul Absolute Monos (auto) 0.8 (0-0.8) 10^3/ul Absolute Eos (auto) 0.1 (0-0.6) 10^3/ul Absolute Basos (auto) 0.1 (0-0.2) 10^3/ul Absolute Nucleated RBC 0.02 10^3/ul Nucleated RBC % 0.1 Normal RBC Morphology Not Reportable Polychromasia 1+ Hypochromasia 2+ Macrocytosis 1+ [place] Cells 1+ INR (Anticoag Therapy) 1.33 H (0.89-1.11) APTT 26.5 (26.0-36.3) seconds Patient Temperature ABG pH (7.35-7.45) ABG pCO2 (35-45) mmHg ABG pO2 (80-100) mmHg ABG HCO3 (19-31) mmol/L ABG O2 Saturation (95-98) % ABG Base Excess (-2.0-2.0) Respiration Rate O2 Delivery Device Ventilator Type Vent Mode FiO2 Inspiratory Time PEEP Pressure Support Pressure Control EPAP IPAP BiPAP Sodium 139 (133-145) mmol/L Potassium 4.4 (3.5-5.0) mmol/L Chloride 99 L (101-111) mmol/L Carbon Dioxide 27 (22-32) mmol/L Anion Gap 13 H (2-11) mmol/L BUN 21 (6-24) mg/dL Creatinine 1.31 H (0.67-1.17) mg/dL Est GFR ( Amer) 67.4 (>60) Est GFR (Non-Af Amer) 52.4 (>60) BUN/Creatinine Ratio 16.0 (8-20) Glucose 315 H (70-100) mg/dL Lactic Acid (0.5-2.0) mmol/L Calcium 8.9 (8.6-10.3) mg/dL Magnesium 2.2 (1.9-2.7) mg/dL Total Bilirubin 0.80 (0.2-1.0) mg/dL AST 39 (13-39) U/L ALT 26 (7-52) U/L Alkaline Phosphatase 68 (34-104) U/L Total Creatine Kinase 115 (10-223) U/L CK-MB (CK-2) 8.6 H (0.6-6.3) ng/mL Troponin I 0.01 (<0.04) ng/mL C-Reactive Protein 22.58 H (< 5.00) mg/L B-Natriuretic Peptide ( - 100) pg/mL Total Protein 6.6 (6.4-8.9) g/dL Albumin 3.8 (3.2-5.2) g/dL Globulin 2.8 (2-4) g/dL Albumin/Globulin Ratio 1.4 (1-3) Lipase 49 (11.0-82.0) U/L TSH 2.58 (0.34-5.60) mcIU/mL 11/11/16 11/11/16 11/11/16 Range/Units 16:53 16:53 17:40 WBC (3.5-10.8) 10^3/ul RBC (4.0-5.4) 10^6/ul Hgb (14.0-18.0) g/dl Hct (42-52) % MCV (80-94) fL MCH (27-31) pg MCHC (31-36) g/dl RDW (10.5-15) % Plt Count (150-450) 10^3/ul MPV (7.4-10.4) um3 Neut % (Auto) (38-83) % Lymph % (Auto) (25-47) % [place] % (Auto) (1-9) % Eos % (Auto) (0-6) % Baso % (Auto) (0-2) % Absolute Neuts (auto) (1.5-7.7) 10^3/ul Absolute Lymphs (auto) (1.0-4.8) 10^3/ul Absolute Monos (auto) (0-0.8) 10^3/ul Absolute Eos (auto) (0-0.6) 10^3/ul Absolute Basos (auto) (0-0.2) 10^3/ul Absolute Nucleated RBC 10^3/ul Nucleated RBC % Normal RBC Morphology Polychromasia Hypochromasia Macrocytosis [place] Cells INR (Anticoag Therapy) (0.89-1.11) APTT (26.0-36.3) seconds Patient Temperature ABG pH 7.13 L* (7.35-7.45) ABG pCO2 84 H* (35-45) mmHg ABG pO2 229 H (80-100) mmHg ABG HCO3 23.0 (19-31) mmol/L ABG O2 Saturation 100.3 H (95-98) % ABG Base Excess -2.5 L (-2.0-2.0) Respiration Rate O2 Delivery Device Ventilator Type Vent Mode FiO2 Inspiratory Time PEEP Pressure Support Pressure Control EPAP IPAP BiPAP Sodium (133-145) mmol/L Potassium (3.5-5.0) mmol/L Chloride (101-111) mmol/L Carbon Dioxide (22-32) mmol/L Anion Gap (2-11) mmol/L BUN (6-24) mg/dL Creatinine (0.67-1.17) mg/dL Est GFR ( Amer) (>60) Est GFR (Non-Af Amer) (>60) BUN/Creatinine Ratio (8-20) Glucose (70-100) mg/dL Lactic Acid 7.9 H* (0.5-2.0) mmol/L Calcium (8.6-10.3) mg/dL Magnesium (1.9-2.7) mg/dL Total Bilirubin (0.2-1.0) mg/dL AST (13-39) U/L ALT (7-52) U/L Alkaline Phosphatase (34-104) U/L Total Creatine Kinase (10-223) U/L CK-MB (CK-2) (0.6-6.3) ng/mL Troponin I (<0.04) ng/mL C-Reactive Protein (< 5.00) mg/L B-Natriuretic Peptide 1503 H ( - 100) pg/mL Total Protein (6.4-8.9) g/dL Albumin (3.2-5.2) g/dL Globulin (2-4) g/dL Albumin/Globulin Ratio (1-3) Lipase (11.0-82.0) U/L TSH (0.34-5.60) mcIU/mL 11/11/16 Range/Units 19:01 WBC (3.5-10.8) 10^3/ul RBC (4.0-5.4) 10^6/ul Hgb (14.0-18.0) g/dl Hct (42-52) % MCV (80-94) fL MCH (27-31) pg MCHC (31-36) g/dl RDW (10.5-15) % Plt Count (150-450) 10^3/ul MPV (7.4-10.4) um3 Neut % (Auto) (38-83) % Lymph % (Auto) (25-47) % [place] % (Auto) (1-9) % Eos % (Auto) (0-6) % Baso % (Auto) (0-2) % Absolute Neuts (auto) (1.5-7.7) 10^3/ul Absolute Lymphs (auto) (1.0-4.8) 10^3/ul Absolute Monos (auto) (0-0.8) 10^3/ul Absolute Eos (auto) (0-0.6) 10^3/ul Absolute Basos (auto) (0-0.2) 10^3/ul Absolute Nucleated RBC 10^3/ul Nucleated RBC % Normal RBC Morphology Polychromasia Hypochromasia Macrocytosis [place] Cells INR (Anticoag Therapy) (0.89-1.11) APTT (26.0-36.3) seconds Patient Temperature Not Reportable ABG pH Pending (7.35-7.45) ABG pCO2 Pending (35-45) mmHg ABG pO2 Pending (80-100) mmHg ABG HCO3 Pending (19-31) mmol/L ABG O2 Saturation Pending (95-98) % ABG Base Excess Pending (-2.0-2.0) Respiration Rate Not Reportable O2 Delivery Device Bipap Ventilator Type Not Reportable Vent Mode Not Reportable FiO2 80 Inspiratory Time Not Reportable PEEP Not Reportable Pressure Support Not Reportable Pressure Control Not Reportable EPAP 5 IPAP 10 BiPAP Not Reportable Sodium (133-145) mmol/L Potassium (3.5-5.0) mmol/L Chloride (101-111) mmol/L Carbon Dioxide (22-32) mmol/L Anion Gap (2-11) mmol/L BUN (6-24) mg/dL Creatinine (0.67-1.17) mg/dL Est GFR ( Amer) (>60) Est GFR (Non-Af Amer) (>60) BUN/Creatinine Ratio (8-20) Glucose (70-100) mg/dL Lactic Acid (0.5-2.0) mmol/L Calcium (8.6-10.3) mg/dL Magnesium (1.9-2.7) mg/dL Total Bilirubin (0.2-1.0) mg/dL AST (13-39) U/L ALT (7-52) U/L Alkaline Phosphatase (34-104) U/L Total Creatine Kinase (10-223) U/L CK-MB (CK-2) (0.6-6.3) ng/mL Troponin I (<0.04) ng/mL C-Reactive Protein (< 5.00) mg/L B-Natriuretic Peptide ( - 100) pg/mL Total Protein (6.4-8.9) g/dL Albumin (3.2-5.2) g/dL Globulin (2-4) g/dL Albumin/Globulin Ratio (1-3) Lipase (11.0-82.0) U/L TSH (0.34-5.60) mcIU/mL Microbiology and Other Data: Microbiology 11/11/16 20:08 Nasal Screen MRSA (PCR)([facility]) - Final Nasal Mrsa Positive Assess/Plan/Problems-Billing Assessment: Acute on chronic combined hypoxic and hypercarbic respiratory failure 2/2 PTX in an 81 yo M with hx of HTN, CAD s/p PCI, ICM EF 30%, severe O2-dependent COPD , DM, pAF on xarelto and recent admission for respiratory failure requiring intubation 2/2 MRSA PNA with course complicated by PTX - Patient Problems (1) Acute respiratory failure with hypoxia and hypercarbia Current Visit: No Status: Acute Code(s): J96.01 - ACUTE RESPIRATORY FAILURE WITH HYPOXIA; J96.02 - ACUTE RESPIRATORY FAILURE WITH HYPERCAPNIA SNOMED Code( s): 42499592 Comment: With BL pleural effusion, CT. Improving. He may be near his new baseline. Pleural fluid C&S from 11/12 pending. (2) PAF (paroxysmal atrial fibrillation) Current Visit: No Status: Acute Code(s): I48.0 - PAROXYSMAL ATRIAL FIBRILLATION SNOMED Code(s): 579471310 Comment: Rate is controlled. Continue rivaroxaban. (3) Hypothyroid Current Visit: No Status: Acute Code(s): E03.9 - HYPOTHYROIDISM, UNSPECIFIED SNOMED Code(s): 96030329 Comment: Continue home dose of synthroid. TSH wnl 11/11/16. (4) CAD (coronary artery disease) Current Visit: No Status: Acute Code(s): I25.10 - ATHSCL HEART DISEASE OF [place] CORONARY ARTERY W/O ANG PCTRS SNOMED Code(s): 16003639 Comment: Continue clopidogrel. I will ask if/why he is not on ASA. He has not been able to tolerate statins. (5) Debility Current Visit: Yes Status: Acute Code(s): R53.81 - OTHER [place] SNOMED Code(s): 88488747 Comment: PT eval 11/13, limited mobility, did not walk at all due to SOB. Status and Disposition: Inpatient for respiratory failure, PTX
[2016-11-14] MEDS: Insulin LISPRO* 1 UNITS UNIT SUBCUT SCH ×3 (08:18→17:35)
[2016-11-14] MEDS: COENZYME Q10 200 MG PO SCH (08:32)
[2016-11-14] MEDS: Clopidogrel TAB* 75 MG PO SCH (08:34)
[2016-11-14] MEDS: PARoxetine HCL TAB* 10 MG PO SCH (08:34)
[2016-11-14] MEDS: Mometasone/Formoter 100/5 MDI INH SCH ×2 (08:48→19:42)
[2016-11-14] MEDS: Rivaroxaban TAB(*) 20 MG TAB PO SCH (17:35)
[2016-11-14] MEDS: Cetirizine* 10 MG TAB PO SCH (17:35)
--- NOTE | 2016-11-14 21:27 | PN ---
Progress Note - Progress Note SOAP: Late entry seen this am Subjective: Comfortable. No c/o pain. at bedside. Objective: Vital Signs Temp 98.0 F 11/14/16 19:18 Pulse 100 11/14/16 19:18 Resp 24 11/14/16 19:18 BP 129/70 11/14/16 19:18 Pulse Ox 94 11/14/16 19:18 Right chest tube intact to Pleurevac. no A/L noted. SS fluid in tube; o/p not well recorded. 11/14/16 11/14/16 11/15/16 06:59 18:59 06:59 Output Total 690 600 Balance -690 -600 Output: Urine 690 600 Other: Estimated Void Medium # Bowel Movements 0 1 Estimated Stool Amount Medium Assessment: Right PTX s/p Heimlich. Plan: Likely to d/c tube tomorrow if drainage minimal.
[2016-11-15] MEDS: Levothyroxine TAB* 100 MCG TAB PO SCH (05:43)
--- NOTE | 2016-11-15 06:27 | PN ---
Progress Note - Progress Note Note: Called to evaluate patient during CAT team call. Patient desaturated abruptly. Required 15% FM. Breath sounds decreased on Right side. Repeated CXR. NO PTX seen. Patient improved and back on 5 liter FM. Back to baseline. unclear reason for hypoxia. No further treatment at this time.
--- NOTE | 2016-11-15 08:08 | RAD ---
INDICATION: Hypoxia. COMPARISON: Comparison is made with prior chest x-ray studies from February 11, 2017. TECHNIQUE: A portable view of the chest was obtained. FINDINGS: The heart appears mildly enlarged and unchanged from the prior study. There is a Heimlich-type chest tube present on the right side. No pneumothorax is appreciated on this portable chest film. There is diffuse prominence of the interstitial markings which have progressed. There are small bibasilar infiltrates and small bilateral pleural effusions suggestive of congestive heart failure. IMPRESSION: FINDINGS SUGGESTIVE OF CONGESTIVE HEART FAILURE.
[2016-11-15] MEDS: PARoxetine HCL TAB* 10 MG PO SCH (08:44)
[2016-11-15] MEDS: Insulin LISPRO* 1 UNITS UNIT SUBCUT SCH ×3 (08:44→17:30)
[2016-11-15] MEDS: Clopidogrel TAB* 75 MG PO SCH (08:44)
[2016-11-15] MEDS: COENZYME Q10 200 MG PO SCH (09:11)
[2016-11-15] MEDS: Mometasone/Formoter 100/5 MDI INH SCH ×2 (09:59→20:17)
[2016-11-15] MEDS ORDERED: Furosemide IV* 10 MG/ML 2 ML VIAL (20 MG) IV ONE (10:21)
--- NOTE | 2016-11-15 10:35 | PN ---
Subjective Date of Service: 11/15/16 Interval History: No c/o. When asked, states his breathing is "good." Family History: Unchanged from Admission Social History: Unchanged from Admission Past Medical History: Unchanged from Admission Objective Active Medications: Albuterol (Ventolin 2.5 Mg/3 Ml Neb.Maria Luisa*) 2.5 mg INH .Q4-6H PRN PRN Reason: SHORTNESS OF BREATH Last Admin: 11/15/16 06:22 Dose: 2.5 mg Cetirizine HCl (Zyrtec*) 10 mg PO QPM [facility] Last Admin: 11/14/16 17:35 Dose: 10 mg Clopidogrel Bisulfate (Plavix Tab*) 75 mg PO DAILY [facility] Last Admin: 11/15/16 08:44 Dose: 75 mg Coenzyme Q10 (Coenzyme Q10 (Nf)) 2 cap PO DAILY [facility] Last Admin: 11/15/16 09:11 Dose: Not Given Dextrose (D50w Syringe 50 Ml*) 12.5 gm IV PUSH .FOR FS < 60 - SS PRN PRN Reason: FS < 60 Furosemide (Lasix Iv*) 20 mg IV ONCE ONE Stop: 11/15/16 10:22 Furosemide (Lasix Tab*) 20 mg PO DAILY [facility] Guaifenesin (Mucinex*) 600 mg PO BID PRN PRN Reason: CONGESTION Insulin Human Lispro (Humalog*) 0 - 5 units SUBCUT AC [facility] PRN Reason: Protocol Last Admin: 11/15/16 08:44 Dose: 1 units Ipratropium [place] (Atrovent 0.5 Mg Neb.Maria Luisa*) 0.5 mg INH BID PRN PRN Reason: SHORTNESS OF BREATH Levothyroxine Sodium (Synthroid Tab*) 100 mcg PO 0600 [facility] Last Admin: 11/15/16 05:43 Dose: 100 mcg Mometasone Furoate/Formoterol Fumar (Dulera 100/5 Mdi*) 2 puff INH BID [facility] Last Admin: 11/15/16 09:59 Dose: 2 puff Morphine Sulfate (Morphine Oral Concentrate*) 2 mg SL Q2H PRN PRN Reason: PAIN Paroxetine HCl (Paxil Tab*) 10 mg PO DAILY [facility] Last Admin: 11/15/16 08:44 Dose: 10 mg Rivaroxaban (Xarelto (*)) 20 mg PO DAILY@1700 [facility] Last Admin: 11/14/16 17:35 Dose: 20 mg Vital Signs 11/14/16 11/14/16 11/14/16 11:24 15:29 19:18 Temperature 97.4 F 98.0 F Pulse Rate 90 91 100 Respiratory 16 24 24 Rate Blood Pressure 115/61 110/88 129/70 (mmHg) O2 Sat by Pulse 98 96 94 Oximetry 11/14/16 11/14/16 11/15/16 20:00 23:39 03:43 Temperature 97.8 F 97.5 F Pulse Rate 107 88 Respiratory 16 16 16 Rate Blood Pressure 128/73 122/69 (mmHg) O2 Sat by Pulse 94 98 Oximetry 11/15/16 11/15/16 11/15/16 08:00 08:01 09:55 Temperature 97.9 F 97.9 F Pulse Rate 90 101 Respiratory 16 22 24 Rate Blood Pressure 118/63 132/69 (mmHg) O2 Sat by Pulse 95 94 Oximetry 11/15/16 10:03 Temperature Pulse Rate 100 Respiratory 16 Rate Blood Pressure (mmHg) O2 Sat by Pulse 90 Oximetry Oxygen Devices in Use Now: Nasal Cannula - 5L Appearance: Alert, partly up in bed. In good spirits. Looks comfortable. Eyes: No Scleral Icterus Ears/Nose/Mouth/Throat: Clear Oropharnyx, Mucous Membranes Moist Neck: No Thyroid Enlargement, Masses, - - JVD at 30 degrees. Respiratory: Symmetrical Chest Expansion and Respiratory Effort, Clear to Auscultation, Clear to Percussion Cardiovascular: NL Sounds; No Murmurs; No JVD, RRR, No Edema, - Extremities: No Edema, No Clubbing, Cyanosis, - Skin: No Rash or Ulcers, No Nodules or Sclerosis, - Neurological: Alert and Oriented x 3, NL Sensation Lines/Tubes/Other Access: Clean, Dry and Intact Chest Tube Result Diagrams: 11/13/16 06:55 11/12/16 05:07 Additional Lab and Data: Lab Results 11/11/16 11/11/16 11/11/16 Range/Units 16:53 16:53 16:53 WBC 12.8 H (3.5-10.8) 10^3/ul RBC 4.33 (4.0-5.4) 10^6/ul Hgb 11.0 L (14.0-18.0) g/dl Hct 37 L (42-52) % MCV 85 (80-94) fL MCH 25 L (27-31) pg MCHC 30 L (31-36) g/dl RDW 18 H (10.5-15) % Plt Count 546 H D (150-450) 10^3/ul MPV 8 (7.4-10.4) um3 Neut % (Auto) 73.1 (38-83) % Lymph % (Auto) 18.8 L (25-47) % [place] % (Auto) 6.5 (1-9) % Eos % (Auto) 1.0 (0-6) % Baso % (Auto) 0.6 (0-2) % Absolute Neuts (auto) 9.3 H (1.5-7.7) 10^3/ul Absolute Lymphs (auto) 2.4 (1.0-4.8) 10^3/ul Absolute Monos (auto) 0.8 (0-0.8) 10^3/ul Absolute Eos (auto) 0.1 (0-0.6) 10^3/ul Absolute Basos (auto) 0.1 (0-0.2) 10^3/ul Absolute Nucleated RBC 0.02 10^3/ul Nucleated RBC % 0.1 Normal RBC Morphology Not Reportable Polychromasia 1+ Hypochromasia 2+ Macrocytosis 1+ [place] Cells 1+ INR (Anticoag Therapy) 1.33 H (0.89-1.11) APTT 26.5 (26.0-36.3) seconds Patient Temperature ABG pH (7.35-7.45) ABG pCO2 (35-45) mmHg ABG pO2 (80-100) mmHg ABG HCO3 (19-31) mmol/L ABG O2 Saturation (95-98) % ABG Base Excess (-2.0-2.0) Respiration Rate O2 Delivery Device Ventilator Type Vent Mode FiO2 Inspiratory Time PEEP Pressure Support Pressure Control EPAP IPAP BiPAP Sodium 139 (133-145) mmol/L Potassium 4.4 (3.5-5.0) mmol/L Chloride 99 L (101-111) mmol/L Carbon Dioxide 27 (22-32) mmol/L Anion Gap 13 H (2-11) mmol/L BUN 21 (6-24) mg/dL Creatinine 1.31 H (0.67-1.17) mg/dL Est GFR ( Amer) 67.4 (>60) Est GFR (Non-Af Amer) 52.4 (>60) BUN/Creatinine Ratio 16.0 (8-20) Glucose 315 H (70-100) mg/dL Lactic Acid (0.5-2.0) mmol/L Calcium 8.9 (8.6-10.3) mg/dL Magnesium 2.2 (1.9-2.7) mg/dL Total Bilirubin 0.80 (0.2-1.0) mg/dL AST 39 (13-39) U/L ALT 26 (7-52) U/L Alkaline Phosphatase 68 (34-104) U/L Total Creatine Kinase 115 (10-223) U/L CK-MB (CK-2) 8.6 H (0.6-6.3) ng/mL Troponin I 0.01 (<0.04) ng/mL C-Reactive Protein 22.58 H (< 5.00) mg/L B-Natriuretic Peptide ( - 100) pg/mL Total Protein 6.6 (6.4-8.9) g/dL Albumin 3.8 (3.2-5.2) g/dL Globulin 2.8 (2-4) g/dL Albumin/Globulin Ratio 1.4 (1-3) Lipase 49 (11.0-82.0) U/L TSH 2.58 (0.34-5.60) mcIU/mL 11/11/16 11/11/16 11/11/16 Range/Units 16:53 16:53 17:40 WBC (3.5-10.8) 10^3/ul RBC (4.0-5.4) 10^6/ul Hgb (14.0-18.0) g/dl Hct (42-52) % MCV (80-94) fL MCH (27-31) pg MCHC (31-36) g/dl RDW (10.5-15) % Plt Count (150-450) 10^3/ul MPV (7.4-10.4) um3 Neut % (Auto) (38-83) % Lymph % (Auto) (25-47) % [place] % (Auto) (1-9) % Eos % (Auto) (0-6) % Baso % (Auto) (0-2) % Absolute Neuts (auto) (1.5-7.7) 10^3/ul Absolute Lymphs (auto) (1.0-4.8) 10^3/ul Absolute Monos (auto) (0-0.8) 10^3/ul Absolute Eos (auto) (0-0.6) 10^3/ul Absolute Basos (auto) (0-0.2) 10^3/ul Absolute Nucleated RBC 10^3/ul Nucleated RBC % Normal RBC Morphology Polychromasia Hypochromasia Macrocytosis [place] Cells INR (Anticoag Therapy) (0.89-1.11) APTT (26.0-36.3) seconds Patient Temperature ABG pH 7.13 L* (7.35-7.45) ABG pCO2 84 H* (35-45) mmHg ABG pO2 229 H (80-100) mmHg ABG HCO3 23.0 (19-31) mmol/L ABG O2 Saturation 100.3 H (95-98) % ABG Base Excess -2.5 L (-2.0-2.0) Respiration Rate O2 Delivery Device Ventilator Type Vent Mode FiO2 Inspiratory Time PEEP Pressure Support Pressure Control EPAP IPAP BiPAP Sodium (133-145) mmol/L Potassium (3.5-5.0) mmol/L Chloride (101-111) mmol/L Carbon Dioxide (22-32) mmol/L Anion Gap (2-11) mmol/L BUN (6-24) mg/dL Creatinine (0.67-1.17) mg/dL Est GFR ( Amer) (>60) Est GFR (Non-Af Amer) (>60) BUN/Creatinine Ratio (8-20) Glucose (70-100) mg/dL Lactic Acid 7.9 H* (0.5-2.0) mmol/L Calcium (8.6-10.3) mg/dL Magnesium (1.9-2.7) mg/dL Total Bilirubin (0.2-1.0) mg/dL AST (13-39) U/L ALT (7-52) U/L Alkaline Phosphatase (34-104) U/L Total Creatine Kinase (10-223) U/L CK-MB (CK-2) (0.6-6.3) ng/mL Troponin I (<0.04) ng/mL C-Reactive Protein (< 5.00) mg/L B-Natriuretic Peptide 1503 H ( - 100) pg/mL Total Protein (6.4-8.9) g/dL Albumin (3.2-5.2) g/dL Globulin (2-4) g/dL Albumin/Globulin Ratio (1-3) Lipase (11.0-82.0) U/L TSH (0.34-5.60) mcIU/mL 11/11/16 Range/Units 19:01 WBC (3.5-10.8) 10^3/ul RBC (4.0-5.4) 10^6/ul Hgb (14.0-18.0) g/dl Hct (42-52) % MCV (80-94) fL MCH (27-31) pg MCHC (31-36) g/dl RDW (10.5-15) % Plt Count (150-450) 10^3/ul MPV (7.4-10.4) um3 Neut % (Auto) (38-83) % Lymph % (Auto) (25-47) % [place] % (Auto) (1-9) % Eos % (Auto) (0-6) % Baso % (Auto) (0-2) % Absolute Neuts (auto) (1.5-7.7) 10^3/ul Absolute Lymphs (auto) (1.0-4.8) 10^3/ul Absolute Monos (auto) (0-0.8) 10^3/ul Absolute Eos (auto) (0-0.6) 10^3/ul Absolute Basos (auto) (0-0.2) 10^3/ul Absolute Nucleated RBC 10^3/ul Nucleated RBC % Normal RBC Morphology Polychromasia Hypochromasia Macrocytosis [place] Cells INR (Anticoag Therapy) (0.89-1.11) APTT (26.0-36.3) seconds Patient Temperature Not Reportable ABG pH Pending (7.35-7.45) ABG pCO2 Pending (35-45) mmHg ABG pO2 Pending (80-100) mmHg ABG HCO3 Pending (19-31) mmol/L ABG O2 Saturation Pending (95-98) % ABG Base Excess Pending (-2.0-2.0) Respiration Rate Not Reportable O2 Delivery Device Bipap Ventilator Type Not Reportable Vent Mode Not Reportable FiO2 80 Inspiratory Time Not Reportable PEEP Not Reportable Pressure Support Not Reportable Pressure Control Not Reportable EPAP 5 IPAP 10 BiPAP Not Reportable Sodium (133-145) mmol/L Potassium (3.5-5.0) mmol/L Chloride (101-111) mmol/L Carbon Dioxide (22-32) mmol/L Anion Gap (2-11) mmol/L BUN (6-24) mg/dL Creatinine (0.67-1.17) mg/dL Est GFR ( Amer) (>60) Est GFR (Non-Af Amer) (>60) BUN/Creatinine Ratio (8-20) Glucose (70-100) mg/dL Lactic Acid (0.5-2.0) mmol/L Calcium (8.6-10.3) mg/dL Magnesium (1.9-2.7) mg/dL Total Bilirubin (0.2-1.0) mg/dL AST (13-39) U/L ALT (7-52) U/L Alkaline Phosphatase (34-104) U/L Total Creatine Kinase (10-223) U/L CK-MB (CK-2) (0.6-6.3) ng/mL Troponin I (<0.04) ng/mL C-Reactive Protein (< 5.00) mg/L B-Natriuretic Peptide ( - 100) pg/mL Total Protein (6.4-8.9) g/dL Albumin (3.2-5.2) g/dL Globulin (2-4) g/dL Albumin/Globulin Ratio (1-3) Lipase (11.0-82.0) U/L TSH (0.34-5.60) mcIU/mL Microbiology and Other Data: Microbiology 11/11/16 20:08 Nasal Screen MRSA (PCR)([facility]) - Final Nasal Mrsa Positive Assess/Plan/Problems-Billing Assessment: 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 Improving. He may be near his new baseline. Pleural fluid C&S from 11/12 no growth day 3. (2) PAF (paroxysmal atrial fibrillation) Current Visit: No Status: Acute Code(s): I48.0 - PAROXYSMAL ATRIAL FIBRILLATION SNOMED Code(s): 547692433 Comment: Rate is controlled. Continue rivaroxaban. (3) Hypothyroid Current Visit: No Status: Acute Code(s): E03.9 - HYPOTHYROIDISM, UNSPECIFIED SNOMED Code(s): 88687864 Comment: Continue home dose of synthroid. TSH wnl 11/11/16. (4) CAD (coronary artery disease) Current Visit: No Status: Acute Code(s): I25.10 - ATHSCL HEART DISEASE OF [place] CORONARY ARTERY W/O ANG PCTRS SNOMED Code(s): 99714501 Comment: Continue clopidogrel. I will ask if/why he is not on ASA. He has not been able to tolerate statins. (5) Debility Current Visit: Yes Status: Acute Code(s): R53.81 - OTHER MALAISE SNOMED Code(s): 04406010 Comment: PT eval 11/13, limited mobility, did not walk at all due to SOB. (6) Ischemic cardiomyopathy Current Visit: Yes Status: Acute Code(s): I25.5 - ISCHEMIC CARDIOMYOPATHY SNOMED Code(s): 798683822 Comment: LVEF 35% 08/2015. BNP 1503 11/11/16. Start furosemide 11/15, 20 mg IV first day then 20 mg po daily. BMP 11/16/16. Status and Disposition: Inpatient for respiratory failure, PTX
[2016-11-15] MEDS: Rivaroxaban TAB(*) 20 MG TAB PO SCH (17:28)
[2016-11-15] MEDS: Cetirizine* 10 MG TAB PO SCH (17:29)
[2016-11-16] MEDS: Metoprolol Tartrate TAB* 25 MG PO SCH ×3 (01:34→21:04)
[2016-11-16] MEDS: Levothyroxine TAB* 100 MCG TAB PO SCH (06:05)
[2016-11-16 07:06] LABS: BUN/Creatinine Ratio 18.7 (8-20); Calcium 8.7 mg/dL (8.6-10.3); EGFR African American 128.2 (>60); EGFR Non-African American 99.7 (>60); Potassium 4.4 mmol/L (3.5-5.0)
[2016-11-16] MEDS: Furosemide TAB* 20 MG PO SCH (07:35)
[2016-11-16] MEDS: Clopidogrel TAB* 75 MG PO SCH (07:35)
[2016-11-16] MEDS: PARoxetine HCL TAB* 10 MG PO SCH (07:35)
[2016-11-16] MEDS: Insulin LISPRO* 1 UNITS UNIT SUBCUT SCH ×3 (07:40→17:04)
[2016-11-16] MEDS: COENZYME Q10 200 MG PO SCH (07:40)
[2016-11-16] MEDS: Mometasone/Formoter 100/5 MDI INH SCH ×2 (07:58→20:04)
--- NOTE | 2016-11-16 09:28 | PN ---
Progress Note - Progress Note SOAP: Subjective: Reports feeling better, no SOB this AM. Still has Heimlich tube intact to R upper chest and connected to water seal.. Objective: VSS, afebrile Lungs with decreased breath sounds bilat. No rales or rhonchi CXR yesterday suggestive of CHF, no PTX noted. Assessment: An 81 y/o male with complicated PMH, admitted for respiratory failure, pneumonia and resolved R PTX Plan: Will discuss with Dr. Terry. I think Heimlich chest tube could be d/c'ed, unless further procedures are indicated. He R PTX seems to be resolved at this time.
--- NOTE | 2016-11-16 10:01 | PN ---
Subjective Date of Service: 11/16/16 Interval History: No c/o. Anxious to go home. Family History: Unchanged from Admission Social History: Unchanged from Admission Past Medical History: Unchanged from Admission Objective Active Medications: Albuterol (Ventolin 2.5 Mg/3 Ml Neb.Maria Luisa*) 2.5 mg INH .Q4-6H PRN PRN Reason: SHORTNESS OF BREATH Last Admin: 11/15/16 06:22 Dose: 2.5 mg Cetirizine HCl (Zyrtec*) 10 mg PO QPM [facility] Last Admin: 11/15/16 17:29 Dose: 10 mg Clopidogrel Bisulfate (Plavix Tab*) 75 mg PO DAILY [facility] Last Admin: 11/16/16 07:35 Dose: 75 mg Coenzyme Q10 (Coenzyme Q10 (Nf)) 2 cap PO DAILY [facility] Last Admin: 11/16/16 07:40 Dose: Not Given Dextrose (D50w Syringe 50 Ml*) 12.5 gm IV PUSH .FOR FS < 60 - SS PRN PRN Reason: FS < 60 Furosemide (Lasix Tab*) 20 mg PO DAILY [facility] Last Admin: 11/16/16 07:35 Dose: 20 mg Guaifenesin (Mucinex*) 600 mg PO BID PRN PRN Reason: CONGESTION Insulin Human Lispro (Humalog*) 0 - 5 units SUBCUT AC [facility] PRN Reason: Protocol Last Admin: 11/16/16 07:40 Dose: Not Given Ipratropium [place] (Atrovent 0.5 Mg Neb.Maria Luisa*) 0.5 mg INH BID PRN PRN Reason: SHORTNESS OF BREATH Levothyroxine Sodium (Synthroid Tab*) 100 mcg PO 0600 [facility] Last Admin: 11/16/16 06:05 Dose: 100 mcg Metoprolol Tartrate (Lopressor Tab*) 12.5 mg PO Q12HR [facility] Last Admin: 11/16/16 07:35 Dose: 12.5 mg Mometasone Furoate/Formoterol Fumar (Dulera 100/5 Mdi*) 2 puff INH BID [facility] Last Admin: 11/16/16 07:58 Dose: 2 puff Morphine Sulfate (Morphine Oral Concentrate*) 2 mg SL Q2H PRN PRN Reason: PAIN Paroxetine HCl (Paxil Tab*) 10 mg PO DAILY [facility] Last Admin: 11/16/16 07:35 Dose: 10 mg Rivaroxaban (Xarelto (*)) 20 mg PO DAILY@1700 [facility] Last Admin: 11/15/16 17:28 Dose: 20 mg Vital Signs 11/15/16 11/15/16 11/15/16 09:55 10:03 15:50 Temperature 97.9 F 98.3 F Pulse Rate 101 100 94 Respiratory 24 16 24 Rate Blood Pressure 132/69 107/57 (mmHg) O2 Sat by Pulse 94 90 100 Oximetry 11/15/16 11/15/16 11/15/16 19:18 20:19 21:37 Temperature 97.3 F Pulse Rate 92 92 Respiratory 22 22 Rate Blood Pressure 111/55 (mmHg) O2 Sat by Pulse 92 93 Oximetry 11/16/16 11/16/16 11/16/16 03:38 07:30 08:03 Temperature 98.0 F 98.0 F Pulse Rate 157 102 62 Respiratory 17 18 Rate Blood Pressure 139/68 134/73 (mmHg) O2 Sat by Pulse 94 97 94 Oximetry 11/16/16 08:45 Temperature Pulse Rate Respiratory 18 Rate Blood Pressure (mmHg) O2 Sat by Pulse Oximetry Oxygen Devices in Use Now: Nasal Cannula - 5L Appearance: Alert, in a chair. In good spirits. Looks comfortable. Eyes: No Scleral Icterus Neck: NL Appearance and Movements; NL JVP, No Thyroid Enlargement, Masses Respiratory: Symmetrical Chest Expansion and Respiratory Effort, Clear to Auscultation, Clear to Percussion Cardiovascular: NL Sounds; No Murmurs; No JVD, RRR, No Edema, - Extremities: No Edema, No Clubbing, Cyanosis, - Skin: No Rash or Ulcers, No Nodules or Sclerosis, - Neurological: Alert and Oriented x 3, NL Sensation Result Diagrams: 11/13/16 06:55 11/16/16 06:05 Additional Lab and Data: Lab Results 11/11/16 11/11/16 11/11/16 Range/Units 16:53 16:53 16:53 WBC 12.8 H (3.5-10.8) 10^3/ul RBC 4.33 (4.0-5.4) 10^6/ul Hgb 11.0 L (14.0-18.0) g/dl Hct 37 L (42-52) % MCV 85 (80-94) fL MCH 25 L (27-31) pg MCHC 30 L (31-36) g/dl RDW 18 H (10.5-15) % Plt Count 546 H D (150-450) 10^3/ul MPV 8 (7.4-10.4) um3 Neut % (Auto) 73.1 (38-83) % Lymph % (Auto) 18.8 L (25-47) % [place] % (Auto) 6.5 (1-9) % Eos % (Auto) 1.0 (0-6) % Baso % (Auto) 0.6 (0-2) % Absolute Neuts (auto) 9.3 H (1.5-7.7) 10^3/ul Absolute Lymphs (auto) 2.4 (1.0-4.8) 10^3/ul Absolute Monos (auto) 0.8 (0-0.8) 10^3/ul Absolute Eos (auto) 0.1 (0-0.6) 10^3/ul Absolute Basos (auto) 0.1 (0-0.2) 10^3/ul Absolute Nucleated RBC 0.02 10^3/ul Nucleated RBC % 0.1 Normal RBC Morphology Not Reportable Polychromasia 1+ Hypochromasia 2+ Macrocytosis 1+ Daisy Cells 1+ INR (Anticoag Therapy) 1.33 H (0.89-1.11) APTT 26.5 (26.0-36.3) seconds Patient Temperature ABG pH (7.35-7.45) ABG pCO2 (35-45) mmHg ABG pO2 (80-100) mmHg ABG HCO3 (19-31) mmol/L ABG O2 Saturation (95-98) % ABG Base Excess (-2.0-2.0) Respiration Rate O2 Delivery Device Ventilator Type Vent Mode FiO2 Inspiratory Time PEEP Pressure Support Pressure Control EPAP IPAP BiPAP Sodium 139 (133-145) mmol/L Potassium 4.4 (3.5-5.0) mmol/L Chloride 99 L (101-111) mmol/L Carbon Dioxide 27 (22-32) mmol/L Anion Gap 13 H (2-11) mmol/L BUN 21 (6-24) mg/dL Creatinine 1.31 H (0.67-1.17) mg/dL Est GFR ( Amer) 67.4 (>60) Est GFR (Non-Af Amer) 52.4 (>60) BUN/Creatinine Ratio 16.0 (8-20) Glucose 315 H (70-100) mg/dL Lactic Acid (0.5-2.0) mmol/L Calcium 8.9 (8.6-10.3) mg/dL Magnesium 2.2 (1.9-2.7) mg/dL Total Bilirubin 0.80 (0.2-1.0) mg/dL AST 39 (13-39) U/L ALT 26 (7-52) U/L Alkaline Phosphatase 68 (34-104) U/L Total Creatine Kinase 115 (10-223) U/L CK-MB (CK-2) 8.6 H (0.6-6.3) ng/mL Troponin I 0.01 (<0.04) ng/mL C-Reactive Protein 22.58 H (< 5.00) mg/L B-Natriuretic Peptide ( - 100) pg/mL Total Protein 6.6 (6.4-8.9) g/dL Albumin 3.8 (3.2-5.2) g/dL Globulin 2.8 (2-4) g/dL Albumin/Globulin Ratio 1.4 (1-3) Lipase 49 (11.0-82.0) U/L TSH 2.58 (0.34-5.60) mcIU/mL 11/11/16 11/11/16 11/11/16 Range/Units 16:53 16:53 17:40 WBC (3.5-10.8) 10^3/ul RBC (4.0-5.4) 10^6/ul Hgb (14.0-18.0) g/dl Hct (42-52) % MCV (80-94) fL MCH (27-31) pg MCHC (31-36) g/dl RDW (10.5-15) % Plt Count (150-450) 10^3/ul MPV (7.4-10.4) um3 Neut % (Auto) (38-83) % Lymph % (Auto) (25-47) % [place] % (Auto) (1-9) % Eos % (Auto) (0-6) % Baso % (Auto) (0-2) % Absolute Neuts (auto) (1.5-7.7) 10^3/ul Absolute Lymphs (auto) (1.0-4.8) 10^3/ul Absolute Monos (auto) (0-0.8) 10^3/ul Absolute Eos (auto) (0-0.6) 10^3/ul Absolute Basos (auto) (0-0.2) 10^3/ul Absolute Nucleated RBC 10^3/ul Nucleated RBC % Normal RBC Morphology Polychromasia Hypochromasia Macrocytosis [place] Cells INR (Anticoag Therapy) (0.89-1.11) APTT (26.0-36.3) seconds Patient Temperature ABG pH 7.13 L* (7.35-7.45) ABG pCO2 84 H* (35-45) mmHg ABG pO2 229 H (80-100) mmHg ABG HCO3 23.0 (19-31) mmol/L ABG O2 Saturation 100.3 H (95-98) % ABG Base Excess -2.5 L (-2.0-2.0) Respiration Rate O2 Delivery Device Ventilator Type Vent Mode FiO2 Inspiratory Time PEEP Pressure Support Pressure Control EPAP IPAP BiPAP Sodium (133-145) mmol/L Potassium (3.5-5.0) mmol/L Chloride (101-111) mmol/L Carbon Dioxide (22-32) mmol/L Anion Gap (2-11) mmol/L BUN (6-24) mg/dL Creatinine (0.67-1.17) mg/dL Est GFR ( Amer) (>60) Est GFR (Non-Af Amer) (>60) BUN/Creatinine Ratio (8-20) Glucose (70-100) mg/dL Lactic Acid 7.9 H* (0.5-2.0) mmol/L Calcium (8.6-10.3) mg/dL Magnesium (1.9-2.7) mg/dL Total Bilirubin (0.2-1.0) mg/dL AST (13-39) U/L ALT (7-52) U/L Alkaline Phosphatase (34-104) U/L Total Creatine Kinase (10-223) U/L CK-MB (CK-2) (0.6-6.3) ng/mL Troponin I (<0.04) ng/mL C-Reactive Protein (< 5.00) mg/L B-Natriuretic Peptide 1503 H ( - 100) pg/mL Total Protein (6.4-8.9) g/dL Albumin (3.2-5.2) g/dL Globulin (2-4) g/dL Albumin/Globulin Ratio (1-3) Lipase (11.0-82.0) U/L TSH (0.34-5.60) mcIU/mL 11/11/16 Range/Units 19:01 WBC (3.5-10.8) 10^3/ul RBC (4.0-5.4) 10^6/ul Hgb (14.0-18.0) g/dl Hct (42-52) % MCV (80-94) fL MCH (27-31) pg MCHC (31-36) g/dl RDW (10.5-15) % Plt Count (150-450) 10^3/ul MPV (7.4-10.4) um3 Neut % (Auto) (38-83) % Lymph % (Auto) (25-47) % [place] % (Auto) (1-9) % Eos % (Auto) (0-6) % Baso % (Auto) (0-2) % Absolute Neuts (auto) (1.5-7.7) 10^3/ul Absolute Lymphs (auto) (1.0-4.8) 10^3/ul Absolute Monos (auto) (0-0.8) 10^3/ul Absolute Eos (auto) (0-0.6) 10^3/ul Absolute Basos (auto) (0-0.2) 10^3/ul Absolute Nucleated RBC 10^3/ul Nucleated RBC % Normal RBC Morphology Polychromasia Hypochromasia Macrocytosis [place] Cells INR (Anticoag Therapy) (0.89-1.11) APTT (26.0-36.3) seconds Patient Temperature Not Reportable ABG pH Pending (7.35-7.45) ABG pCO2 Pending (35-45) mmHg ABG pO2 Pending (80-100) mmHg ABG HCO3 Pending (19-31) mmol/L ABG O2 Saturation Pending (95-98) % ABG Base Excess Pending (-2.0-2.0) Respiration Rate Not Reportable O2 Delivery Device Bipap Ventilator Type Not Reportable Vent Mode Not Reportable FiO2 80 Inspiratory Time Not Reportable PEEP Not Reportable Pressure Support Not Reportable Pressure Control Not Reportable EPAP 5 IPAP 10 BiPAP Not Reportable Sodium (133-145) mmol/L Potassium (3.5-5.0) mmol/L Chloride (101-111) mmol/L Carbon Dioxide (22-32) mmol/L Anion Gap (2-11) mmol/L BUN (6-24) mg/dL Creatinine (0.67-1.17) mg/dL Est GFR ( Amer) (>60) Est GFR (Non-Af Amer) (>60) BUN/Creatinine Ratio (8-20) Glucose (70-100) mg/dL Lactic Acid (0.5-2.0) mmol/L Calcium (8.6-10.3) mg/dL Magnesium (1.9-2.7) mg/dL Total Bilirubin (0.2-1.0) mg/dL AST (13-39) U/L ALT (7-52) U/L Alkaline Phosphatase (34-104) U/L Total Creatine Kinase (10-223) U/L CK-MB (CK-2) (0.6-6.3) ng/mL Troponin I (<0.04) ng/mL C-Reactive Protein (< 5.00) mg/L B-Natriuretic Peptide ( - 100) pg/mL Total Protein (6.4-8.9) g/dL Albumin (3.2-5.2) g/dL Globulin (2-4) g/dL Albumin/Globulin Ratio (1-3) Lipase (11.0-82.0) U/L TSH (0.34-5.60) mcIU/mL Microbiology and Other Data: Microbiology 11/11/16 20:08 Nasal Screen MRSA (PCR)([facility]) - Final Nasal Mrsa Positive Assess/Plan/Problems-Billing Assessment: Acute on chronic combined hypoxic and hypercarbic respiratory failure 2/2 PTX in an 81 yo M with hx of HTN, CAD s/p PCI, ICM EF 30%, severe O2-dependent COPD , DM, pAF on xarelto and recent admission for respiratory failure requiring intubation 2/2 MRSA PNA with course complicated by PTX - Patient Problems (1) Acute respiratory failure with hypoxia and hypercarbia Current Visit: No Status: Acute Code(s): J96.01 - ACUTE RESPIRATORY FAILURE WITH HYPOXIA; J96.02 - ACUTE RESPIRATORY FAILURE WITH HYPERCAPNIA SNOMED Code( s): 67924253 Comment: With BL pleural effusion, CT. Improving. He may be near his new baseline. Pleural fluid C&S from 11/12 no growth day 4. Awaiting removal of CT. (2) PAF (paroxysmal atrial fibrillation) Current Visit: No Status: Acute Code(s): I48.0 - PAROXYSMAL ATRIAL FIBRILLATION SNOMED Code(s): 834430545 Comment: Rate is controlled. Continue rivaroxaban. (3) Hypothyroid Current Visit: No Status: Acute Code(s): E03.9 - HYPOTHYROIDISM, UNSPECIFIED SNOMED Code(s): 49485462 Comment: Continue home dose of synthroid. TSH wnl 11/11/16. (4) CAD (coronary artery disease) Current Visit: No Status: Acute Code(s): I25.10 - ATHSCL HEART DISEASE OF [place] CORONARY ARTERY W/O ANG PCTRS SNOMED Code(s): 38983092 Comment: Continue clopidogrel. states he is not on ASA per Dr. Munoz' s recommendation. He has not been able to tolerate statins. (5) Debility Current Visit: Yes Status: Acute Code(s): R53.81 - OTHER [place] SNOMED Code(s): 44936308 Comment: PT eval 11/13, limited mobility, did not walk at all due to SOB. (6) Ischemic cardiomyopathy Current Visit: Yes Status: Acute Code(s): I25.5 - ISCHEMIC CARDIOMYOPATHY SNOMED Code(s): 934443542 Comment: LVEF 35% 08/2015. BNP 1503 11/11/16. Started furosemide 11/15, 20 mg IV first day then 20 mg po daily. BMP planned about 11/19. Status and Disposition: Inpatient for respiratory failure, PTX
--- NOTE | 2016-11-16 15:25 | PN ---
Progress Note - Progress Note Note: Palliative Care Follow up Note: Patient now out of the ICU. States his breathing is better. Worked with PT today and was able to get to the bathroom with the walker and assistance. Discussed rehab with him and he would like to go home with VNS services. Discussed hospice again and that it would provide more services for him at home. He and his spoke about it and they are not interested in hospice at this time. Asked again if could bring in MOLST form as they believe it is DNR and trial intubation. She will bring it in. Asked again if he were to have respiratory failure if he would want to get intubated again. He did not seem to want to but the was not sure and they agreed to discuss this amongst themselves.
[2016-11-16] MEDS: Cetirizine* 10 MG TAB PO SCH (17:04)
[2016-11-16] MEDS: Rivaroxaban TAB(*) 20 MG TAB PO SCH (17:04)
[2016-11-16] MEDS: guaiFENesin ER TAB 600 MG PO PRN (17:06)
--- NOTE | 2016-11-16 18:35 | PN ---
Progress Note - Progress Note Note: Pulm consult f/u note 11/16/16. Pt seen and examined at bedside. Reports improvement in breathing, had SOB yesterday, still needing 5L O2 Active Medications Generic Name Dose Route Start Last Admin Trade Name Freq PRN Reason Stop Dose Admin Albuterol 2.5 mg 11/11/16 18:41 11/15/16 06:22 Ventolin 2.5 Mg/3 Ml Neb.Maria Luisa* INH 2.5 mg .Q4-6H PRN Administration SHORTNESS OF BREATH Cetirizine HCl 10 mg 11/12/16 18:00 11/16/16 17:04 Zyrtec* PO 10 mg QPM BRYN Administration Clopidogrel Bisulfate 75 mg 11/12/16 09:00 11/16/16 07:35 Plavix Tab* PO 75 mg DAILY BRYN Administration Coenzyme Q10 2 cap 11/12/16 09:00 11/16/16 07:40 Coenzyme Q10 (Nf) PO Not Given DAILY BRYN Dextrose 12.5 gm 11/12/16 08:57 D50w Syringe 50 Ml* IV PUSH .FOR FS < 60 - SS PRN FS < 60 Furosemide 20 mg 11/16/16 09:00 11/16/16 07:35 Lasix Tab* PO 20 mg DAILY BRYN Administration Guaifenesin 600 mg 11/12/16 09:00 11/16/16 17:06 Mucinex* PO 600 mg BID PRN Administration CONGESTION Insulin Human Lispro 0 - 5 units 11/12/16 11:30 11/16/16 17:04 Humalog* SUBCUT Not Given AC BRYN Protocol Ipratropium [place] 0.5 mg 11/11/16 18:41 Atrovent 0.5 Mg Neb.Maria Luisa* INH BID PRN SHORTNESS OF BREATH Levothyroxine Sodium 100 mcg 11/12/16 06:00 11/16/16 06:05 Synthroid Tab* PO 100 mcg 0600 BRYN Administration Metoprolol Tartrate 12.5 mg 11/15/16 21:00 11/16/16 07:35 Lopressor Tab* PO 12.5 mg Q12HR BRYN Administration Mometasone Furoate/Formoterol Fumar 2 puff 11/12/16 09:00 11/16/16 07:58 Dulera 100/5 Mdi* INH 2 puff BID BRYN Administration Morphine Sulfate 2 mg 11/12/16 16:01 Morphine Oral Concentrate* SL Q2H PRN PAIN Paroxetine HCl 10 mg 11/12/16 09:00 11/16/16 07:35 Paxil Tab* PO 10 mg DAILY BRYN Administration Rivaroxaban 20 mg 11/12/16 17:00 11/16/16 17:04 Xarelto (*) PO 20 mg DAILY@1700 BRYN Administration Vital Signs Temp Pulse Resp BP Pulse Ox 97.6 F 85 28 118/48 98 11/16/16 15:46 11/16/16 15:46 11/16/16 15:46 11/16/16 15:46 11/16/16 15:46 Gen: Alert,in NAD. HEENT: PERRLA, No Scleral Icterus Neck: NL Appearance and Movements; NL JVP, No Thyroid Enlargement, Masses Respiratory: Symmetrical Chest Expansion and Respiratory Effort, Clear to Auscultation, diminished a/e b/l Cardiovascular: NL Sounds; No Murmurs; No JVD, RRR, No Edema Extremities: No Edema, No Clubbing, Cyanosis Skin: No Rash or Ulcers, No Nodules or Sclerosis Neurological: Alert and Oriented x 3 Laboratory Results - last 24 hr 11/15/16 11/16/16 11/16/16 23:02 06:05 07:31 Sodium 142 Potassium 4.4 Chloride 105 Carbon Dioxide 34 H Anion Gap 3 BUN 14 Creatinine 0.75 Est GFR ( Amer) 128.2 Est GFR (Non-Af Amer) 99.7 BUN/Creatinine Ratio 18.7 Glucose 128 H POC Glucose (mg/dL) 140 H 142 H Calcium 8.7 11/16/16 11/16/16 11:40 16:33 Sodium Potassium Chloride Carbon Dioxide Anion Gap BUN Creatinine Est GFR ( Amer) Est GFR (Non-Af Amer) BUN/Creatinine Ratio Glucose POC Glucose (mg/dL) 167 H 114 H Calcium I/R: 81 y o m with h/o laryngeal ca, COPD a/w recurrent PTX, s/p chest tube placement Pt with no air leak through Heimlich Has b/l effusions R>L Will perform thoracentesis tomorrow given hypoxia and requiring 5L O2 Can remove chest tube after pleural tap PT/OT bronchodilators Pt and not wanting palliative care at this point D/w Dr Terry regarding pleurodesis, given associated risks it was decided to watch for recurrence and then consider pleurodesis
[2016-11-17] MEDS: Levothyroxine TAB* 100 MCG TAB PO SCH (05:07)
[2016-11-17] MEDS: Insulin LISPRO* 1 UNITS UNIT SUBCUT SCH ×3 (07:45→17:25)
[2016-11-17] MEDS: Clopidogrel TAB* 75 MG PO SCH (07:46)
[2016-11-17] MEDS: Metoprolol Tartrate TAB* 25 MG PO SCH (07:49)
[2016-11-17] MEDS: Furosemide TAB* 20 MG PO SCH (08:05)
[2016-11-17] MEDS: PARoxetine HCL TAB* 10 MG PO SCH (08:05)
[2016-11-17] MEDS: COENZYME Q10 200 MG PO SCH (08:05)
[2016-11-17] MEDS: Mometasone/Formoter 100/5 MDI INH SCH ×2 (08:34→20:06)
--- NOTE | 2016-11-17 11:50 | PN ---
Subjective Date of Service: 11/17/16 Interval History: He denies SOB, cough, pain. He states he ate his breakfast today and enjoyed the scrambled eggs. Family History: Unchanged from Admission Social History: Unchanged from Admission Past Medical History: Unchanged from Admission Objective Active Medications: Albuterol (Ventolin 2.5 Mg/3 Ml Neb.Maria Luisa*) 2.5 mg INH .Q4-6H PRN PRN Reason: SHORTNESS OF BREATH Last Admin: 11/15/16 06:22 Dose: 2.5 mg Cetirizine HCl (Zyrtec*) 10 mg PO QPM [facility] Last Admin: 11/16/16 17:04 Dose: 10 mg Clopidogrel Bisulfate (Plavix Tab*) 75 mg PO DAILY [facility] Last Admin: 11/17/16 07:46 Dose: Not Given Coenzyme Q10 (Coenzyme Q10 (Nf)) 2 cap PO DAILY [facility] Last Admin: 11/17/16 08:05 Dose: 2 cap Dextrose (D50w Syringe 50 Ml*) 12.5 gm IV PUSH .FOR FS < 60 - SS PRN PRN Reason: FS < 60 Furosemide (Lasix Tab*) 20 mg PO DAILY [facility] Last Admin: 11/17/16 08:05 Dose: 20 mg Guaifenesin (Mucinex*) 600 mg PO BID PRN PRN Reason: CONGESTION Last Admin: 11/16/16 17:06 Dose: 600 mg Insulin Human Lispro (Humalog*) 0 - 5 units SUBCUT AC [facility] PRN Reason: Protocol Last Admin: 11/17/16 07:45 Dose: Not Given Ipratropium [place] (Atrovent 0.5 Mg Neb.Maria Luisa*) 0.5 mg INH BID PRN PRN Reason: SHORTNESS OF BREATH Levothyroxine Sodium (Synthroid Tab*) 100 mcg PO 0600 [facility] Last Admin: 11/17/16 05:07 Dose: 100 mcg Mometasone Furoate/Formoterol Fumar (Dulera 100/5 Mdi*) 2 puff INH BID [facility] Last Admin: 11/17/16 08:34 Dose: 2 puff Morphine Sulfate (Morphine Oral Concentrate*) 2 mg SL Q2H PRN PRN Reason: PAIN Paroxetine HCl (Paxil Tab*) 10 mg PO DAILY [facility] Last Admin: 11/17/16 08:05 Dose: 10 mg Rivaroxaban (Xarelto (*)) 20 mg PO DAILY@1700 BRYN Last Admin: 11/16/16 17:04 Dose: 20 mg Vital Signs 11/16/16 11/16/16 11/16/16 15:46 19:01 20:06 Temperature 97.6 F 97.8 F Pulse Rate 85 90 71 Respiratory 28 24 20 Rate Blood Pressure 118/48 105/51 (mmHg) O2 Sat by Pulse 98 98 97 Oximetry 11/16/16 11/17/16 11/17/16 23:14 01:57 02:07 Temperature 98.2 F Pulse Rate 68 Respiratory 16 18 18 Rate Blood Pressure 101/57 (mmHg) O2 Sat by Pulse 99 Oximetry 11/17/16 11/17/16 11/17/16 03:51 07:32 07:35 Temperature 98.2 F 98.0 F Pulse Rate 86 93 79 Respiratory 18 Rate Blood Pressure 111/68 100/48 (mmHg) O2 Sat by Pulse 98 98 98 Oximetry 11/17/16 11/17/16 11/17/16 08:00 08:36 11:28 Temperature 97.5 F Pulse Rate 92 84 Respiratory 18 20 Rate Blood Pressure 89/47 (mmHg) O2 Sat by Pulse 92 100 Oximetry Oxygen Devices in Use Now: Nasal Cannula - 5L Appearance: Alert, in a chair. In good spirits. Looks comfortable but tachypneic at rest. Eyes: No Scleral Icterus Neck: NL Appearance and Movements; NL JVP, No Thyroid Enlargement, Masses Respiratory: Symmetrical Chest Expansion and Respiratory Effort, - - Diminished BS R base Cardiovascular: NL Sounds; No Murmurs; No JVD, RRR, No Edema, - Extremities: No Edema, No Clubbing, Cyanosis, - Skin: No Rash or Ulcers, No Nodules or Sclerosis, - Neurological: Alert and Oriented x 3, NL Sensation Result Diagrams: 11/13/16 06:55 11/16/16 06:05 Additional Lab and Data: Lab Results 11/11/16 11/11/16 11/11/16 Range/Units 16:53 16:53 16:53 WBC 12.8 H (3.5-10.8) 10^3/ul RBC 4.33 (4.0-5.4) 10^6/ul Hgb 11.0 L (14.0-18.0) g/dl Hct 37 L (42-52) % MCV 85 (80-94) fL MCH 25 L (27-31) pg MCHC 30 L (31-36) g/dl RDW 18 H (10.5-15) % Plt Count 546 H D (150-450) 10^3/ul MPV 8 (7.4-10.4) um3 Neut % (Auto) 73.1 (38-83) % Lymph % (Auto) 18.8 L (25-47) % [place] % (Auto) 6.5 (1-9) % Eos % (Auto) 1.0 (0-6) % Baso % (Auto) 0.6 (0-2) % Absolute Neuts (auto) 9.3 H (1.5-7.7) 10^3/ul Absolute Lymphs (auto) 2.4 (1.0-4.8) 10^3/ul Absolute Monos (auto) 0.8 (0-0.8) 10^3/ul Absolute Eos (auto) 0.1 (0-0.6) 10^3/ul Absolute Basos (auto) 0.1 (0-0.2) 10^3/ul Absolute Nucleated RBC 0.02 10^3/ul Nucleated RBC % 0.1 Normal RBC Morphology Not Reportable Polychromasia 1+ Hypochromasia 2+ Macrocytosis 1+ Daisy Cells 1+ INR (Anticoag Therapy) 1.33 H (0.89-1.11) APTT 26.5 (26.0-36.3) seconds Patient Temperature ABG pH (7.35-7.45) ABG pCO2 (35-45) mmHg ABG pO2 (80-100) mmHg ABG HCO3 (19-31) mmol/L ABG O2 Saturation (95-98) % ABG Base Excess (-2.0-2.0) Respiration Rate O2 Delivery Device Ventilator Type Vent Mode FiO2 Inspiratory Time PEEP Pressure Support Pressure Control EPAP IPAP BiPAP Sodium 139 (133-145) mmol/L Potassium 4.4 (3.5-5.0) mmol/L Chloride 99 L (101-111) mmol/L Carbon Dioxide 27 (22-32) mmol/L Anion Gap 13 H (2-11) mmol/L BUN 21 (6-24) mg/dL Creatinine 1.31 H (0.67-1.17) mg/dL Est GFR ( Amer) 67.4 (>60) Est GFR (Non-Af Amer) 52.4 (>60) BUN/Creatinine Ratio 16.0 (8-20) Glucose 315 H (70-100) mg/dL Lactic Acid (0.5-2.0) mmol/L Calcium 8.9 (8.6-10.3) mg/dL Magnesium 2.2 (1.9-2.7) mg/dL Total Bilirubin 0.80 (0.2-1.0) mg/dL AST 39 (13-39) U/L ALT 26 (7-52) U/L Alkaline Phosphatase 68 (34-104) U/L Total Creatine Kinase 115 (10-223) U/L CK-MB (CK-2) 8.6 H (0.6-6.3) ng/mL Troponin I 0.01 (<0.04) ng/mL C-Reactive Protein 22.58 H (< 5.00) mg/L B-Natriuretic Peptide ( - 100) pg/mL Total Protein 6.6 (6.4-8.9) g/dL Albumin 3.8 (3.2-5.2) g/dL Globulin 2.8 (2-4) g/dL Albumin/Globulin Ratio 1.4 (1-3) Lipase 49 (11.0-82.0) U/L TSH 2.58 (0.34-5.60) mcIU/mL 11/11/16 11/11/16 11/11/16 Range/Units 16:53 16:53 17:40 WBC (3.5-10.8) 10^3/ul RBC (4.0-5.4) 10^6/ul Hgb (14.0-18.0) g/dl Hct (42-52) % MCV (80-94) fL MCH (27-31) pg MCHC (31-36) g/dl RDW (10.5-15) % Plt Count (150-450) 10^3/ul MPV (7.4-10.4) um3 Neut % (Auto) (38-83) % Lymph % (Auto) (25-47) % [place] % (Auto) (1-9) % Eos % (Auto) (0-6) % Baso % (Auto) (0-2) % Absolute Neuts (auto) (1.5-7.7) 10^3/ul Absolute Lymphs (auto) (1.0-4.8) 10^3/ul Absolute Monos (auto) (0-0.8) 10^3/ul Absolute Eos (auto) (0-0.6) 10^3/ul Absolute Basos (auto) (0-0.2) 10^3/ul Absolute Nucleated RBC 10^3/ul Nucleated RBC % Normal RBC Morphology Polychromasia Hypochromasia Macrocytosis Daisy Cells INR (Anticoag Therapy) (0.89-1.11) APTT (26.0-36.3) seconds Patient Temperature ABG pH 7.13 L* (7.35-7.45) ABG pCO2 84 H* (35-45) mmHg ABG pO2 229 H (80-100) mmHg ABG HCO3 23.0 (19-31) mmol/L ABG O2 Saturation 100.3 H (95-98) % ABG Base Excess -2.5 L (-2.0-2.0) Respiration Rate O2 Delivery Device Ventilator Type Vent Mode FiO2 Inspiratory Time PEEP Pressure Support Pressure Control EPAP IPAP BiPAP Sodium (133-145) mmol/L Potassium (3.5-5.0) mmol/L Chloride (101-111) mmol/L Carbon Dioxide (22-32) mmol/L Anion Gap (2-11) mmol/L BUN (6-24) mg/dL Creatinine (0.67-1.17) mg/dL Est GFR ( Amer) (>60) Est GFR (Non-Af Amer) (>60) BUN/Creatinine Ratio (8-20) Glucose (70-100) mg/dL Lactic Acid 7.9 H* (0.5-2.0) mmol/L Calcium (8.6-10.3) mg/dL Magnesium (1.9-2.7) mg/dL Total Bilirubin (0.2-1.0) mg/dL AST (13-39) U/L ALT (7-52) U/L Alkaline Phosphatase (34-104) U/L Total Creatine Kinase (10-223) U/L CK-MB (CK-2) (0.6-6.3) ng/mL Troponin I (<0.04) ng/mL C-Reactive Protein (< 5.00) mg/L B-Natriuretic Peptide 1503 H ( - 100) pg/mL Total Protein (6.4-8.9) g/dL Albumin (3.2-5.2) g/dL Globulin (2-4) g/dL Albumin/Globulin Ratio (1-3) Lipase (11.0-82.0) U/L TSH (0.34-5.60) mcIU/mL 11/11/16 Range/Units 19:01 WBC (3.5-10.8) 10^3/ul RBC (4.0-5.4) 10^6/ul Hgb (14.0-18.0) g/dl Hct (42-52) % MCV (80-94) fL MCH (27-31) pg MCHC (31-36) g/dl RDW (10.5-15) % Plt Count (150-450) 10^3/ul MPV (7.4-10.4) um3 Neut % (Auto) (38-83) % Lymph % (Auto) (25-47) % [place] % (Auto) (1-9) % Eos % (Auto) (0-6) % Baso % (Auto) (0-2) % Absolute Neuts (auto) (1.5-7.7) 10^3/ul Absolute Lymphs (auto) (1.0-4.8) 10^3/ul Absolute Monos (auto) (0-0.8) 10^3/ul Absolute Eos (auto) (0-0.6) 10^3/ul Absolute Basos (auto) (0-0.2) 10^3/ul Absolute Nucleated RBC 10^3/ul Nucleated RBC % Normal RBC Morphology Polychromasia Hypochromasia Macrocytosis [place] Cells INR (Anticoag Therapy) (0.89-1.11) APTT (26.0-36.3) seconds Patient Temperature Not Reportable ABG pH Pending (7.35-7.45) ABG pCO2 Pending (35-45) mmHg ABG pO2 Pending (80-100) mmHg ABG HCO3 Pending (19-31) mmol/L ABG O2 Saturation Pending (95-98) % ABG Base Excess Pending (-2.0-2.0) Respiration Rate Not Reportable O2 Delivery Device Bipap Ventilator Type Not Reportable Vent Mode Not Reportable FiO2 80 Inspiratory Time Not Reportable PEEP Not Reportable Pressure Support Not Reportable Pressure Control Not Reportable EPAP 5 IPAP 10 BiPAP Not Reportable Sodium (133-145) mmol/L Potassium (3.5-5.0) mmol/L Chloride (101-111) mmol/L Carbon Dioxide (22-32) mmol/L Anion Gap (2-11) mmol/L BUN (6-24) mg/dL Creatinine (0.67-1.17) mg/dL Est GFR ( Amer) (>60) Est GFR (Non-Af Amer) (>60) BUN/Creatinine Ratio (8-20) Glucose (70-100) mg/dL Lactic Acid (0.5-2.0) mmol/L Calcium (8.6-10.3) mg/dL Magnesium (1.9-2.7) mg/dL Total Bilirubin (0.2-1.0) mg/dL AST (13-39) U/L ALT (7-52) U/L Alkaline Phosphatase (34-104) U/L Total Creatine Kinase (10-223) U/L CK-MB (CK-2) (0.6-6.3) ng/mL Troponin I (<0.04) ng/mL C-Reactive Protein (< 5.00) mg/L B-Natriuretic Peptide ( - 100) pg/mL Total Protein (6.4-8.9) g/dL Albumin (3.2-5.2) g/dL Globulin (2-4) g/dL Albumin/Globulin Ratio (1-3) Lipase (11.0-82.0) U/L TSH (0.34-5.60) mcIU/mL Microbiology and Other Data: Microbiology 11/11/16 20:08 Nasal Screen MRSA (PCR)([facility]) - Final Nasal Mrsa Positive Assess/Plan/Problems-Billing Assessment: Acute on chronic combined hypoxic and hypercarbic respiratory failure 2/2 PTX in an 81 yo M with hx of HTN, CAD s/p PCI, ICM EF 30%, severe O2-dependent COPD , DM, pAF on xarelto and recent admission for respiratory failure requiring intubation 2/2 MRSA PNA with course complicated by PTX - Patient Problems (1) Acute respiratory failure with hypoxia and hypercarbia Current Visit: No Status: Acute Code(s): J96.01 - ACUTE RESPIRATORY FAILURE WITH HYPOXIA; J96.02 - ACUTE RESPIRATORY FAILURE WITH HYPERCAPNIA SNOMED Code( s): 51035405 Comment: With BL pleural effusion, CT. Improving. He may be near his new baseline. Pleural fluid C&S from 11/12 no growth day 4. Awaiting removal of CT. (2) PAF (paroxysmal atrial fibrillation) Current Visit: No Status: Acute Code(s): I48.0 - PAROXYSMAL ATRIAL FIBRILLATION SNOMED Code(s): 499366988 Comment: Rate is controlled. Continue rivaroxaban. (3) Hypothyroid Current Visit: No Status: Acute Code(s): E03.9 - HYPOTHYROIDISM, UNSPECIFIED SNOMED Code(s): 52107972 Comment: Continue home dose of synthroid. TSH wnl 11/11/16. (4) CAD (coronary artery disease) Current Visit: No Status: Acute Code(s): I25.10 - ATHSCL HEART DISEASE OF [place] CORONARY ARTERY W/O ANG PCTRS SNOMED Code(s): 75667462 Comment: Continue clopidogrel. states he is not on ASA per Dr. Munoz' s recommendation. He has not been able to tolerate statins. (5) Debility Current Visit: Yes Status: Acute Code(s): R53.81 - OTHER [place] SNOMED Code(s): 67179569 Comment: PT eval 11/13, limited mobility, did not walk at all due to SOB. (6) Ischemic cardiomyopathy Current Visit: Yes Status: Acute Code(s): I25.5 - ISCHEMIC CARDIOMYOPATHY SNOMED Code(s): 920482052 Comment: LVEF 35% 08/2015. BNP 1503 11/11/16. Started furosemide 11/15, 20 mg IV first day then 20 mg po daily. BMP ordered 11/17. (7) Hypotension Current Visit: Yes Status: Acute Comment: Has occured in past. CBC, BMP, ECG ordered. He has very poor radial pulses BL and some of the hypotension may be related to peripheral artery disease. Status and Disposition: Inpatient for respiratory failure, PTX
[2016-11-17 12:09] LABS: Hematocrit 31 % (42-52); Hemoglobin 9.4 g/dl (14.0-18.0); Mean Corpuscular HGB Conc 31 g/dl (31-36); Mean Corpuscular Hemoglobin 25 pg (27-31); Mean Corpuscular Volume 81 fL (80-94); Mean Platelet Volume 8 um3 (7.4-10.4); Red Blood Count 3.75 10^6/ul (4.0-5.4); Red Cell Distribution Width 19 % (10.5-15); White Blood Count 12.3 10^3/ul (3.5-10.8)
[2016-11-17 12:20] LABS: BUN/Creatinine Ratio 24.7 (8-20); Calcium 8.7 mg/dL (8.6-10.3); EGFR African American 124.4 (>60); EGFR Non-African American 96.7 (>60); Potassium 4.3 mmol/L (3.5-5.0)
--- NOTE | 2016-11-17 12:45 | PN ---
Progress Note - Progress Note Note: Pulm consult f/u note 11/17/16. Pt seen and examined at bedside. Reports improvement in breathing, still needing 5L O2 Active Medications Generic Name Dose Route Start Last Admin Trade Name Leonor PRN Reason Stop Dose Admin Albuterol 2.5 mg 11/11/16 18:41 11/15/16 06:22 Ventolin 2.5 Mg/3 Ml Neb.Maria Luisa* INH 2.5 mg .Q4-6H PRN Administration SHORTNESS OF BREATH Cetirizine HCl 10 mg 11/12/16 18:00 11/16/16 17:04 Zyrtec* PO 10 mg QPM BRYN Administration Clopidogrel Bisulfate 75 mg 11/12/16 09:00 11/17/16 07:46 Plavix Tab* PO Not Given DAILY [facility] Coenzyme Q10 2 cap 11/12/16 09:00 11/17/16 08:05 Coenzyme Q10 (Nf) PO 2 cap DAILY [facility] Administration Dextrose 12.5 gm 11/12/16 08:57 D50w Syringe 50 Ml* IV PUSH .FOR FS < 60 - SS PRN FS < 60 Furosemide 20 mg 11/16/16 09:00 11/17/16 08:05 Lasix Tab* PO 20 mg DAILY BR[facility] Administration Guaifenesin 600 mg 11/12/16 09:00 11/16/16 17:06 Mucinex* PO 600 mg BID PRN Administration CONGESTION Insulin Human Lispro 0 - 5 units 11/12/16 11:30 11/17/16 12:26 Humalog* SUBCUT 1 units AC [facility]YN Administration Protocol Ipratropium [place] 0.5 mg 11/11/16 18:41 Atrovent 0.5 Mg Neb.Maria Luisa* INH BID PRN SHORTNESS OF BREATH Levothyroxine Sodium 100 mcg 11/12/16 06:00 11/17/16 05:07 Synthroid Tab* PO 100 mcg 0600 BRYN Administration Mometasone Furoate/Formoterol Fumar 2 puff 11/12/16 09:00 11/17/16 08:34 Dulera 100/5 Mdi* INH 2 puff BID BRYN Administration Morphine Sulfate 2 mg 11/12/16 16:01 Morphine Oral Concentrate* SL Q2H PRN PAIN Paroxetine HCl 10 mg 11/12/16 09:00 11/17/16 08:05 Paxil Tab* PO 10 mg DAILY BRYN Administration Rivaroxaban 20 mg 11/12/16 17:00 11/16/16 17:04 Xarelto (*) PO 20 mg DAILY@1700 BRYN Administration Vital Signs Temp Pulse Resp BP Pulse Ox 97.5 F 84 20 89/47 100 11/17/16 11:28 11/17/16 11:28 11/17/16 08:36 11/17/16 11:28 11/17/16 11:28 Gen: Alert,in NAD, sitting in bed, in good spirits HEENT: PERRLA, No Scleral Icterus, No JVD, mucus membranes moist Neck: NL Appearance and Movements; No Thyroid Enlargement, Masses Respiratory: Symmetrical Chest Expansion and Respiratory Effort, Clear to Auscultation, diminished a/e b/l, chest tube in place Cardiovascular: NL Sounds; No Murmurs; No JVD, RRR, No Edema Extremities: No Edema, No Clubbing, Cyanosis Skin: No Rash or Ulcers, No Nodules or Sclerosis Neurological: Alert and Oriented x 3, no focal defecits Laboratory Results - last 24 hr 11/16/16 11/16/16 11/17/16 16:33 21:09 07:38 WBC RBC Hgb Hct MCV MCH MCHC RDW Plt Count MPV Neut % (Auto) Lymph % (Auto) [place] % (Auto) Eos % (Auto) Baso % (Auto) Absolute Neuts (auto) Absolute Lymphs (auto) Absolute Monos (auto) Absolute Eos (auto) Absolute Basos (auto) Absolute Nucleated RBC Nucleated RBC % Sodium Potassium Chloride Carbon Dioxide Anion Gap BUN Creatinine Est GFR ( Amer) Est GFR (Non-Af Amer) BUN/Creatinine Ratio Glucose POC Glucose (mg/dL) 114 H 155 H 123 H Calcium 11/17/16 11/17/16 11/17/16 11:41 11:41 11:57 WBC 12.3 H RBC 3.75 L Hgb 9.4 L Hct 31 L MCV 81 MCH 25 L MCHC 31 RDW 19 H Plt Count 318 MPV 8 Neut % (Auto) 81.0 Lymph % (Auto) 5.4 L [place] % (Auto) 12.1 H Eos % (Auto) 1.2 Baso % (Auto) 0.3 Absolute Neuts (auto) 10.0 H Absolute Lymphs (auto) 0.7 L Absolute Monos (auto) 1.5 H Absolute Eos (auto) 0.1 Absolute Basos (auto) 0 Absolute Nucleated RBC 0.01 Nucleated RBC % 0 Sodium 138 Potassium 4.3 Chloride 102 Carbon Dioxide 31 Anion Gap 5 BUN 19 Creatinine 0.77 Est GFR ( Amer) 124.4 Est GFR (Non-Af Amer) 96.7 BUN/Creatinine Ratio 24.7 H Glucose 202 H POC Glucose (mg/dL) 154 H Calcium 8.7 I/R: 81 y o m with h/o laryngeal ca, COPD a/w recurrent PTX, s/p chest tube placement Pt with no air leak through Heimlich Has b/l effusions R>L Didnot perform thoracentesis today as pt was on Xarelto and Plavix which will be held Will obtain chest U/S today, if noted to have enough fluid will remove tomorrow Can remove chest tube after pleural tap PT/OT bronchodilators Pt and not wanting palliative care at this point D/w Dr Terry regarding pleurodesis, given associated risks it was decided to watch for recurrence and then consider pleurodesis
[2016-11-17] MEDS: Rivaroxaban TAB(*) 20 MG TAB PO SCH (15:14)
--- NOTE | 2016-11-17 15:28 | RAD ---
INDICATION: To better evaluate bilateral pleural effusions. COMPARISON: Chest x-ray dated November 15, 2016 TECHNIQUE: Real time ultrasound images of the bilateral lung bases were acquired with mancini scale and Doppler color flow imaging. FINDINGS: There are moderate bilateral pleural effusions. IMPRESSION: Moderate size bilateral pleural effusions.
[2016-11-17] MEDS: Cetirizine* 10 MG TAB PO SCH (17:25)
[2016-11-17] MEDS: guaiFENesin ER TAB 600 MG PO PRN (17:27)
[2016-11-18] MEDS: Levothyroxine TAB* 100 MCG TAB PO SCH (06:24)
[2016-11-18 07:51] LABS: Body Fluid Appearance Cloudy
[2016-11-18 08:00] LABS: Body Fluid WBC 645 /mcL
[2016-11-18] MEDS: Mometasone/Formoter 100/5 MDI INH SCH ×2 (08:09→19:36)
[2016-11-18 08:11] LABS: Body Fluid Total Cells Counted 100
[2016-11-18] MEDS: Insulin LISPRO* 1 UNITS UNIT SUBCUT SCH ×3 (08:26→17:25)
[2016-11-18] MEDS: Clopidogrel TAB* 75 MG PO SCH (08:34)
[2016-11-18] MEDS: COENZYME Q10 200 MG PO SCH (08:34)
--- NOTE | 2016-11-18 08:36 | RAD ---
INDICATION: Status post right-sided thoracentesis COMPARISON: Most recent comparison chest x-rays dated November 15, 2016 TECHNIQUE: Single AP portable view of the chest was obtained. FINDINGS: Image quality is compromised due to the relative inferiority of a portable chest x-ray. Again seen is a small caliber chest tube overlying the right upper chest not changed significantly from the previous chest x-ray. The heart and mediastinum exhibit normal size and contour. The lungs are grossly clear. There is persistent density obscuring the left lung base slightly larger when compared to the previous chest x-ray. There is been small interval decrease in the size of the right-sided pleural effusion. Visualized bones are normal for the patient's age. IMPRESSION: Small interval decrease in size of right-sided pleural effusion with concomitant apparent increase in the size of the left pleural effusion.
[2016-11-18] MEDS: Furosemide TAB* 20 MG PO SCH (08:53)
[2016-11-18] MEDS: PARoxetine HCL TAB* 10 MG PO SCH (08:53)
--- NOTE | 2016-11-18 13:09 | PRO ---
THORACENTESIS REPORT: DATE OF PROCEDURE: 11/18/16 PREPROCEDURAL DIAGNOSES: Moderate sized right pleural effusion, hypoxemia. PROCEDURE PERFORMED: Ultrasound-guided thoracentesis on the right side. ANESTHESIA: Local anesthesia with 5 cc of 1% lidocaine. PROCEDURE IN DETAIL: Informed consent was obtained from the patient prior to the procedure, after all the risks and benefits associated with the procedure including risk of pneumothorax was thoroughly explained. The patient recently had pneumothorax and had chest tube placed on the right side. The patient with no air leak through the chest tube. The patient continues to have high FiO2 requirements. Noted to have moderate sized bilateral effusions. Time-out was performed prior to the procedure. The patient was sitting up, leaning forward during the procedure. A portable ultrasound was utilized to localize moderate amount of effusion on the right side. Strict aseptic precautions were followed. A CareFusion 8-Maldiv[place] thoracentesis catheter was utilized for the procedure. Catheter was inserted under manual suction. Local anesthesia was inserted subdermally, down into the pleural space under manual suction, taking precautions. Stab incision with #11 Scalpel blade was made. A CareFusion 8- [place] thoracentesis catheter was inserted under manual suction. The patient had 1200 mL of fluid removed under manual suction. Fluid was slightly blood stained, likely traumatic tap. The patient's Plavix was held and Xarelto was held since yesterday. The patient did not have any discomfort during the procedure. Catheter was withdrawn and Band-Aid was placed. The patient tolerated the procedure well. Postprocedure chest x-ray was performed, which did not reveal any pneumothorax, with evidence of decrease in right-sided fluid. Chest tube to be removed [id number]/[facility] #: [id number] MTDD
--- NOTE | 2016-11-18 16:26 | PN ---
Progress Note - Progress Note Note: Pulm consult f/u note 11/18/16. Pt seen and examined at bedside. Reports improvement in breathing, still needing 4.5L O2, no acute events o/n. Active Medications Generic Name Dose Route Start Last Admin Trade Name Freq PRN Reason Stop Dose Admin Albuterol 2.5 mg 11/11/16 18:41 11/15/16 06:22 Ventolin 2.5 Mg/3 Ml Neb.Maria Luisa* INH 2.5 mg .Q4-6H PRN Administration SHORTNESS OF BREATH Cetirizine HCl 10 mg 11/12/16 18:00 11/17/16 17:25 Zyrtec* PO 10 mg QPM BRYN Administration Clopidogrel Bisulfate 75 mg 11/12/16 09:00 11/18/16 08:34 Plavix Tab* PO Not Given DAILY BRYN Coenzyme Q10 2 cap 11/12/16 09:00 11/18/16 08:34 Coenzyme Q10 (Nf) PO Not Given DAILY BRYN Dextrose 12.5 gm 11/12/16 08:57 D50w Syringe 50 Ml* IV PUSH .FOR FS < 60 - SS PRN FS < 60 Furosemide 20 mg 11/16/16 09:00 11/18/16 08:53 Lasix Tab* PO 20 mg DAILY BRYN Administration Guaifenesin 600 mg 11/12/16 09:00 11/17/16 17:27 Mucinex* PO 600 mg BID PRN Administration CONGESTION Insulin Human Lispro 0 - 5 units 11/12/16 11:30 11/18/16 12:35 Humalog* SUBCUT 1 units AC BRYN Administration Protocol Ipratropium [place] 0.5 mg 11/11/16 18:41 Atrovent 0.5 Mg Neb.Maria Luisa* INH BID PRN SHORTNESS OF BREATH Levothyroxine Sodium 100 mcg 11/12/16 06:00 11/18/16 06:24 Synthroid Tab* PO 100 mcg 0600 BRYN Administration Mometasone Furoate/Formoterol Fumar 2 puff 11/12/16 09:00 11/18/16 08:09 Dulera 100/5 Mdi* INH 2 puff BID BRYN Administration Morphine Sulfate 2 mg 11/12/16 16:01 Morphine Oral Concentrate* SL Q2H PRN PAIN Paroxetine HCl 10 mg 11/12/16 09:00 11/18/16 08:53 Paxil Tab* PO 10 mg DAILY [facility] Administration Rivaroxaban 20 mg 11/12/16 17:00 11/17/16 15:14 Xarelto (*) PO Not Given DAILY@1700 [facility] Vital Signs Temp Pulse Resp BP Pulse Ox 97.2 F 89 24 95/46 97 11/18/16 15:41 11/18/16 15:41 11/18/16 15:41 11/18/16 15:41 11/18/16 15:41 Gen: Alert,in NAD, HEENT: PERRLA, No JVD, mucus membranes moist Neck: No Thyroid Enlargement, No palpable Masses Respiratory: Symmetrical Chest Expansion and Respiratory Effort, Clear to Auscultation, diminished a/e b/l, chest tube in place, No accessory muscle usage Cardiovascular: NL Sounds; No Murmurs; No JVD, RRR, No Edema Extremities: No Edema, No Clubbing, Cyanosis Skin: No Rash or Ulcers Neurological: Alert and Oriented x 3, no focal defecits Laboratory Results - last 24 hr 11/17/16 11/17/16 11/18/16 17:21 22:24 07:22 POC Glucose (mg/dL) 157 H 128 H Fluid Source Pleural fluid Fluid Volume 8 Fluid Color Edith Fluid Appearance Cloudy Fluid WBC 645 Fluid RBC 8751 Fluid Tot Cell Count 100 Fluid Neutrophils 27 Fluid Lymphocytes 73 Fluid Other Cells 125 Fluid Cell Count Rvw By Fluid Comment 11/18/16 11/18/16 08:09 12:21 POC Glucose (mg/dL) 139 H 193 H Fluid Source Fluid Volume Fluid Color Fluid Appearance Fluid WBC Fluid RBC Fluid Tot Cell Count Fluid Neutrophils Fluid Lymphocytes Fluid Other Cells Fluid Cell Count Rvw By Fluid Comment I/R: 81 y o m with h/o laryngeal ca, COPD a/w recurrent PTX, s/p chest tube placement Pt with no air leak through Heimlich Has b/l effusions R>L S/p thoracentesis with U/S guidance on right side with removal of 1.2L of serous fluid today No PTX s/p thoracentesis Can restart Xarelto and Plavix Can remove chest tube PT/OT bronchodilators Pt and not wanting palliative care at this point D/w Dr Terry regarding pleurodesis, given associated risks it was decided to watch for recurrence and then consider pleurodesis Plan for d/c to rehab after chest tube removal
--- NOTE | 2016-11-18 16:49 | PN ---
Subjective Date of Service: 11/18/16 Interval History: No new c/o. Breathing is better since his thoracentesis today. Family History: Unchanged from Admission Social History: Unchanged from Admission Past Medical History: Unchanged from Admission Objective Active Medications: Albuterol (Ventolin 2.5 Mg/3 Ml Neb.Maria Luisa*) 2.5 mg INH .Q4-6H PRN PRN Reason: SHORTNESS OF BREATH Last Admin: 11/15/16 06:22 Dose: 2.5 mg Cetirizine HCl (Zyrtec*) 10 mg PO QPM [facility] Last Admin: 11/17/16 17:25 Dose: 10 mg Clopidogrel Bisulfate (Plavix Tab*) 75 mg PO DAILY [facility] Last Admin: 11/18/16 08:34 Dose: Not Given Coenzyme Q10 (Coenzyme Q10 (Nf)) 2 cap PO DAILY [facility] Last Admin: 11/18/16 08:34 Dose: Not Given Dextrose (D50w Syringe 50 Ml*) 12.5 gm IV PUSH .FOR FS < 60 - SS PRN PRN Reason: FS < 60 Furosemide (Lasix Tab*) 20 mg PO DAILY [facility] Last Admin: 11/18/16 08:53 Dose: 20 mg Guaifenesin (Mucinex*) 600 mg PO BID PRN PRN Reason: CONGESTION Last Admin: 11/17/16 17:27 Dose: 600 mg Insulin Human Lispro (Humalog*) 0 - 5 units SUBCUT AC [facility] PRN Reason: Protocol Last Admin: 11/18/16 12:35 Dose: 1 units Ipratropium [place] (Atrovent 0.5 Mg Neb.Maria Luisa*) 0.5 mg INH BID PRN PRN Reason: SHORTNESS OF BREATH Levothyroxine Sodium (Synthroid Tab*) 100 mcg PO 0600 [facility] Last Admin: 11/18/16 06:24 Dose: 100 mcg Mometasone Furoate/Formoterol Fumar (Dulera 100/5 Mdi*) 2 puff INH BID [facility] Last Admin: 11/18/16 08:09 Dose: 2 puff Morphine Sulfate (Morphine Oral Concentrate*) 2 mg SL Q2H PRN PRN Reason: PAIN Paroxetine HCl (Paxil Tab*) 10 mg PO DAILY [facility] Last Admin: 11/18/16 08:53 Dose: 10 mg Rivaroxaban (Xarelto (*)) 20 mg PO DAILY@1700 [facility] Last Admin: 11/17/16 15:14 Dose: Not Given Vital Signs 11/17/16 11/18/16 11/18/16 20:00 00:13 04:37 Temperature 98.1 F 97.7 F Pulse Rate 88 81 Respiratory 22 19 17 Rate Blood Pressure 105/54 98/54 (mmHg) O2 Sat by Pulse 98 100 Oximetry 11/18/16 11/18/16 11/18/16 07:39 07:55 08:00 Temperature 97.3 F Pulse Rate 95 Respiratory 20 20 Rate Blood Pressure 90/49 82/50 (mmHg) O2 Sat by Pulse 88 Oximetry 11/18/16 11/18/16 08:10 15:41 Temperature 97.2 F Pulse Rate 85 89 Respiratory 18 24 Rate Blood Pressure 95/46 (mmHg) O2 Sat by Pulse 98 97 Oximetry Oxygen Devices in Use Now: Nasal Cannula - 5L Appearance: Alert, in a chair. In good spirits. Looks comfortable. Ears/Nose/Mouth/Throat: Clear Oropharnyx, Mucous Membranes Moist Neck: NL Appearance and Movements; NL JVP, No Thyroid Enlargement, Masses Respiratory: Symmetrical Chest Expansion and Respiratory Effort, Clear to Auscultation, Clear to Percussion Extremities: No Edema, No Clubbing, Cyanosis, - Skin: No Rash or Ulcers, No Nodules or Sclerosis, - Neurological: Alert and Oriented x 3, NL Sensation Lines/Tubes/Other Access: Clean, Dry and Intact Chest Tube - R anterior chest Result Diagrams: 11/17/16 11:41 11/17/16 11:41 Additional Lab and Data: Lab Results 11/11/16 11/11/16 11/11/16 Range/Units 16:53 16:53 16:53 WBC 12.8 H (3.5-10.8) 10^3/ul RBC 4.33 (4.0-5.4) 10^6/ul Hgb 11.0 L (14.0-18.0) g/dl Hct 37 L (42-52) % MCV 85 (80-94) fL MCH 25 L (27-31) pg MCHC 30 L (31-36) g/dl RDW 18 H (10.5-15) % Plt Count 546 H D (150-450) 10^3/ul MPV 8 (7.4-10.4) um3 Neut % (Auto) 73.1 (38-83) % Lymph % (Auto) 18.8 L (25-47) % [place] % (Auto) 6.5 (1-9) % Eos % (Auto) 1.0 (0-6) % Baso % (Auto) 0.6 (0-2) % Absolute Neuts (auto) 9.3 H (1.5-7.7) 10^3/ul Absolute Lymphs (auto) 2.4 (1.0-4.8) 10^3/ul Absolute Monos (auto) 0.8 (0-0.8) 10^3/ul Absolute Eos (auto) 0.1 (0-0.6) 10^3/ul Absolute Basos (auto) 0.1 (0-0.2) 10^3/ul Absolute Nucleated RBC 0.02 10^3/ul Nucleated RBC % 0.1 Normal RBC Morphology Not Reportable Polychromasia 1+ Hypochromasia 2+ Macrocytosis 1+ [place] Cells 1+ INR (Anticoag Therapy) 1.33 H (0.89-1.11) APTT 26.5 (26.0-36.3) seconds Patient Temperature ABG pH (7.35-7.45) ABG pCO2 (35-45) mmHg ABG pO2 (80-100) mmHg ABG HCO3 (19-31) mmol/L ABG O2 Saturation (95-98) % ABG Base Excess (-2.0-2.0) Respiration Rate O2 Delivery Device Ventilator Type Vent Mode FiO2 Inspiratory Time PEEP Pressure Support Pressure Control EPAP IPAP BiPAP Sodium 139 (133-145) mmol/L Potassium 4.4 (3.5-5.0) mmol/L Chloride 99 L (101-111) mmol/L Carbon Dioxide 27 (22-32) mmol/L Anion Gap 13 H (2-11) mmol/L BUN 21 (6-24) mg/dL Creatinine 1.31 H (0.67-1.17) mg/dL Est GFR ( Amer) 67.4 (>60) Est GFR (Non-Af Amer) 52.4 (>60) BUN/Creatinine Ratio 16.0 (8-20) Glucose 315 H (70-100) mg/dL Lactic Acid (0.5-2.0) mmol/L Calcium 8.9 (8.6-10.3) mg/dL Magnesium 2.2 (1.9-2.7) mg/dL Total Bilirubin 0.80 (0.2-1.0) mg/dL AST 39 (13-39) U/L ALT 26 (7-52) U/L Alkaline Phosphatase 68 (34-104) U/L Total Creatine Kinase 115 (10-223) U/L CK-MB (CK-2) 8.6 H (0.6-6.3) ng/mL Troponin I 0.01 (<0.04) ng/mL C-Reactive Protein 22.58 H (< 5.00) mg/L B-Natriuretic Peptide ( - 100) pg/mL Total Protein 6.6 (6.4-8.9) g/dL Albumin 3.8 (3.2-5.2) g/dL Globulin 2.8 (2-4) g/dL Albumin/Globulin Ratio 1.4 (1-3) Lipase 49 (11.0-82.0) U/L TSH 2.58 (0.34-5.60) mcIU/mL 11/11/16 11/11/16 11/11/16 Range/Units 16:53 16:53 17:40 WBC (3.5-10.8) 10^3/ul RBC (4.0-5.4) 10^6/ul Hgb (14.0-18.0) g/dl Hct (42-52) % MCV (80-94) fL MCH (27-31) pg MCHC (31-36) g/dl RDW (10.5-15) % Plt Count (150-450) 10^3/ul MPV (7.4-10.4) um3 Neut % (Auto) (38-83) % Lymph % (Auto) (25-47) % [place] % (Auto) (1-9) % Eos % (Auto) (0-6) % Baso % (Auto) (0-2) % Absolute Neuts (auto) (1.5-7.7) 10^3/ul Absolute Lymphs (auto) (1.0-4.8) 10^3/ul Absolute Monos (auto) (0-0.8) 10^3/ul Absolute Eos (auto) (0-0.6) 10^3/ul Absolute Basos (auto) (0-0.2) 10^3/ul Absolute Nucleated RBC 10^3/ul Nucleated RBC % Normal RBC Morphology Polychromasia Hypochromasia Macrocytosis [place] Cells INR (Anticoag Therapy) (0.89-1.11) APTT (26.0-36.3) seconds Patient Temperature ABG pH 7.13 L* (7.35-7.45) ABG pCO2 84 H* (35-45) mmHg ABG pO2 229 H (80-100) mmHg ABG HCO3 23.0 (19-31) mmol/L ABG O2 Saturation 100.3 H (95-98) % ABG Base Excess -2.5 L (-2.0-2.0) Respiration Rate O2 Delivery Device Ventilator Type Vent Mode FiO2 Inspiratory Time PEEP Pressure Support Pressure Control EPAP IPAP BiPAP Sodium (133-145) mmol/L Potassium (3.5-5.0) mmol/L Chloride (101-111) mmol/L Carbon Dioxide (22-32) mmol/L Anion Gap (2-11) mmol/L BUN (6-24) mg/dL Creatinine (0.67-1.17) mg/dL Est GFR ( Amer) (>60) Est GFR (Non-Af Amer) (>60) BUN/Creatinine Ratio (8-20) Glucose (70-100) mg/dL Lactic Acid 7.9 H* (0.5-2.0) mmol/L Calcium (8.6-10.3) mg/dL Magnesium (1.9-2.7) mg/dL Total Bilirubin (0.2-1.0) mg/dL AST (13-39) U/L ALT (7-52) U/L Alkaline Phosphatase (34-104) U/L Total Creatine Kinase (10-223) U/L CK-MB (CK-2) (0.6-6.3) ng/mL Troponin I (<0.04) ng/mL C-Reactive Protein (< 5.00) mg/L B-Natriuretic Peptide 1503 H ( - 100) pg/mL Total Protein (6.4-8.9) g/dL Albumin (3.2-5.2) g/dL Globulin (2-4) g/dL Albumin/Globulin Ratio (1-3) Lipase (11.0-82.0) U/L TSH (0.34-5.60) mcIU/mL 11/11/16 Range/Units 19:01 WBC (3.5-10.8) 10^3/ul RBC (4.0-5.4) 10^6/ul Hgb (14.0-18.0) g/dl Hct (42-52) % MCV (80-94) fL MCH (27-31) pg MCHC (31-36) g/dl RDW (10.5-15) % Plt Count (150-450) 10^3/ul MPV (7.4-10.4) um3 Neut % (Auto) (38-83) % Lymph % (Auto) (25-47) % [place] % (Auto) (1-9) % Eos % (Auto) (0-6) % Baso % (Auto) (0-2) % Absolute Neuts (auto) (1.5-7.7) 10^3/ul Absolute Lymphs (auto) (1.0-4.8) 10^3/ul Absolute Monos (auto) (0-0.8) 10^3/ul Absolute Eos (auto) (0-0.6) 10^3/ul Absolute Basos (auto) (0-0.2) 10^3/ul Absolute Nucleated RBC 10^3/ul Nucleated RBC % Normal RBC Morphology Polychromasia Hypochromasia Macrocytosis [place] Cells INR (Anticoag Therapy) (0.89-1.11) APTT (26.0-36.3) seconds Patient Temperature Not Reportable ABG pH Pending (7.35-7.45) ABG pCO2 Pending (35-45) mmHg ABG pO2 Pending (80-100) mmHg ABG HCO3 Pending (19-31) mmol/L ABG O2 Saturation Pending (95-98) % ABG Base Excess Pending (-2.0-2.0) Respiration Rate Not Reportable O2 Delivery Device Bipap Ventilator Type Not Reportable Vent Mode Not Reportable FiO2 80 Inspiratory Time Not Reportable PEEP Not Reportable Pressure Support Not Reportable Pressure Control Not Reportable EPAP 5 IPAP 10 BiPAP Not Reportable Sodium (133-145) mmol/L Potassium (3.5-5.0) mmol/L Chloride (101-111) mmol/L Carbon Dioxide (22-32) mmol/L Anion Gap (2-11) mmol/L BUN (6-24) mg/dL Creatinine (0.67-1.17) mg/dL Est GFR ( Amer) (>60) Est GFR (Non-Af Amer) (>60) BUN/Creatinine Ratio (8-20) Glucose (70-100) mg/dL Lactic Acid (0.5-2.0) mmol/L Calcium (8.6-10.3) mg/dL Magnesium (1.9-2.7) mg/dL Total Bilirubin (0.2-1.0) mg/dL AST (13-39) U/L ALT (7-52) U/L Alkaline Phosphatase (34-104) U/L Total Creatine Kinase (10-223) U/L CK-MB (CK-2) (0.6-6.3) ng/mL Troponin I (<0.04) ng/mL C-Reactive Protein (< 5.00) mg/L B-Natriuretic Peptide ( - 100) pg/mL Total Protein (6.4-8.9) g/dL Albumin (3.2-5.2) g/dL Globulin (2-4) g/dL Albumin/Globulin Ratio (1-3) Lipase (11.0-82.0) U/L TSH (0.34-5.60) mcIU/mL Microbiology and Other Data: Microbiology 11/11/16 20:08 Nasal Screen MRSA (PCR)([facility]) - Final Nasal Mrsa Positive Assess/Plan/Problems-Billing Assessment: Acute on 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 Improving. He may be near his new baseline. Pleural fluid C&S from 11/12 no growth day 4. Awaiting removal of CT. (2) PAF (paroxysmal atrial fibrillation) Current Visit: No Status: Acute Code(s): I48.0 - PAROXYSMAL ATRIAL FIBRILLATION SNOMED Code(s): 752117628 Comment: Rate is controlled. Continue rivaroxaban. (3) Hypothyroid Current Visit: No Status: Acute Code(s): E03.9 - HYPOTHYROIDISM, UNSPECIFIED SNOMED Code(s): 13857764 Comment: Continue home dose of synthroid. TSH wnl 11/11/16. (4) CAD (coronary artery disease) Current Visit: No Status: Acute Code(s): I25.10 - ATHSCL HEART DISEASE OF [place] CORONARY ARTERY W/O ANG PCTRS SNOMED Code(s): 43914958 Comment: Continue clopidogrel. states he is not on ASA per Dr. Munoz' s recommendation. He has not been able to tolerate statins. (5) Debility Current Visit: Yes Status: Acute Code(s): R53.81 - OTHER [place] SNOMED Code(s): 78523535 Comment: PT eval 11/13, limited mobility, did not walk at all due to SOB. (6) Ischemic cardiomyopathy Current Visit: Yes Status: Acute Code(s): I25.5 - ISCHEMIC CARDIOMYOPATHY SNOMED Code(s): 542276710 Comment: LVEF 35% 08/2015. BNP 1503 11/11/16. Started furosemide 11/15, 20 mg IV first day then 20 mg po daily. Weight down to 154 lb 9.60 oz 11/18. (7) Hypotension Current Visit: Yes Status: Acute Comment: Has occured in past. CBC, BMP, ECG ordered. He has very poor radial pulses BL and some of the hypotension may be related to peripheral artery disease. Status and Disposition: Inpatient for respiratory failure, PTX
[2016-11-18] MEDS: Cetirizine* 10 MG TAB PO SCH (17:40)
[2016-11-18] MEDS: Rivaroxaban TAB(*) 20 MG TAB PO SCH (17:40)
[2016-11-18] MEDS: guaiFENesin ER TAB 600 MG PO PRN (17:43)
[2016-11-19] MEDS: Levothyroxine TAB* 100 MCG TAB PO SCH (05:32)
[2016-11-19 05:34] LABS: Hematocrit 27 % (42-52); Hemoglobin 8.4 g/dl (14.0-18.0); Mean Corpuscular HGB Conc 32 g/dl (31-36); Mean Corpuscular Hemoglobin 25 pg (27-31); Mean Corpuscular Volume 80 fL (80-94); Mean Platelet Volume 8 um3 (7.4-10.4); Red Blood Count 3.33 10^6/ul (4.0-5.4); Red Cell Distribution Width 19 % (10.5-15); White Blood Count 9.7 10^3/ul (3.5-10.8)
[2016-11-19 05:51] LABS: BUN/Creatinine Ratio 21.5 (8-20); Calcium 8.3 mg/dL (8.6-10.3); EGFR African American 120.8 (>60); EGFR Non-African American 93.9 (>60); Potassium 4.3 mmol/L (3.5-5.0)
--- NOTE | 2016-11-19 07:58 | PN ---
Progress Note - Progress Note Note: Pulm consult f/u note 11/19/16. Pt seen and examined at bedside. No new complaints, reports improvement in breathing Active Medications Generic Name Dose Route Start Last Admin Trade Name Freq PRN Reason Stop Dose Admin Albuterol 2.5 mg 11/11/16 18:41 11/15/16 06:22 Ventolin 2.5 Mg/3 Ml Neb.Maria Luisa* INH 2.5 mg .Q4-6H PRN Administration SHORTNESS OF BREATH Cetirizine HCl 10 mg 11/12/16 18:00 11/18/16 17:40 Zyrtec* PO 10 mg QPM BRYN Administration Clopidogrel Bisulfate 75 mg 11/12/16 09:00 11/18/16 08:34 Plavix Tab* PO Not Given DAILY BRYN Coenzyme Q10 2 cap 11/12/16 09:00 11/18/16 08:34 Coenzyme Q10 (Nf) PO Not Given DAILY BRYN Dextrose 12.5 gm 11/12/16 08:57 D50w Syringe 50 Ml* IV PUSH .FOR FS < 60 - SS PRN FS < 60 Furosemide 20 mg 11/16/16 09:00 11/18/16 08:53 Lasix Tab* PO 20 mg DAILY [facility]YN Administration Guaifenesin 600 mg 11/12/16 09:00 11/18/16 17:43 Mucinex* PO 600 mg BID PRN Administration CONGESTION Insulin Human Lispro 0 - 5 units 11/12/16 11:30 11/18/16 17:25 Humalog* SUBCUT Not Given [facility] Protocol Ipratropium [place] 0.5 mg 11/11/16 18:41 Atrovent 0.5 Mg Neb.Maria Luisa* INH BID PRN SHORTNESS OF BREATH Levothyroxine Sodium 100 mcg 11/12/16 06:00 11/19/16 05:32 Synthroid Tab* PO 100 mcg 0600 BRYN Administration Mometasone Furoate/Formoterol Fumar 2 puff 11/12/16 09:00 11/18/16 19:36 Dulera 100/5 Mdi* INH 2 puff BID BRYN Administration Morphine Sulfate 2 mg 11/12/16 16:01 Morphine Oral Concentrate* SL Q2H PRN PAIN Paroxetine HCl 10 mg 11/12/16 09:00 11/18/16 08:53 Paxil Tab* PO 10 mg DAILY [facility] Administration Rivaroxaban 20 mg 11/12/16 17:00 11/18/16 17:40 Xarelto (*) PO 20 mg DAILY@1700 BR[facility] Administration Vital Signs Temp Pulse Resp BP Pulse Ox 98.6 F 90 16 94/54 93 11/19/16 07:39 11/19/16 07:39 11/19/16 07:39 11/19/16 07:39 11/19/16 07:39 Gen: Alert, lying in bed, in NAD HEENT: PERRLA, No JVD, mucus membranes moist Neck: No Thyroid Enlargement, No palpable Masses, No JVD Respiratory: Symmetrical Chest Expansion and Respiratory Effort, Clear to Auscultation, diminished a/e b/l, No accessory muscle usage Cardiovascular: NL Sounds; No Murmurs; No JVD, RRR, No Edema Extremities: No Edema, No Clubbing, Cyanosis Skin: No Rash or Ulcers Neurological: Alert and Oriented x 3, no focal defecits Laboratory Results - last 24 hr 11/18/16 11/18/16 11/18/16 07:22 08:09 12:21 WBC RBC Hgb Hct MCV MCH MCHC RDW Plt Count MPV Neut % (Auto) Lymph % (Auto) [place] % (Auto) Eos % (Auto) Baso % (Auto) Absolute Neuts (auto) Absolute Lymphs (auto) Absolute Monos (auto) Absolute Eos (auto) Absolute Basos (auto) Absolute Nucleated RBC Nucleated RBC % Sodium Potassium Chloride Carbon Dioxide Anion Gap BUN Creatinine Est GFR ( Amer) Est GFR (Non-Af Amer) BUN/Creatinine Ratio Glucose POC Glucose (mg/dL) 139 H 193 H Calcium Fluid Volume 8 Fluid Color Edith Fluid Appearance Cloudy Fluid WBC 645 Fluid RBC 8751 Fluid Tot Cell Count 100 Fluid Neutrophils 27 Fluid Lymphocytes 73 Fluid Other Cells 125 Fluid Cell Count Rvw By Fluid Comment 11/18/16 11/18/16 11/19/16 17:24 20:37 04:43 WBC 9.7 RBC 3.33 L Hgb 8.4 L Hct 27 L MCV 80 MCH 25 L MCHC 32 RDW 19 H Plt Count 264 MPV 8 Neut % (Auto) 80.3 Lymph % (Auto) 7.0 L [place] % (Auto) 9.1 H Eos % (Auto) 3.0 Baso % (Auto) 0.6 Absolute Neuts (auto) 7.8 H Absolute Lymphs (auto) 0.7 L Absolute Monos (auto) 0.9 H Absolute Eos (auto) 0.3 Absolute Basos (auto) 0.1 Absolute Nucleated RBC 0 Nucleated RBC % 0 Sodium Potassium Chloride Carbon Dioxide Anion Gap BUN Creatinine Est GFR ( Amer) Est GFR (Non-Af Amer) BUN/Creatinine Ratio Glucose POC Glucose (mg/dL) 141 H 201 H Calcium Fluid Volume Fluid Color Fluid Appearance Fluid WBC Fluid RBC Fluid Tot Cell Count Fluid Neutrophils Fluid Lymphocytes Fluid Other Cells Fluid Cell Count Rvw By Fluid Comment 11/19/16 04:43 WBC RBC Hgb Hct MCV MCH MCHC RDW Plt Count MPV Neut % (Auto) Lymph % (Auto) [place] % (Auto) Eos % (Auto) Baso % (Auto) Absolute Neuts (auto) Absolute Lymphs (auto) Absolute Monos (auto) Absolute Eos (auto) Absolute Basos (auto) Absolute Nucleated RBC Nucleated RBC % Sodium 143 Potassium 4.3 Chloride 105 Carbon Dioxide 33 H Anion Gap 5 BUN 17 Creatinine 0.79 Est GFR ( Amer) 120.8 Est GFR (Non-Af Amer) 93.9 BUN/Creatinine Ratio 21.5 H Glucose 128 H POC Glucose (mg/dL) Calcium 8.3 L Fluid Volume Fluid Color Fluid Appearance Fluid WBC Fluid RBC Fluid Tot Cell Count Fluid Neutrophils Fluid Lymphocytes Fluid Other Cells Fluid Cell Count Rvw By Fluid Comment I/R: 81 y o m with h/o laryngeal ca, COPD a/w recurrent PTX, s/p chest tube removal today Dressing placed Has b/l effusions R>L S/p thoracentesis with U/S guidance on right side with removal of 1.2L of serous fluid PT/OT c/w Bronchodilators Pt and not wanting palliative care at this point D/w Dr Terry regarding pleurodesis, given associated risks it was decided to watch for recurrence and then consider pleurodesis Plan for d/c to rehab
[2016-11-19] MEDS: Mometasone/Formoter 100/5 MDI INH SCH ×2 (08:02→20:41)
--- NOTE | 2016-11-19 08:45 | RAD ---
INDICATION: Status post chest tube removal. COMPARISON: Comparison is made with a prior chest x-ray study from November 18, 2016. TECHNIQUE: A portable view of the chest was obtained. FINDINGS: The heart appears moderately enlarged and unchanged. There is a left basilar infiltrate and pleural effusion. The effusion appears decreased from the prior exam. There is diffuse prominence of the interstitial markings which is unchanged. The patient is status post removal of a chest tube on the right side. No pneumothorax is seen on this portable study. IMPRESSION: 1. STATUS POST RIGHT CHEST TUBE REMOVAL, NO PNEUMOTHORAX IS SEEN. 2. LEFT BASILAR INFILTRATE AND PLEURAL EFFUSION.
[2016-11-19] MEDS: Insulin LISPRO* 1 UNITS UNIT SUBCUT SCH ×3 (08:50→17:59)
[2016-11-19] MEDS: PARoxetine HCL TAB* 10 MG PO SCH (08:50)
[2016-11-19] MEDS: Furosemide TAB* 20 MG PO SCH (08:50)
[2016-11-19] MEDS: COENZYME Q10 200 MG PO SCH (08:53)
[2016-11-19] MEDS: Clopidogrel TAB* 75 MG PO SCH (11:59)
[2016-11-19 14:21] LABS: Total Protein, BF 2.5 g/dL
[2016-11-19] MEDS: guaiFENesin ER TAB 600 MG PO PRN (18:02)
[2016-11-19] MEDS: Rivaroxaban TAB(*) 20 MG TAB PO SCH (18:02)
[2016-11-19] MEDS: Cetirizine* 10 MG TAB PO SCH (18:02)
[2016-11-20] MEDS: Levothyroxine TAB* 100 MCG TAB PO SCH (05:39)
[2016-11-20] MEDS: Mometasone/Formoter 100/5 MDI INH SCH (07:32)
[2016-11-20] MEDS: Insulin LISPRO* 1 UNITS UNIT SUBCUT SCH (08:12)
[2016-11-20 08:15] VITALS: BP 100/55
[2016-11-20] MEDS: Furosemide TAB* 20 MG PO SCH (09:05)
[2016-11-20] MEDS: Clopidogrel TAB* 75 MG PO SCH (09:05)
[2016-11-20] MEDS: COENZYME Q10 200 MG PO SCH (09:05)
[2016-11-20] MEDS: PARoxetine HCL TAB* 10 MG PO SCH (09:07)
--- NOTE | 2016-11-23 07:48 | PN ---
Hospitalist Progress Note . HOSPITALIST DISCHARGE NOTE: See dc instructions and summary by me. Patient stable for dc dc instructions reviewed with the patient at the bedside. DC patient home today.
--- NOTE | 2016-11-23 11:41 | DS ---
CC: Dr. Flores; Dr. Chin; Dr. Terry DISCHARGE SUMMARY: DATE OF ADMISSION: 11/11/16 DATE OF DISCHARGE: 11/20/16 STATUS DURING HOSPITALIZATION: Inpatient. PRIMARY CARE PROVIDER: Dr. Dayne Flores. OUTPATIENT WIRE DRAWING SETTER: Dr. Erica Chin. CONSULTING SURGEON: Dr. Clay Terry. PRINCIPAL DISCHARGE DIAGNOSIS: Acute combined hypoxic and hypercarbic respiratory failure secondary to recurrent pneumothorax. PROCEDURES DURING HOSPITALIZATION: Include ipsilateral chest tube placement with re-expansion of laureen ng as well as thoracentesis secondary to pleural effusion, done without complication. SECONDARY DIAGNOSES: 1. Hypertension. 2. Ischemic cardiomyopathy with ejection fraction of 35%. 3. Chronic obstructive pulmonary disease - on home oxygen. 4. Type 2 diabetes - noninsulin dependent. 5. Paroxysmal atrial fibrillation. 6. History of anticardiolipin antibody. 7. Laryngeal carcinoma - status post radiation and currently in remission. DISCHARGE MEDICATION REGIMEN: No changes intended and include: 1. Xarelto 20 mg by mouth daily. 2. Coenzyme Q10 200 mg by mouth daily. 3. Levothyroxine 100 mcg by mouth daily. 4. Pantoprazole 40 mg by mouth daily. 5. Metoprolol tartrate 25 mg by mouth twice daily. 6. Paroxetine/Paxil 10 mg by mouth daily. 7. Albuterol sulfate 2 inhalations every 4 hours as needed for shortness of breath/wheezing. 8. Levocetirizine/Xyzal 5 mg by mouth daily. 9. Mometasone/formoterol 100/5 strength ([place]) 2 puffs inhaled twice daily. 10. Plavix 75 mg by mouth daily. 11. Furosemide 20 mg by mouth daily. 12. Rosuvastatin 5 mg by mouth Wednesday, Wednesday, and Wednesday. 13. Ipratropium/Atrovent 0.5 inhaled twice daily as needed. 14. Albuterol/Ventolin nebulizer 2.5 inhaled every 4 to 6 hours as needed. 15. Multivitamin with minerals 1 tab by mouth twice daily. 16. Guaifenesin extended release 600 mg by mouth twice daily as needed. HISTORY OF PRESENT ILLNESS/HOSPITAL COURSE: Please see the H and P by Dr. Randolph Kahn on 7 as well as the consultation and progress notes by Dr. Erica Chin of the pulmonology consult [facility] hospital, as well as by General Surgery. In brief, Mr. Williamson is a complicated gentleman with medical h istory as above, who was recently admitted to the hospital for respiratory failure and septic shock secondary to community-acquired MRSA pneumonia, who just, 3 days after discharge, reexperienced resp iratory symptoms. The patient was placed on emergent BiPAP and most of the admission, details were gathered from the patient's . The patient was on Bactrim and doing well, but seemed more fatigu ed suddenly and when he went to the bathroom to take a shower, he was in there for a long time, and when the checked on him he was extremely short of breath and becoming cyanotic. The patient wa s brought urgently to the emergency room and required significant amounts of oxygen and had respirat ory acidosis on labs and a chest x-ray showed the recurrence of a large right-sided pneumothorax. Iris Mann of the general surgery service was consulted and urgently placed a chest tube with Heimlich valve. The patient had repeat blood gases with improvement. The patient was somewhat hypotensive intermittently and the patient was aggressively resuscitated with fluids in the ICU setting. This w as done carefully considering his known systolic heart failure. The patient had a chest tube for se veral days and slowly did well. Finally the chest tube was discontinued. The patient did have an ef fusion on the same side and this was drained - more than 1 L was removed. This was done without dif ficulty and the patient was generally well-appearing when I saw him for the first time on 11/19/16. He was sitting at the side of the bed and eating a regular diet. He is apparently very anxious and in speaking with his , when he comes close to the end of the hospitalization he gets very nervo us, so he was eager to leave. Home services were put in place late in the day on 11/19/16 and on 11/20/16, with [facility] services in place, the patient was discharged in stable condition. He is to follow up with his primary care provider, Dr. Arnol Flores, next week. He can come back to [facility] emergency room if has any worsening symptoms including, but not limited to, shortness of breath, lightheadedness, evidence of dehydration or any other worrisome symptoms. He said he will comply wi the instructions. TIME SPENT: Total time taken to discharge Mr. Williamson was 45 minutes, greater than half that time was spent going over the major events of the hospitalization, which spanned a week, and answering gener al questions by both him and his . CONDITION AT DISCHARGE: Stable. [id number]/[facility] #: [id number]
== END 2016-11-20 11:25 | disposition home health service (06) | DRG 199 ==
LOC: ED 16:44 → ICU 18:37 → MED 11-13 08:34
PROVIDERS: ADMIT Hospitalist; ATTEND Internal Medicine
PROC: 0W993ZZ Drainage of Right Pleural Cavity, Percutaneous Approach (ICD-10-PCS; principal; 2016-11-15)
PROC: 5A09457 Assistance with Respiratory Ventilation, 24-96 Consecutive Hours, Continuous Positive Airway Pressure (ICD-10-PCS; 2016-11-15)
DX: J93.9 Pneumothorax, unspecified (principal); J96.02 Acute respiratory failure with hypercapnia; N17.9 Acute kidney failure, unspecified; E87.2 Acidosis; I95.9 Hypotension, unspecified; J96.01 Acute respiratory failure with hypoxia; I11.0 Hypertensive heart disease with heart failure; I48.0 Paroxysmal atrial fibrillation; I50.22 Chronic systolic (congestive) heart failure; I25.5 Ischemic cardiomyopathy; I25.10 Atherosclerotic heart disease of native coronary artery without angina pectoris; J44.9 Chronic obstructive pulmonary disease, unspecified; E11.9 Type 2 diabetes mellitus without complications; Z85.21 Personal history of malignant neoplasm of larynx; Z92.3 Personal history of irradiation; Z88.0 Allergy status to penicillin; Z88.8 Allergy status to other drugs, medicaments and biological substances; Z82.49 Family history of ischemic heart disease and other diseases of the circulatory system; Z83.3 Family history of diabetes mellitus; Z87.891 Personal history of nicotine dependence; Z87.01 Personal history of pneumonia (recurrent); E03.9 Hypothyroidism, unspecified; Z95.5 Presence of coronary angioplasty implant and graft; M19.90 Unspecified osteoarthritis, unspecified site; R53.81 Other malaise
CPT/HCPCS: 36415; 36600; 71010; 71020; 71250; 76604; 80048; 80053; 80202; 81003; 81015; 82042; 82550; 82553; 82803; 83605; 83615; 83690; 83735; 83880; 83986; 84145; 84157; 84443; 84484; 85025; 85610; 85730; 86140; 87040; 87070; 87086; 87205; 87641; 88112; 89051; 93005; 94640; 94660; 94760; A9270-GY; J0692; J1940; J3370

== ENCOUNTER 2016-12-09 10:28 | Inpatient (IN) | payer MEDICARE, OTHER ==
[2016-12-09 10:40] LABS: EPAP 6; FIO2 100; IPAP 12
[2016-12-09] MEDS ORDERED: Albuterol/Ipratropium NEB.SOL* Albuterol 2.5 MG/Ipratropium 0.5 MG 3 ML ONE (10:41)
[2016-12-09] MEDS ORDERED: Succinylcholine* 20 MG/ML 10 ML VIAL IV ONE (10:43)
[2016-12-09] MEDS ORDERED: Etomidate* 2 MG/ML 10 ML VIAL IV ONE (10:43)
[2016-12-09] MEDS ORDERED: Albuterol/Ipratropium NEB.SOL* Albuterol 2.5 MG/Ipratropium 0.5 MG 3 ML INH ONE (10:52)
[2016-12-09] MEDS ORDERED: Succinylcholine* 20 MG/ML 10 ML VIAL ONE (10:59)
[2016-12-09] MEDS ORDERED: Etomidate* 2 MG/ML 10 ML VIAL ONE (10:59)
[2016-12-09 11:20] LABS: Hematocrit 40 % (42-52); Hemoglobin 11.8 g/dl (14.0-18.0); Mean Corpuscular HGB Conc 30 g/dl (31-36); Mean Corpuscular Hemoglobin 25 pg (27-31); Mean Corpuscular Volume 83 fL (80-94); Mean Platelet Volume 8 um3 (7.4-10.4); Red Blood Count 4.82 10^6/ul (4.0-5.4); Red Cell Distribution Width 19 % (10.5-15); White Blood Count 14.8 10^3/ul (3.5-10.8)
[2016-12-09 11:22] LABS: Comments Flag Yes
[2016-12-09] MEDS: NS 0.9% 1000 ML* 1,000 ML IV ONE ×2 (11:22→11:23)
[2016-12-09 11:26] LABS: ALT 14 U/L (7-52); Alkaline Phosphatase 63 U/L (34-104); BUN/Creatinine Ratio 22.4 (8-20); Blood Urea Nitrogen 24 mg/dL (6-24); C Reactive Protein 41.32 mg/L (< 5.00); CO2 Carbon Dioxide 38 mmol/L (22-32); Calcium 9.2 mg/dL (8.6-10.3); Chloride 97 mmol/L (101-111); Creatine Kinase 56 U/L (10-223); EGFR African American 85.1 (>60); EGFR Non-African American 66.2 (>60); Glucose 182 mg/dL (70-100); Sodium 139 mmol/L (133-145)
[2016-12-09 11:27] LABS: Troponin I 0.02 ng/mL (<0.04)
--- NOTE | 2016-12-09 11:32 | RAD ---
HISTORY: Status post intubation COMPARISONS: December 09, 2016 at 10:06 AM VIEWS:1: Single frontal portable view of the chest at 11:15 AM. The right costophrenic angle is cut off. FINDINGS: LINES AND TUBES: The endotracheal tube is noted with the tip overlying the trachea between the clavicles and the cosmo. A gastric tube is noted. The tip is in the left upper quadrant just distal to the GE junction. CARDIOMEDIASTINAL SILHOUETTE: The cardiomediastinal silhouette is normal for portable technique. PLEURA: There is a moderate left pleural effusion. LUNG PARENCHYMA: There are several inflation. There is diffuse coarse reticular pattern of opacification. There is, and alveolar opacification of the left lung base ABDOMEN: The upper abdomen is clear. There is no subphrenic gas. BONES AND SOFT TISSUES: No bone or soft tissue abnormalities are noted. IMPRESSION: 1. LIMITED STUDY. 2. LINES AND TUBES ABOVE. 3. LEFT PLEURAL EFFUSION WITH LEFT BASILAR CONSOLIDATION. 4. CHRONIC APPEARING INTERSTITIAL CHANGES
--- NOTE | 2016-12-09 11:34 | RAD ---
HISTORY: Shortness of breath COMPARISONS: November 19, 2016, CT dated November 12, 2016 VIEWS:1: Single frontal portable view of the chest at 10:55 AM FINDINGS: LINES AND TUBES: None. CARDIOMEDIASTINAL SILHOUETTE: The cardiomediastinal silhouette is normal for portable technique. PLEURA: There is a moderate left pleural effusion. LUNG PARENCHYMA: There is diffuse pattern of coarse reticular opacification. There is confluent alveolar opacification of left lung base ABDOMEN: The upper abdomen is clear. There is no subphrenic gas. BONES AND SOFT TISSUES: No bone or soft tissue abnormalities are noted. IMPRESSION: 1. MODERATE LEFT PLEURAL EFFUSION WITH LEFT BASILAR ATELECTASIS VERSUS CONSOLIDATION. 2. DIFFUSE CHRONIC APPEARING INTERSTITIAL CHANGES
[2016-12-09] MEDS ORDERED: Propofol* 100 ML ONE (11:49)
[2016-12-09 11:58] LABS: Urine Bacteria Absent (Absent); Urine Bilirubin Negative (Negative); Urine Glucose Negative (Negative); Urine Nitrite Negative (Negative)
[2016-12-09] MEDS ORDERED: Cefepime(*) 1 GM in NS 0.9% 50 ML* 50 ML IVPB SCH (12:00)
[2016-12-09] MEDS ORDERED: Vancomycin(*) 1,000 MG in NS 0.9% 250 ML* 250 ML IVPB SCH (12:00)
--- NOTE | 2016-12-09 12:23 | ED ---
Irais Miller SooYoung, scribed for Hayder Valente MD on 12/09/16 at 1044 . Respiratory - HPI Summary HPI Summary: LEVEL 5 CAVEAT: HPI IS LIMITED DUE TO PT CONDITION, UNRESPONSIVE. 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 Per EMS: called EMS saying pt was having SOB, denied pain; pt 's breathing improved on the ride to the ED; when they arrived on scene, pt was limp "like a ragdoll." Per : pt was lethargic last night, not responding normally, anxious; she gave him his anxiety medication and he slept fine until about 0900 this AM; he again began having SOB and became unresponsive. states pt has not had his breathing treatment or meds this AM. Pt was admitted to hospital in November with SOB and PNA and left approx two weeks ago. Pert PMHx: esophageal CA, COPD, emphysema. Pt is on Xarelto. - History of Current Complaint Chief Complaint: EDShortnessOfBreath Stated Complaint: SHORT OF BREATH Hx Obtained From: Family/Manager Money, EMS Onset/Duration: Lasting Hours, Still Present Timing: Constant Current Severity: Severe - Allergy/Home Medications Allergies/Adverse Reactions: Allergies Allergy/AdvReac Type Severity Reaction Status Date / Time Milk Protein Extract Allergy Unknown Rash Verified 09/10/15 08:55 [From Spiriva] Tiotropium [From Spiriva] Allergy Unknown Rash Verified 09/10/15 08:55 Atorvastatin [From Lipitor] AdvReac Unknown Muscle Ache Verified 09/10/15 08:55 Ezetimibe [From Zetia] AdvReac Unknown Muscle Ache Verified 09/10/15 08:55 Rosuvastatin [From Crestor] AdvReac Unknown Muscle Ache Verified 09/10/15 08:55 Simvastatin [From Zocor] AdvReac Unknown Muscle Ache Verified 09/10/15 08:55 Penicillins [PCN] AdvReac See Comment Verified 09/10/15 09:44 Home Medications: Home Medications ALPRAZolam TAB* [Xanax TAB*] 0.25 mg PO BID PRN 12/09/16 [History Confirmed 01/18] Fluticas/Salmet 115/21 HFA(NF) [Advair HFA 115/21 (NF)] 1 puff INH BID 12/09/16 [History Confirmed 12/09/16] Montelukast Sodium TAB* [Singulair TAB*] 10 mg PO QPM 12/09/16 [History Confirmed 12/09/16] PMH/Surg Hx/FS Hx/Imm Hx Previously Healthy: No Endocrine/Hematology History: Reports: Hx Anticoagulant Therapy, Hx Diabetes, Hx Thyroid Disease Denies: Hx Blood Disorders, Hx Blood Transfusions, Hx Bone Marrow Disease, Hx Systemic Lupus Erythematosus, Hx Sickle Cell Disease, Hx Anemia, Hx Unexplained Bleeding, Other Endocrine/Hematological Disorders Cardiovascular History: Reports: Hx Angina, Hx Congestive Heart Failure, Hx Coronary Artery Disease, Hx Hypercholesterolemia, Hx Hypertension, Other Cardiovascular Problems/Disorders - cardiomyopathy, CAD/ IDDM/ CARDIAC CATH W/ STENT Denies: Hx Myocardial Infarction, Hx Valvular Heart Disease Respiratory History: Reports: Hx Asthma, Hx Chronic Obstructive Pulmonary Disease (COPD) - 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, 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&P pt on O2 at all times at 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, Hx Lung Cancer, Hx Pleural Effusion, Hx Pneumonia, Hx Pulmonary Edema, Other Respiratory Problems/Disorders - RT THORACENTESIS 11/18/16 Denies: Hx Chronic Bronchitis, Hx Cystic Fibrosis, Hx Pulmonary Embolism, Hx Seasonal Allergies, Hx Sleep Apnea GI History: Reports: Hx Gall Bladder Disease - stones, Hx Gastroesophageal Reflux Disease Denies: Hx Cirrhosis, Hx Crohn's Disease, Hx Diverticulosis, Hx Gastrointestinal Bleed, Hx Hiatal Hernia, Hx Irritable Bowel, Hx Jaundice, Hx Obstructive Bowel, Hx Ileostomy, Hx Pyloric Stenosis, Hx Ulcer, Other GI Disorders History: Denies: Hx Acute Renal Failure, Hx Benign Prostatic Hyperplasia, Hx Chronic Renal Failure, Hx Dialysis, Hx Kidney Infection, Hx Kidney Stones, Hx Renal Disease, Other Problems/Disorders Musculoskeletal History: Reports: Hx Arthritis Denies: Hx Back Problems, Hx Bursitis, Hx Congenital Bone Abnormalities, Hx Fibromyalgia, Hx Gout, Hx Orthopedic Injury, Hx Osteoporosis, Hx Scoliosis, Hx Tendonitis Sensory History: Reports: Hx Contacts or Glasses, Hx Macular Degeneration, Hx Hearing Problem - [place] Denies: Hx Cataracts, Hx Eye Injury, Hx Eye Prosthesis, Hx Glaucoma, Hx Legally Blind, Hx Vision Problem, Hx Deafness, Hx Hearing Aid, Other Sensory Impairments Opthamlomology History: Reports: Hx Contacts or Glasses, Hx Macular Degeneration Denies: Hx Cataracts, Hx Eye Injury, Hx Eye Prosthesis, Hx Glaucoma, Hx Legally Blind, Hx Vision Problem, Other Sensory Impairments Neurological History: Denies: Hx Dementia - Cancer History Cancer Type, Location and Year: laryngeal CA 2004 Hx Chemotherapy: No Hx Radiation Therapy: Yes - Surgical History Surgery Procedure, Year, and Place: throat for throat cancer 2004 Hx Anesthesia Reactions: No Infectious Disease History: Reports: Hx Hepatitis - HEPATITIS A Denies: Hx Clostridium Difficile, Hx Human Immunodeficiency Virus (HIV), Hx of Known/Suspected MRSA, Hx Shingles, Hx Tuberculosis, Hx Known/Suspected VRE, Hx Known/Suspected VRSA, History Other Infectious Disease - Family History Known Family History: Positive: Other - Mother from rheumatic fever. - Social History Occupation: Retired Lives: With Family Alcohol Use: Rare Alcohol Amount: occas glass of wine Hx Substance Use: No Substance Use Type: Reports: None Hx Tobacco Use: Yes Smoking Status (MU): Former Smoker Type: Cigarettes Have You Smoked in the Last Year: No Review of Systems - ROS Summary Review of Systems Summary: LEVEL 5 CAVEAT: ROS IS LIMITED DUE TO PT CONDITION, UNRESPONSIVE. Positive: Shortness Of Breath Positive: Other - pos: denies pain All Other Systems Reviewed And Are Negative: No Physical Exam - Summary Physical Exam Summary: LEVEL 5 CAVEAT: PE IS LIMITED DUE TO PT CONDITION, UNRESPONSIVE. Vital signs: reviewed General: Patient is unresponsive HEENT: PERRLA, dry oral mucosa. Lungs: Decrease BS in the left lower lung. CVS: S1 & S2 present. No murmurs appreciated. ABDOMEN: Soft, non-tender. No signs of distention. Decrease BS. EXTREMITIES: NO edema noted. . NEURO: Unresponsive. GCS 7 SKIN: Dry and warm Triage Information Reviewed: Yes Vital Signs On Initial Exam: Initial Vitals Temp Pulse Resp BP Pulse Ox 95.4 F 91 26 146/71 100 12/09/16 10:30 12/09/16 10:30 12/09/16 10:30 12/09/16 10:30 12/09/16 10:30 Vital Signs Reviewed: Yes Completion Of Physical Exam Limited Due To: Level 5 Diagnostics - Vital Signs Vital Signs Temp Pulse Resp BP Pulse Ox 12/09/16 11:25 16 102/73 12/09/16 11:21 15 91/54 12/09/16 11:19 17 84/44 12/09/16 11:18 86 25 95 12/09/16 11:15 18 90/68 12/09/16 11:11 19 46/23 12/09/16 11:00 82 22 136/46 95 12/09/16 10:38 146/71 12/09/16 10:35 44 71 12/09/16 10:30 95.4 F 91 26 146/71 100 - Laboratory Lab Results: Lab Results 12/09/16 12/09/16 12/09/16 Range/Units 10:35 10:40 10:40 WBC 14.8 H (3.5-10.8) 10^3/ul RBC 4.82 (4.0-5.4) 10^6/ul Hgb 11.8 L (14.0-18.0) g/dl Hct 40 L (42-52) % MCV 83 (80-94) fL MCH 25 L (27-31) pg MCHC 30 L (31-36) g/dl RDW 19 H (10.5-15) % Plt Count 420 (150-450) 10^3/ul MPV 8 (7.4-10.4) um3 Neut % (Auto) 80.5 (38-83) % Lymph % (Auto) 8.9 L (25-47) % [place] % (Auto) 9.7 H (1-9) % Eos % (Auto) 0.2 (0-6) % Baso % (Auto) 0.7 (0-2) % Absolute Neuts (auto) 11.9 H (1.5-7.7) 10^3/ul Absolute Lymphs (auto) 1.3 (1.0-4.8) 10^3/ul Absolute Monos (auto) 1.4 H (0-0.8) 10^3/ul Absolute Eos (auto) 0 (0-0.6) 10^3/ul Absolute Basos (auto) 0.1 (0-0.2) 10^3/ul Absolute Nucleated RBC 0.05 10^3/ul Nucleated RBC % 0.3 APTT 33.5 (26.0-36.3) seconds Patient Temperature Not Reportable ABG pH 7.04 L* (7.35-7.45) ABG pCO2 Not Reportable ABG pCO2 (Temp Corrct > 124 H* (35-45) mmHg ABG pO2 121 H (80-100) mmHg ABG HCO3 TNP ABG O2 Saturation 98.9 H (95-98) % ABG Base Excess TNP Respiration Rate Not Reportable O2 Delivery Device Bipap Ventilator Type Not Reportable Vent Mode Not Reportable FiO2 100 Inspiratory Time Not Reportable PEEP Not Reportable Pressure Support Not Reportable Pressure Control Not Reportable EPAP 6 IPAP 12 BiPAP Not Reportable Sodium (133-145) mmol/L Potassium Chloride (101-111) mmol/L Carbon Dioxide (22-32) mmol/L Anion Gap BUN (6-24) mg/dL Creatinine (0.67-1.17) mg/dL Est GFR ( Amer) (>60) Est GFR (Non-Af Amer) (>60) BUN/Creatinine Ratio (8-20) Glucose (70-100) mg/dL Lactic Acid (0.5-2.0) mmol/L Calcium (8.6-10.3) mg/dL Total Bilirubin (0.2-1.0) mg/dL AST ALT (7-52) U/L Alkaline Phosphatase (34-104) U/L Total Creatine Kinase (10-223) U/L CK-MB (CK-2) (0.6-6.3) ng/mL Troponin I (<0.04) ng/mL C-Reactive Protein (< 5.00) mg/L B-Natriuretic Peptide ( - 100) pg/mL Total Protein (6.4-8.9) g/dL Albumin (3.2-5.2) g/dL Globulin (2-4) g/dL Albumin/Globulin Ratio (1-3) Procalcitonin (<0.6) ng/mL 12/09/16 12/09/16 12/09/16 Range/Units 10:40 10:40 10:40 WBC (3.5-10.8) 10^3/ul RBC (4.0-5.4) 10^6/ul Hgb (14.0-18.0) g/dl Hct (42-52) % MCV (80-94) fL MCH (27-31) pg MCHC (31-36) g/dl RDW (10.5-15) % Plt Count (150-450) 10^3/ul MPV (7.4-10.4) um3 Neut % (Auto) (38-83) % Lymph % (Auto) (25-47) % [place] % (Auto) (1-9) % Eos % (Auto) (0-6) % Baso % (Auto) (0-2) % Absolute Neuts (auto) (1.5-7.7) 10^3/ul Absolute Lymphs (auto) (1.0-4.8) 10^3/ul Absolute Monos (auto) (0-0.8) 10^3/ul Absolute Eos (auto) (0-0.6) 10^3/ul Absolute Basos (auto) (0-0.2) 10^3/ul Absolute Nucleated RBC 10^3/ul Nucleated RBC % APTT (26.0-36.3) seconds Patient Temperature ABG pH (7.35-7.45) ABG pCO2 ABG pCO2 (Temp Corrct (35-45) mmHg ABG pO2 (80-100) mmHg ABG HCO3 ABG O2 Saturation (95-98) % ABG Base Excess Respiration Rate O2 Delivery Device Ventilator Type Vent Mode FiO2 Inspiratory Time PEEP Pressure Support Pressure Control EPAP IPAP BiPAP Sodium 139 (133-145) mmol/L Potassium Pending Chloride 97 L (101-111) mmol/L Carbon Dioxide 38 H (22-32) mmol/L Anion Gap Pending BUN 24 (6-24) mg/dL Creatinine 1.07 (0.67-1.17) mg/dL Est GFR ( Amer) 85.1 (>60) Est GFR (Non-Af Amer) 66.2 (>60) BUN/Creatinine Ratio 22.4 H (8-20) Glucose 182 H (70-100) mg/dL Lactic Acid 1.7 (0.5-2.0) mmol/L Calcium 9.2 (8.6-10.3) mg/dL Total Bilirubin 1.40 H (0.2-1.0) mg/dL AST Pending ALT 14 (7-52) U/L Alkaline Phosphatase 63 (34-104) U/L Total Creatine Kinase 56 (10-223) U/L CK-MB (CK-2) 6.9 H (0.6-6.3) ng/mL Troponin I 0.02 (<0.04) ng/mL C-Reactive Protein 41.32 H (< 5.00) mg/L B-Natriuretic Peptide 804 H ( - 100) pg/mL Total Protein 7.0 (6.4-8.9) g/dL Albumin 4.0 (3.2-5.2) g/dL Globulin 3.0 (2-4) g/dL Albumin/Globulin Ratio 1.3 (1-3) Procalcitonin (<0.6) ng/mL 12/09/16 Range/Units 10:40 WBC (3.5-10.8) 10^3/ul RBC (4.0-5.4) 10^6/ul Hgb (14.0-18.0) g/dl Hct (42-52) % MCV (80-94) fL MCH (27-31) pg MCHC (31-36) g/dl RDW (10.5-15) % Plt Count (150-450) 10^3/ul MPV (7.4-10.4) um3 Neut % (Auto) (38-83) % Lymph % (Auto) (25-47) % [place] % (Auto) (1-9) % Eos % (Auto) (0-6) % Baso % (Auto) (0-2) % Absolute Neuts (auto) (1.5-7.7) 10^3/ul Absolute Lymphs (auto) (1.0-4.8) 10^3/ul Absolute Monos (auto) (0-0.8) 10^3/ul Absolute Eos (auto) (0-0.6) 10^3/ul Absolute Basos (auto) (0-0.2) 10^3/ul Absolute Nucleated RBC 10^3/ul Nucleated RBC % APTT (26.0-36.3) seconds Patient Temperature ABG pH (7.35-7.45) ABG pCO2 ABG pCO2 (Temp Corrct (35-45) mmHg ABG pO2 (80-100) mmHg ABG HCO3 ABG O2 Saturation (95-98) % ABG Base Excess Respiration Rate O2 Delivery Device Ventilator Type Vent Mode FiO2 Inspiratory Time PEEP Pressure Support Pressure Control EPAP IPAP BiPAP Sodium (133-145) mmol/L Potassium Chloride (101-111) mmol/L Carbon Dioxide (22-32) mmol/L Anion Gap BUN (6-24) mg/dL Creatinine (0.67-1.17) mg/dL Est GFR ( Amer) (>60) Est GFR (Non-Af Amer) (>60) BUN/Creatinine Ratio (8-20) Glucose (70-100) mg/dL Lactic Acid (0.5-2.0) mmol/L Calcium (8.6-10.3) mg/dL Total Bilirubin (0.2-1.0) mg/dL AST ALT (7-52) U/L Alkaline Phosphatase (34-104) U/L Total Creatine Kinase (10-223) U/L CK-MB (CK-2) (0.6-6.3) ng/mL Troponin I (<0.04) ng/mL C-Reactive Protein (< 5.00) mg/L B-Natriuretic Peptide ( - 100) pg/mL Total Protein (6.4-8.9) g/dL Albumin (3.2-5.2) g/dL Globulin (2-4) g/dL Albumin/Globulin Ratio (1-3) Procalcitonin < 0.1 (<0.6) ng/mL Result Diagrams: 12/09/16 10:40 12/09/16 10:40 Lab Statement: Any lab studies that have been ordered have been reviewed, and results considered in the medical decision making process. - Radiology CXR Xray Interpretation: Positive (See Comments) - IMPRESSION: 1. MODERATE LEFT PLEURAL EFFUSION WITH LEFT BASILAR ATELECTASIS VERSUS CONSOLIDATION. 2. DIFFUSE CHRONIC APPEARING INTERSTITIAL CHANGES Radiology Interpretation Completed By: Radiologist CXR 2 Xray Interpretation: Positive (See Comments) - IMPRESSION: 1. LIMITED STUDY. 2. LINES AND TUBES ABOVE. 3. LEFT PLEURAL EFFUSION WITH LEFT BASILAR CONSOLIDATION. 4. CHRONIC APPEARING INTERSTITIAL CHANGES Radiology Interpretation Completed By: Radiologist - EKG 1 EKG Rhythm: Atrial Fibrillation - [address] Segment: Normal - no ST elevation EKG Interpretation: read at 1040 Disposition - Course Course Of Treatment: Procedure - Endotracheal Intubation. Permit was implied secondary to emergent situation. An LMA and bougie were placed within arm's reach. A Glidescope blade was inserted into the oropharynx at which time the vocal cords were visualized. A 7.5 [place] endotracheal tube was inserted and visualized going through the vocal cords. The stylette was removed. Colorimetric change was visualized on the CO2 meter. Breath sounds were heard in both lung paz equally. The endotracheal tube was placed at 23 cm, measured at the teeth. Portable chest x-ray ordered for confirmation of tube level. Post intubation sedation ordered. Intubation was made at the first attempt. No complications were encountered. 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 Per EMS: called EMS saying pt was having SOB , denied pain; pt's breathing improved on the ride to the ED; when they arrived on scene, pt was limp "like a ragdoll." Per : pt was lethargic last night, not responding normally, anxious; she gave him his anxiety medication and he slept fine until about 0900 this AM; he again began having SOB and became unresponsive. states pt has not had his breathing treatment or meds this AM. Pt was admitted to hospital in November with SOB and PNA and left approx two weeks ago. Pert PMHx: esophageal CA, COPD, emphysema. Pt is on Xarelto. In the ED course an IV access was obtained. 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 Patient was started with IV fluids since he seems to be slightly hypotensive. Labs within normal limits except for WBC 14.8, chronic anemia, glucose 182, CRP 41.32, BNP 804. UA contaminated therefore will await for Urine culture. Troponin #1: and Troponin # 2 (4 hours later): EKG shows a NSR at w/o ST elevations. CXR impression: MOderate left pleural effusion, and atelectasis vs consolidation. I believe consolidation its a better possibility since patient has been with having productive cough, increase WBC. He was started on Cefepime and Vancomycin. ABG shows a PCO2 of >150. Therefore at this time I decided to Intubate to protect the airway. His GCS is 7. Intubation eas done without complications. Please see note. At this time I discussed the case with Dr. Sethi (ICU attending) who came and examined the patient and he agrees with current management. He accepted the patient for admission. He is critically ill and intubated. - Differential Dx - Cardiopulmonary Differential Diagnoses - Cardiopulmonary: CHF, Exacerbation Of COPD, Hypoxia, Myocardial Infarction, Pulmonary Edema, Pulmonary Embolism - Diagnoses Provider Diagnoses: Respiratory failure, Unresponsive, Hypercapnia, Pneumonia, CHF (congestive heart failure) - Physician Notifications Discussed Care Of Patient With: Aaron Newton Time Discussed With Above Provider: 11:14 Instructed by Provider To: Admit As Inpatient - ICU - Critical Care Time Critical Care Time: 30-74 min Discharge - Discharge Plan Condition: Stable Disposition: ADMITTED TO [facility] Discharge Disposition Comment: ICU The documentation as recorded by the Irais germain SooYoung accurately reflects the service I personally performed and the decisions made by me, Hayder Valente MD.
--- NOTE | 2016-12-09 12:42 | HP ---
H&P (Free Text) History and Physical: CRITICAL CARE MEDICINE DATE: 12/09/16 TIME: 1150 PRIMARY CARE PROVIDER: Arnol Flores REFERRING PROVIDER: Ambrosio REASON/CHIEF COMPLAINT: unresponsive HISTORY OF PRESENT ILLNESS: 81 M, well known to icu, with chronic resp failure on home O2 with recent R complicated spont ptx post copd exac, recently discharged 2 weeks ago representing after weeling unwell yesterday. Taking ativan to sleep last night, awakening in the middle of the night with increased anxiety taking another ativan and then early this am pt was porrly responsive. GCS 6 in ED requiring intubation with abg revealing severely elevated CO2 with acute on chronic hypercarbic resp failure. Tx for potential HCAP initially since meeting criteria as well. REVIEW OF SYSTEMS: As per HPI, but limited sec to acuity. PAST MEDICAL HISTORY: As per HPI. 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 ALLERGIES: Reviewed. SOCIAL HISTORY: Reviewed. FAMILY HISTORY: Noncontributory at present. PHYSICAL EXAM: Vital Signs: Reviewed. Neurologic: post sedation and paralytics in ED. pupils reactive and starting to have bl spont movements at conclusion of my exam HEENT: anicteric; ett in place Cardiovascular: S1, S2; bp soft Respiratory: coarse bl Abdomen: thin, soft Extremities: warm, chronic changes Access: piv LABS: Reviewed. IMAGING: Reviewed. MEDICATIONS: Reviewed. ASSESSMENT: 81 M Acute on chronic hypercarbic resp failure : combination of copd exac and accumulated ativan CO2 narcosis/metabolic encephalopathy/coma on admission Pleural effusions Reactive hyperglycemia CAF on anticaog PLAN: Neurologic: allow him to awake but keep calm with propofol for the vent. prns Cardiovascular: Perfusing. vol status has interstially fluid up but intravascular dilated post intubation with R heart needing patency. IVF boluses and then usual requires vasopressors on vent and would place cvc and utilize early and try to dry lung water early as able. Respiratory: more of chronic on chronic failure of his fragile lungs. Poor complaince and reserve. time with mv for now. avoid ptx is very important. consider left thora if limiting extubation but given its trasudative it will return. copd adjuntives. Gastrointestinal: start tf. sup. Renal/Metabolic: stable fx Infectious Disease: mild wbc, no real shift. Do not see new infective burden and no need to continue abx. f/u cx Hematology: continued xeralto Endocrine: no steroids yet, as no wheeze, but low threshold perhaps. f/u for insulin coverage needs Musculoskeletal: progressive mobility Psych/Social: updated. should involve palliative after we get through this round. Supportive and preventative care as ordered. SUP: H2 VTE prophylaxis: xeralto Humphreys catheter given critical illness, monitoring needs for accurate assessment of MARII and KDIGO criteria for critically ill patients and to avoid potential harms of urinary retention, skin breakdown/ulcers. Disposition: ICU Code Status: Full Critical Care Time: 45min FGagan Newton DO
--- NOTE | 2016-12-09 13:32 | PN ---
Progress Note - Progress Note Note: CRITICAL CARE MEDICINE PROCEDURE NOTE DATE: 12/09/16 TIME: 1300 SERVICE: Critical Care Medicine LOCATION OF PROCEDURE: ICU PROCEDURE: Central line insertion. PROCEDURALIST: Dr. Newton Consent obtain: Yes, verbally d/w pts Time out held: Yes INDICATION: Acute respiratory failure. PROCEDURE: Oxygenation maintained and vitals monitored. Patient in supine position. SITE: RIGHT Internal jugular Site preparation with chlorhexidine locally. Full sterile drape, gown, hat, mask, gloves. 5ml 1% Lidocaine utilized at incision site. Standard sterile Seldinger technique utilized via ultrasound guidance and catheter was inserted to 17cm and sutured in place. Good blood return. Minimal blood loss. Site dressed with tegaderm. Portable chest x-ray pending. Patient otherwise tolerated well. Bakari Newton DO
[2016-12-09] MEDS ORDERED: Norepinephrine 16MCG/ML IVPRE* 4,000 MCG/250 ML BAG IV ONE (13:36)
[2016-12-09] MEDS ORDERED: Famotidine SUSP* 40 MG/5 ML ORAL.SUSP G TUBE ONE (14:00)
--- NOTE | 2016-12-09 14:03 | RAD ---
Indication: RIGHT IJ central venous catheter placement. Acute on chronic hypercarbic respiratory failure. Cardiomyopathy. Comparison: 1023 hours December 09, 2016. Technique: Upright AP 1335 hours Report: Tip of RIGHT IJ central venous catheter is at the level of the superior vena cava directed central. Nasogastric tube passes to the proximal stomach. Negative for pneumothorax.. Moderate LEFT and small RIGHT dependent pleural effusions with associated proportional atelectasis. Consolidation at the LEFT mid to lower lung zone is nonspecific and may represent atelectasis or inflammatory infiltrate. Mild cardiomegaly. Unremarkable central pulmonary vasculature. Diffuse prominence of interstitial markings. IMPRESSION: Negative for pneumothorax post RIGHT IJ central venous catheter placement. Unchanged prominence of the interstitial markings suspicious for potential interstitial edema as well as small RIGHT and moderate LEFT dependent pleural effusions with proportional atelectasis. Less specific consolidation at the LEFT mid to lower lung zone may represent inflammatory infiltrate.
[2016-12-09] MEDS: Norepinephrine 16MCG/ML IVPRE* 4,000 MCG/250 ML BAG IV SCH ×2 (14:12→20:00)
[2016-12-09] MEDS: Chlorhexidine MOUTHWASH 0.12%* 15 ML UDC TOPICAL SCH ×2 (14:13→21:39)
[2016-12-09] MEDS: Propofol* 100 ML IV SCH ×3 (14:14→23:15)
[2016-12-09] MEDS: Albuterol/Ipratropium NEB.SOL* Albuterol 2.5 MG/Ipratropium 0.5 MG 3 ML INH SCH ×2 (14:45→20:07)
[2016-12-09] MEDS ORDERED: KCL 20 MEQ/100 ML IVPREMIX* 20 MEQ/100 ML BAG IV SCH (15:00)
[2016-12-09 15:19] LABS: Venous Bicarbonate HCO3 15.2 mmol/L (24-28)
--- NOTE | 2016-12-09 19:43 | RAD ---
INDICATION: Placement of orogastric tube. COMPARISON: Comparison is made with a prior study of the same date from approximately 6 hours earlier. TECHNIQUE: A portable view of the chest was obtained. FINDINGS: There is an endotracheal tube which projects over the midline. There is an internal jugular central venous catheter present on the right side. The catheter tip projects approximately at the junction of the superior vena cava and right atrium. There is an orogastric tube present which demonstrates normal course. The tip projects in the left upper quadrant. There is diffuse prominence of the interstitial markings with a more confluent infiltrate at the left lung base. There is a small to moderate size left pleural effusion and a small right pleural effusion. IMPRESSION: DIFFUSE PROMINENCE OF THE INTERSTITIAL MARKINGS AND BILATERAL PLEURAL EFFUSIONS SUGGESTING THE POSSIBILITY OF CONGESTIVE HEART FAILURE, UNCHANGED. THERE IS A MORE CONFLUENT INFILTRATE AT THE LEFT LUNG BASE WHICH IS ALSO UNCHANGED.
[2016-12-10] MEDS: Chlorhexidine MOUTHWASH 0.12%* 15 ML UDC TOPICAL SCH ×7 (00:04→20:34)
[2016-12-10] MEDS: Albuterol/Ipratropium NEB.SOL* Albuterol 2.5 MG/Ipratropium 0.5 MG 3 ML INH SCH ×4 (02:12→19:50)
[2016-12-10] MEDS: fentaNYL* 50 MCG/ML 2 ML VIAL (100 MCG VIAL) IV SLOW PU PRN ×4 (02:52→19:04)
[2016-12-10] MEDS ORDERED: Furosemide IV* 10 MG/ML 2 ML VIAL (20 MG) IV ONE (04:00)
[2016-12-10] MEDS: Levothyroxine TAB* 100 MCG TAB PO SCH (05:25)
[2016-12-10] MEDS: Propofol* 100 ML IV SCH ×2 (07:07→16:14)
[2016-12-10 07:50] LABS: BUN/Creatinine Ratio 29.5 (8-20); Calcium 8.5 mg/dL (8.6-10.3); EGFR African American 106.6 (>60); EGFR Non-African American 82.9 (>60); Hematocrit 28 % (42-52); Hemoglobin 8.8 g/dl (14.0-18.0); Magnesium 1.7 mg/dL (1.9-2.7); Mean Corpuscular HGB Conc 31 g/dl (31-36); Mean Corpuscular Hemoglobin 25 pg (27-31); Mean Corpuscular Volume 81 fL (80-94); Mean Platelet Volume 8 um3 (7.4-10.4); Phosphorus 3.3 mg/dL (2.5-5.0); Potassium 4.2 mmol/L (3.5-5.0); Red Blood Count 3.47 10^6/ul (4.0-5.4); Red Cell Distribution Width 19 % (10.5-15); White Blood Count 12.8 10^3/ul (3.5-10.8)
[2016-12-10] MEDS: Clopidogrel TAB* 75 MG PO SCH (08:10)
[2016-12-10] MEDS: PARoxetine HCL TAB* 10 MG PO SCH (08:10)
[2016-12-10] MEDS: Rivaroxaban TAB(*) 20 MG TAB PO SCH (08:10)
[2016-12-10] MEDS ORDERED: Famotidine SUSP* 40 MG/5 ML ORAL.SUSP G TUBE ONE (09:00)
[2016-12-10] MEDS ORDERED: Magnesium Sulfate 2 GM IV* 2 GM/50 ML BAG IVPB ONE (09:29)
--- NOTE | 2016-12-10 09:59 | RAD ---
HISTORY: Follow-up respiratory failure COMPARISONS: December 09, 2016 VIEWS:1: Single frontal portable view of the chest at 9:35 AM FINDINGS: LINES AND TUBES: The endotracheal tube is noted with the tip overlying the trachea between the clavicles and the cosmo. A gastric tube is noted. The tip is below the [id number] the current examination but is below the diaphragm.. There is a right internal jugular venous catheter with the tip overlying the superior vena cava. CARDIOMEDIASTINAL SILHOUETTE: The cardiomediastinal silhouette is normal for portable technique. PLEURA: There are small bilateral pleural effusions, left greater than right. LUNG PARENCHYMA: There is confluent alveolar opacification of the lower lungs bilaterally, developing on the previous examination. There is a diffuse pattern of reticular opacification. ABDOMEN: The upper abdomen is clear. There is no subphrenic gas. BONES AND SOFT TISSUES: No bone or soft tissue abnormalities are noted. IMPRESSION: 1. LINES AND TUBES ABOVE. 2. BILATERAL PLEURAL EFFUSIONS, LEFT GREATER THAN RIGHT. 3. BIBASILAR ATELECTASIS VERSUS CONSOLIDATION, DEVELOPING FROM THE PREVIOUS EXAMINATION. 4. CHRONIC INTERSTITIAL CHANGES
[2016-12-10] MEDS ORDERED: Furosemide IV* 10 MG/ML VIAL (40 MG) IV SLOW PU ONE (10:15)
--- NOTE | 2016-12-10 10:38 | PN ---
Progress Note - Progress Note Note: CRITICAL CARE MEDICINE DATE: 12/10/16 TIME: 930 SUBJECTIVE: Patient seen and examined. PHYSICAL EXAM: Vital Signs: Reviewed. Neurologic: awake on prop. communicating. indicating discomfort. HEENT: anicteric; ett in place Cardiovascular: S1, S2; bp better. off levo Respiratory: coarse bl and dec L >R but also failing to trigger vent. Abdomen: thin, soft Extremities: warm, chronic changes Access: RIJ LABS: Reviewed. IMAGING: Reviewed. MEDICATIONS: Reviewed. ASSESSMENT: 81 M Acute on chronic hypercarbic resp failure : combination of copd exac and accumulated ativan CO2 narcosis/metabolic encephalopathy/coma on admission Pleural effusions Reactive hyperglycemia CAF on anticaog PLAN: Neurologic: inc sedation to RASS -2 for now to allow better use of vent. Cardiovascular: Perfusing. vol status up interstially and need to see if we can mobilize today. levo if needed while on ppv Respiratory: again chronic on chronic failure of his fragile lungs with inc fluid now as well. Poor complaince and cannot even trigger on vent. eval for possible left thora today if limiting step in extubation tomorrow. copd adjuntives. Gastrointestinal: tf. sup. Renal/Metabolic: stable Infectious Disease: mild wbc, no real shift. no abx currently. f/u cx Hematology: xeralto; hemodiluted Endocrine: no steroids yet. f/u for insulin coverage needs Musculoskeletal: progressive mobility Psych/Social: updated. Supportive and preventative care as ordered. SUP: H2 VTE prophylaxis: xeralto Humphreys catheter given critical illness, monitoring needs for accurate assessment of MARII and KDIGO criteria for critically ill patients and to avoid potential harms of urinary retention, skin breakdown/ulcers. Disposition: ICU Code Status: Full presently Critical Care Time: 35min Bakari Newton DO
[2016-12-10] MEDS: acetaZOLAMIDE VIAL* 250 MG in NS 0.9% 50 ML* 50 ML IVPB SCH ×2 (11:17→20:34)
--- NOTE | 2016-12-10 15:51 | PN ---
Progress Note - Progress Note Note: CRITICAL CARE MEDICINE PROCEDURE NOTE DATE OF PROCEDURE: 12/10/16 SERVICE: Critical Care Medicine LOCATION OF PROCEDURE: ICU PROCEDURE: LEFT Thoracentesis PROCEDURALIST: Dr. Newton Consent obtain: Yes Time out held: Yes INDICATION: Pleural effusion PROCEDURE: Oxygenation maintained and vitals monitored. Patient in supine position with head of bed 30 degrees Site and side marked with initials and date. Pre-medication with fentanyl 25mcg already and propofol gtt for vent. Chlorhexidine prep x 2 at site and full sterile drape, gown, and gloves utilized. Total 5ml 1% lidocaine utilized locally. Standard sterile technique utilized via ultrasound guidance at lateral 5th rib space. Needle retracted when fluid aspirated via advanced negative pressure technique. Catheter was inserted to 10cm. Aliquots of 50ml then extracted to total 2000ml. Consistency was transudative serous blood tinged. Minimal to Nil blood loss. Site covered with band aid. Specimens were sent to lab for cytology present for procedure. Patient otherwise tolerated well. Bakari Newton, DO
[2016-12-10] MEDS: Norepinephrine 16MCG/ML IVPRE* 4,000 MCG/250 ML BAG IV SCH (22:05)
[2016-12-11] MEDS: fentaNYL* 50 MCG/ML 2 ML VIAL (100 MCG VIAL) IV SLOW PU PRN (00:59)
[2016-12-11] MEDS: Chlorhexidine MOUTHWASH 0.12%* 15 ML UDC TOPICAL SCH ×3 (00:59→08:34)
[2016-12-11] MEDS: Albuterol/Ipratropium NEB.SOL* Albuterol 2.5 MG/Ipratropium 0.5 MG 3 ML INH SCH ×4 (01:26→20:03)
[2016-12-11] MEDS: Propofol* 100 ML IV SCH (05:46)
[2016-12-11] MEDS: Levothyroxine TAB* 100 MCG TAB PO SCH (05:47)
[2016-12-11 06:37] LABS: BUN/Creatinine Ratio 32.9 (8-20); Calcium 8.6 mg/dL (8.6-10.3); EGFR African American 126.3 (>60); EGFR Non-African American 98.2 (>60); Potassium 3.6 mmol/L (3.5-5.0)
[2016-12-11] MEDS: Clopidogrel TAB* 75 MG PO SCH (08:34)
[2016-12-11] MEDS: PARoxetine HCL TAB* 10 MG PO SCH (08:34)
[2016-12-11] MEDS: Rivaroxaban TAB(*) 20 MG TAB PO SCH (08:34)
[2016-12-11] MEDS: acetaZOLAMIDE VIAL* 250 MG in NS 0.9% 50 ML* 50 ML IVPB SCH (08:34)
[2016-12-11] MEDS ORDERED: acetaZOLAMIDE VIAL* 500 MG in NS 0.9% 50 ML* 50 ML IVPB ONE (10:00)
[2016-12-11] MEDS ORDERED: Furosemide IV* 10 MG/ML VIAL (40 MG) IV SLOW PU ONE (10:00)
--- NOTE | 2016-12-11 10:25 | RAD ---
Indication: Follow-up respiratory failure. Cardiomyopathy. COPD. Comparison: December 10, 2016 Technique: Upright AP 0945 hours Report: Nasogastric tube passes to the stomach. Endotracheal tube tip approximately 5.5 cm above the Cheryl. Tip of RIGHT IJ central venous catheter at the level of the superior vena cava. Small dependent pleural effusions. Negative for pneumothorax. Diffuse moderate prominence of the interstitial markings. Interval decrease in LEFT basilar atelectasis. Mild cardiomegaly. Unremarkable central pulmonary vasculature. IMPRESSION: Nonspecific radiographic appearance which may reflect bronchopneumonia or interstitial edema with associated small effusions. Interval decrease in LEFT basilar atelectasis.
--- NOTE | 2016-12-11 10:29 | PN ---
Progress Note - Progress Note Note: CRITICAL CARE MEDICINE DATE: 12/11/16 TIME: 925 SUBJECTIVE: Patient seen and examined. PHYSICAL EXAM: Vital Signs: Reviewed. Neurologic: awake on prop. communicating. HEENT: anicteric; ett in place but cuff little leak and stabilized with instill 1ml air Cardiovascular: S1, S2; bp stable. Respiratory: better bs and better compliance. adjusted to cpap Abdomen: thin, soft Extremities: warm, chronic changes Access: RIJ LABS: Reviewed. IMAGING: Reviewed. MEDICATIONS: Reviewed. ASSESSMENT: 81 M Acute on chronic hypercarbic resp failure : combination of copd exac and accumulated ativan CO2 narcosis/metabolic encephalopathy/coma on admission Pleural effusions L>R - now s/p left thora -2L CAF on anticaog DEconditioining PLAN: Neurologic: alert. wean off prop this am. Cardiovascular: Perfusing. vol status up interstially still and give diuretics this am and then hold as we are [place] now. levo off when off ppv. Respiratory: better. cpap. liberate from vent directly to high flow. copd adjuntives. support. Gastrointestinal: tf held. sup. Renal/Metabolic: stable Infectious Disease: no abx currently. cx ngtd Hematology: xeralto Endocrine: stable Musculoskeletal: progressive mobility Psych/Social: updated. Supportive and preventative care as ordered. SUP: H2 VTE prophylaxis: xeralto Humphreys catheter given critical illness, monitoring needs for accurate assessment of MARII and KDIGO criteria for critically ill patients and to avoid potential harms of urinary retention, skin breakdown/ulcers. Disposition: ICU Code Status: Full presently Critical Care Time: 35min Bakari Newton DO
[2016-12-11] MEDS ORDERED: Potassium Chloride LIQUID* 20 MEQ PACKET G TUBE ONE (10:30)
[2016-12-11] MEDS ORDERED: Potassium Chloride LIQUID* 20 MEQ PACKET ONE (10:40)
[2016-12-11] MEDS: Mometasone/Formoter 100/5 MDI INH SCH ×2 (13:48→20:03)
[2016-12-12] MEDS: Albuterol/Ipratropium NEB.SOL* Albuterol 2.5 MG/Ipratropium 0.5 MG 3 ML INH SCH ×2 (00:11→08:10)
[2016-12-12] MEDS: Levothyroxine TAB* 100 MCG TAB PO SCH (06:05)
[2016-12-12 06:40] LABS: Hematocrit 25 % (42-52); Hemoglobin 7.9 g/dl (14.0-18.0); Mean Corpuscular HGB Conc 31 g/dl (31-36); Mean Corpuscular Hemoglobin 25 pg (27-31); Mean Corpuscular Volume 81 fL (80-94); Mean Platelet Volume 8 um3 (7.4-10.4); Red Blood Count 3.12 10^6/ul (4.0-5.4); Red Cell Distribution Width 20 % (10.5-15); White Blood Count 10.6 10^3/ul (3.5-10.8)
[2016-12-12 06:45] LABS: BUN/Creatinine Ratio 30.2 (8-20); Calcium 8.6 mg/dL (8.6-10.3); EGFR African American 156.8 (>60); EGFR Non-African American 121.9 (>60); Phosphorus 2.5 mg/dL (2.5-5.0); Potassium 3.4 mmol/L (3.5-5.0)
[2016-12-12] MEDS: Mometasone/Formoter 100/5 MDI INH SCH (08:19)
[2016-12-12] MEDS: Clopidogrel TAB* 75 MG PO SCH (08:51)
[2016-12-12] MEDS: Rivaroxaban TAB(*) 20 MG TAB PO SCH (08:51)
[2016-12-12] MEDS: PARoxetine HCL TAB* 10 MG PO SCH (08:51)
[2016-12-12] MEDS ORDERED: CMCS:Pantoprazole TAB (NF) 40 MG TAB PO SCH (09:00)
[2016-12-12] MEDS ORDERED: Potassium Chlor TAB* 20 MEQ TAB.ER PO SCH (10:00)
[2016-12-12] MEDS ORDERED: Potassium Chloride LIQUID* 20 MEQ PACKET G TUBE ONE (10:00)
--- NOTE | 2016-12-12 10:00 | PN ---
Progress Note - Progress Note Note: CRITICAL CARE MEDICINE DATE: 12/12/16 TIME: 900 SUBJECTIVE: Patient seen and examined. feels better. vapothx PHYSICAL EXAM: Vital Signs: Reviewed. Neurologic: awake, communicating. HEENT: anicteric Cardiovascular: S1, S2; Hr up a touch into 100s this am. bp stable. Respiratory: better bs bl. mild rhonchi, no wheeze. Abdomen: thin, soft Extremities: warm, chronic changes Access: RIJ, piv LABS: Reviewed. IMAGING: Reviewed. MEDICATIONS: Reviewed. ASSESSMENT: 81 M Acute on chronic hypercarbic resp failure : combination of copd exac and accumulated ativan CO2 narcosis/metabolic encephalopathy/coma on admission Pleural effusions L>R - now s/p left thora -2L CAF on anticaog Deconditioining Anemia of chronic disease PLAN: Neurologic: doign well. prns. Cardiovascular: vol status ok. add back bb. Respiratory: wean off vapotx today. avoid ppv as able. copd adjuntives. pulm michaeliet Gastrointestinal: encourage po. sup. Renal/Metabolic: stable Infectious Disease: no abx currently; did have fever but wbc dissipated and just came off vent. cx ngtd Hematology: xeralto; Hb drifted with acute on chronic ailments. f/u Endocrine: stable Musculoskeletal: progressive mobility; oob. pt Psych/Social: updated. would have palliative care efval wednesday prior to disposition Supportive and preventative care as ordered. SUP: H2 VTE prophylaxis: xeralto Humphreys catheter dc Disposition: ICU today and floor saad Code Status: Full presently Critical Care Time: 25min Bakari Newton DO
[2016-12-12] MEDS ORDERED: Metoprolol Tartrate TAB* 25 MG PO SCH (11:00)
[2016-12-12 11:14] VITALS: BP 85/49
[2016-12-12] MEDS ORDERED: Norepinephrine 16MCG/ML IVPRE* 4,000 MCG/250 ML BAG IV ONE (12:59)
[2016-12-12] MEDS ORDERED: Norepinephrine VIAL* 1 MG/ML 4 ML VIAL ONE (13:00)
[2016-12-12] MEDS ORDERED: Atropine SYRINGE* 0.1 MG/ML 10 ML SYRINGE (1 MG) ONE (13:00)
[2016-12-12] MEDS ORDERED: EPINEPHrine SYR 0.1 MG/ML* (1:10,000) SYRINGE ONE (13:00)
--- NOTE | 2016-12-12 13:40 | PN ---
Progress Note - Progress Note Note: CRITICAL CARE MEDICINE DATE: 12/12/16 TIME: 1300 Called by nursing pt with acute sob and declining mentation and HR. Was up in chair asking to eat. was laid back to remove central line and then placed back upright and had acute sob. Placed back in bed and desat. Placed on Vapotx. Hr started declining. We applied bag ventilation and gave 0.5mg atropine with poor response. Another 0.5mg given with some HR inc but breathing approaching agonal. was at bedside and already updated. DDx to me at that time was acute thrombosis/pe post line, air embolism, spont ptx (he did similar previously), or acute NE. Any of which was going to lead to his demise given his underlying conditions. If it was something more along the lines of vasovagal we should have had a better response. I quickly relayed to his that we were going to lose him. Continued agonal and bradycardia and we attempted cpr with 1mg epi given, levo gtt being started peripherally with ongoing bag mask ventilation but to no avail. Explained to pts and she agreed to withhold further. Pt passed with at the bedside at 13:08. Critical Care Time: 25min Bakari Newton DO
--- NOTE | 2016-12-12 13:55 | DS ---
CRITICAL CARE MEDICINE DISCHARGE SUMMARY ADMISSION DATE: 12/09/2016 ICU ADMISSION DATE: 12/09/2016 ICU DISCHARGE DATE: 12/12/2016 PRIMARY CARE PROVIDER: Arnol Flores. REFERRING PHYSICIAN: Ambrosio. DIAGNOSIS: 1. Acute on chronic hypoxic and hypercarbic respiratory failure. 2. End stage chronic obstructive pulmonary disease. 3. Chronic congestive heart failure. 4. Chronic atrial fibrillation. 5. Chronic pleural effusion. 6. Coma state on admission with CO2 narcosis/metabolic encephalopathy. MEDICATIONS AT DISCHARGE: None. HOSPITAL COURSE: 81 male, admitted many times prior to the ICU with copd exacerbation and acute on chronic respiratory failure. Returned to [facility] after 2 weeks post discharge with [place] coma scale 6 requiring intubation for his respiratory failure. No new infective burden found , but yet combincation of his chronic effusions, failing lung disease and taking ativan for his associated anxiety combination leading to his present admission. [place] on vent. Unable to trigger due to severity of his copd on ventilator. Left pleural effusion drained for almost 2 liters. Able to liberate from ventilation on 12/11/2016. Doing satisfactory come 12/12/2016 but had acute deterioration on his chronic state with shortness of breath and bradycardia leading to short code without any real likelihood of successful outcome and with at his bedside we allowed him to pass. DISPOSITION: . Bakari Newton DO
== END 2016-12-12 13:08 | disposition expired | DRG 208 ==
LOC: ED 10:28 → ICU 11:28
PROVIDERS: ADMIT Internal Medicine Critical Care Medicine; ATTEND Internal Medicine Critical Care Medicine
PROC: 0BH17EZ Insertion of Endotracheal Airway into Trachea, Via Natural or Artificial Opening (ICD-10-PCS; principal; 2016-12-09)
PROC: 5A1945Z Respiratory Ventilation, 24-96 Consecutive Hours (ICD-10-PCS; 2016-12-09)
PROC: 05HM33Z Insertion of Infusion Device into Right Internal Jugular Vein, Percutaneous Approach (ICD-10-PCS; 2016-12-09)
PROC: B543ZZA Ultrasonography of Right Jugular Veins, Guidance (ICD-10-PCS; 2016-12-09)
PROC: 0W9B3ZX Drainage of Left Pleural Cavity, Percutaneous Approach, Diagnostic (ICD-10-PCS; 2016-12-10)
DX: J96.21 Acute and chronic respiratory failure with hypoxia (principal); G93.41 Metabolic encephalopathy; J90 Pleural effusion, not elsewhere classified; I50.9 Heart failure, unspecified; E11.65 Type 2 diabetes mellitus with hyperglycemia; J44.1 Chronic obstructive pulmonary disease with (acute) exacerbation; J96.22 Acute and chronic respiratory failure with hypercapnia; R40.2430 Glasgow coma scale score 3-8, unspecified time; I25.5 Ischemic cardiomyopathy; I48.2 Chronic atrial fibrillation; D63.8 Anemia in other chronic diseases classified elsewhere; Z88.0 Allergy status to penicillin; Z88.8 Allergy status to other drugs, medicaments and biological substances; Z91.011 Allergy to milk products; Z79.899 Other long term (current) drug therapy
CPT/HCPCS: 36415; 36600; 71010; 80048; 80053; 81003; 81015; 82550; 82553; 82803; 83605; 83735; 83880; 84100; 84132; 84145; 84484; 85025; 85027; 85730; 86140; 87040; 88112; 88305; 93005; 94002; 94003; 94640; 94660; 94760; A9270-GY; J0171; J0330; J0461; J0692; J1120; J1940; J2704; J3010